=== PATIENT | female | born 2000 | race Caucasian/White ===

== ENCOUNTER → 2023-05-07 13:21 | Outpatient (BNVA) | payer BC, MEDICAID, SELFPAY | PROVIDERS: PCP Nurse Practitioner Family; Visit Provider Internal Medicine | DX: R07.9 Chest pain, unspecified (principal); I51.7 Cardiomegaly | CPT/HCPCS: 93005 ==

== ENCOUNTER 2023-05-22 09:02 | Outpatient (CLI) | payer BC, MEDICAID, SELFPAY ==
--- NOTE | 2023-05-22 09:15 | USCV_ITS ---
Gerson Shrestha Age: 22 Gender: F : 2000 Exam Date: 05/22/2023 09:27 Ordering Phys: Andrei Hatfield M.D ([email or web address]) Technologist: Kayden Ingram Exam Location: [facility] [place] Indication: chest pain, sob BP: 116 / 62 HR: 62 Rhythm: Sinus Technical Quality: Adequate MEASUREMENTS (Male / Female) Normal Values 2D ECHO LVOT Diameter 2.0 cm LV Ejection Fraction MOD 2C 59.5 % LV Ejection Fraction 2C AL 59.8 % LA Diameter 3.0 cm LA Width 3.4 cm LA Height 4.3 cm RA Width 2.9 cm RA Height 5.0 cm Aorta at Sinotubular Diameter 2.5 cm IVC Diameter 1.7 cm M-MODE Aortic Annulus Diameter 2.8 cm LA Ao Ratio MM 1.1 MV E Point Septal Separation 1.0 cm DOPPLER AV Peak Velocity 139.0 cm/s LVOT Peak Velocity 81.0 cm/s AV Area Cont Eq vti 2.1 cm squared AV Area Cont Eq pk 1.8 cm squared MV Peak Velocity 167.0 cm/s MV Area PHT 3.7 cm squared Mitral E to A Ratio 1.9 MV E' Velocity 54.5 cm/s Mitral E to MV E' Ratio 9.6 Mitral E to LV E' Lateral Ratio 8.3 Mitral E to LV E' Septal Ratio 11.4 TR Peak Velocity 265.2 cm/s TR Peak Gradient 28.1 mmHg TR Mean Velocity 205.6 cm/s TR Mean Gradient 17.7 mmHg TR Velocity Time Integral 69.7 cm Right Atrial Pressure 3.0 mmHg Pulmonary Artery Systolic Pressu 31.1 mmHg RV Acceleration Time 0.2 s RV Ejection Time 0.3 s RV AcT/ET 0.5 FINDINGS Left Ventricle Left ventricle is normal in size. LV systolic function is normal with EF of 55-60%. Septal motion is consistent with prior cardiac surgery. Right Ventricle Grossly normal Right Atrium Normal in size Left Atrium Normal in size Mitral Valve Structurally normal mitral valve. Moderate eccenteric mitral regurgitation. Aortic Valve Bioprosthetic aortic valve seen. No significant stenosis. DVI is normal and is 0.72. No significant regurgitation. Tricuspid Valve Mild tricuspid regurgitation. RVSP is normal Pulmonic Valve Not well visualized. Mild pulmonic regurgitation. Pericardium Normal Aorta Normal in size IVC Appears to be normal CONCLUSIONS LV systolic function is normal with EF of 55-60%. Septal motion is consistent with prior cardiac surgery. Moderate eccenteric mitral regurgitation Bioprosthetic aortic valve seen. No significant stenosis. DVI is normal and is 0.72. No significant regurgitation. Mild tricuspid regurgitation. Mild pulmonic regurgitation. No comparison studies are available. Andrei Hatfield MD (Electronically Signed) Final Date: 08 June 2023 12:14 S
== END 2023-05-22 09:03 | disposition home or self-care (01) ==
LOC: RAD 09:05
PROVIDERS: PCP Nurse Practitioner Family; Visit Provider Internal Medicine
DX: I08.1 Rheumatic disorders of both mitral and tricuspid valves (principal); R06.02 Shortness of breath; R07.9 Chest pain, unspecified
CPT/HCPCS: 93306

== ENCOUNTER → 2023-10-14 16:46 | Outpatient (BNVA) | payer OTHER, SELFPAY | PROVIDERS: PCP Nurse Practitioner Family; Visit Provider Nurse Practitioner Family | DX: I50.9 Heart failure, unspecified (principal); Z95.3 Presence of xenogenic heart valve; M32.11 Endocarditis in systemic lupus erythematosus; K21.9 Gastro-esophageal reflux disease without esophagitis; D68.61 Antiphospholipid syndrome; M32.9 Systemic lupus erythematosus, unspecified; Z87.74 Personal history of (corrected) congenital malformations of heart and circulatory system; I95.2 Hypotension due to drugs | CPT/HCPCS: 80053; 85651; 86140; 86160; 86162; 86200; 86235; 86255; 86376; 86431 ==

== ENCOUNTER → 2023-10-29 | Outpatient (BNVA) | payer BC, SELFPAY | PROVIDERS: Visit Provider Nurse Practitioner Family | DX: A57 Chancroid (principal) | CPT/HCPCS: 87491; 87591 ==

== ENCOUNTER 2024-01-05 00:46 | Emergency (ER) | payer BC, SELFPAY ==
[2024-01-05 00:52] VITALS: BP 117/84; PULSE 86; RESP 16; TEMP 36.7; O2SAT 99
--- NOTE | 2024-01-05 01:06 | XRR_ITS ---
PROCEDURE INFORMATION: Exam: XR Chest Exam date and time: 01/05/2024 1:19 AM Age: 23 years old Clinical indication: Angina; Prior surgery; Surgery date: 6+ months; Surgery type: Aortic valve; Additional info: Cxp TECHNIQUE: Imaging protocol: Radiologic exam of the chest. Views: 1 view. COMPARISON: No relevant prior studies available. FINDINGS: Lungs: Unremarkable. No consolidation. Pleural spaces: Unremarkable. No pleural effusion. No pneumothorax. Heart/Mediastinum: Unremarkable. No cardiomegaly. Bones/joints: The patient is post sternotomy. Epicardial pacemaker wire lead is noted. XR/XR chest 1V portable [id number] IMPRESSION: No acute cardiopulmonary disease.
--- NOTE | 2024-01-05 01:06 | ECG_ITS ---
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 Measurements Intervals [place] Rate: 77 P: 20 TN: 163 QRS: 11 QRSD: 99 T: 24 QT: 359 QTc: 408 Interpretive Statements SINUS RHYTHM LEFT ATRIAL ENLARGEMENT [-0.15mV P-WAVE IN V1/V2] POSSIBLE ANTERIOR MYOCARDIAL INFARCTION , PROBABLY OLD [30 ms Q WAVE IN V3/V4, OR R < 0.2 mV IN V4] POSSIBLE INFERIOR MYOCARDIAL INFARCTION , PROBABLY OLD [30 ms Q WAVE IN II/aVF] Compared to ECG 05/07/2023 13:26:41 Myocardial infarct finding now present Electronically Signed On 01-05-2024 12:28:59 CDT by Andrei Hatfield M.D. [id number]
[2024-01-05 01:21] VITALS: BP 118/61; PULSE 77; RESP 16; O2SAT 98
[2024-01-05 01:24] LABS: Basophils % 0.5 %; Eosinophils % 0.7 %; Hematocrit 34.8 % (36-47); Lymphocytes # 2.7 10^3/uL (0.8-4.8); Lymphocytes % 44.1 %; Mean Corpuscular HGB Conc 32.8 g/dL (30-55); Mean Corpuscular Hemoglobin 28.6 pg (27-33); Mean Corpuscular Volume 87.2 fl (85-98); Mean Platelet Volume 11.6 fL (7.4-10.4); Monocytes # 0.4 10^3/uL (0.2-0.9); Monocytes % 6.1 %; Neutrophils # 2.96 10^3/uL (1.8-7.7); Neutrophils % 48.4 %; Nucleated Red Blood Cells % 0 %; Platelet Count 194 10^3/cmm (157-399); Red Blood Count 3.99 10^6/uL (3.85-5.65); Red Cell Distribution Width 13.8 % (12.1-15.1)
[2024-01-05 01:37] VITALS: BP 107/69; PULSE 83; RESP 18; O2SAT 95
[2024-01-05 01:42] LABS: Troponin(5th) Baseline < 6 ng/L (0-10)
[2024-01-05] MEDS: aspirin 81 mg Chew Tablet 324 MG PO (01:42)
[2024-01-05 01:58] LABS: Alanine Aminotransferase 9 U/L (0-33); Albumin Level 4.1 g/dL (3.5-5.2); Alkaline Phosphatase 50 U/L (35-105); Anion Gap 13.9 (5-19); Aspartate Amino Transferase 13 U/L (0-32); Blood Urea Nitrogen 12 mg/dL (6-20); Calcium 9.1 mg/dL (8.5-10.5); Carbon Dioxide 23 mmol/L (22-29); Chloride 110 mmol/L (98-107); Creatinine Clr Calc Pharmacy 121.4931; Globulin 2.2 g/dL (1.3-4.6); Glomerular Filtration Rate 90.5 mL/min (90-130); Glucose 100 mg/dL (65-115); NT Pro B Type Natriuretic Pept 785 pg/mL (0-125); Osmolality Calculated 296 mOsm/kg (285-295); Potassium 3.9 mmol/L (3.5-5.1); Sodium 143 mmol/L (136-145); Total Bilirubin 0.3 mg/dL (0.15-1.2); Total Protein 6.3 g/dL (6.6-8.7)
[2024-01-05 02:18] LABS: HCG Qualitative Urine. Negative (Negative)
[2024-01-05 02:23] LABS: Urine Appearance Clear (CLEAR); Urine Color Yellow (Yellow)
[2024-01-05 02:24] LABS: Add Urine Culture? No; Add Urine Microscopic? YES; Bacteria Urine TRACE /hpf; Bilirubin Urine Neg (Negative); Blood Urine Neg (Negative); Glucose Urine UA Norm (Normal); Ketones Urine Negative (Negative); Leukocyte Esterase Urine Trace (Negative); Mucus Urine 2+ /hpf; Nitrate Urine Negative (Negative); Protein Urine Neg (Negative); RBC Urine 0-4 /hpf (0-2); Urobilinogen Urine Neg (Negative); WBC Urine 0-4 /hpf (0-5); pH Urine 6 (5-7)
[2024-01-05 03:43] LABS: Troponin 5 2HR Delta 0.00001 ABS# (0-10)
[2024-01-05 03:44] VITALS: BP 99/57; PULSE 67; RESP 19; O2SAT 98
--- NOTE | 2024-01-05 03:54 | W.ED.CHESTPA ---
HPI - Chest Pain General: Chief Complaint: Chest Pain Stated Complaint: cp Time Seen by Provider: 01/05/24 01:06 History of Present Illness: 23-year-old female presents emergency department stating that she started to have some chest tightness and pressure at approximately 2230 this evening. She states at that time she felt that she was dizzy and lightheaded and that she was going to pass out. 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 She states that her chest pressure is a 2 out of 10 at present. She states she is feeling like she is having intermittent extra heart beats. She denies shortness of breath, fevers chills or night sweats. She denies nausea diaphoresis or vomiting. Associated symptoms: Reports palpitations Review of Systems General: Reports: 10 or more systems reviewed and unremarkable except in HPI and below Card: Reports: chest pain and palpitations; Denies: irregular heart rhythm or edema Neuro: Reports: dizziness; Denies: headache(s), numbness in extremities or weakness in extremities [facility] ED PFSH: Medical History Lupus History of bicuspid aortic valve Family History Grandmother Chronic kidney disease (CKD) Stroke Grandmother Diabetes Other Lung disease Denies family history of CAD (coronary artery disease) Clotting disorder Dementia Hyperlipidemia Psychiatric illness Suicide Anesthesia complication Bleeding disorder Family history of premature coronary artery disease Cancer Hypertension Social History Smoking and tobacco/nicotine status: never used tobacco/nicotine Alcohol intake: never Substance/Drug Use: never Female Reproductive History: Date of last menstrual period: 12/11/23 Physical Exam Narrative: EXAM NARRATIVE: Constitutional: the patient appears well nourished and with normal development. Vital signs reviewed as documented. HENMT: Normocephalic, atraumatic. External ears normal appearance without drainage. Nose without drainage, normal appearance. Mucus membranes moist. Neck is supple, No jugular venous distension, trachea is midline, no appreciable carotid bruits. No lymphadenopathy. No meningeal signs. Flexion, extension and lateral rotation is without pain. Eyes: Pupils are equal, round, reactive to light and accommodation. No scleral icterus. Extra-ocular movement are intact. Thorax is symmetrical and with equal rise and fall with respirations. Resp: Lungs are clear to auscultation. No wheezes, rales, crackles or ronchi at present. Cardio: Regular rate and rhythm. Positive S1, S2. No appreciable murmurs, rubs or gallops. GI: Abdominal exam reveals normal bowel sounds to all quadrants. No organomegaly. No obvious palpable masses noted. No hepatomegally appreciated. Soft, non-tender to palpation. Extremity: Extremities are non-edematous and both femoral and pedal pulses are 2+ and equal bilaterally. Moves all extremities well, sensation in all extremities. Neuro: Alert and oriented x4, person, place, time and situation. Cranial nerves II through XII are grossly intact, there is no focal neurological deficits that I can appreciate at present. Sensation intact to all extremities. 2-point discrimination intact. Light touch intact to all extremities. Motor strength in the upper and lower extremities are equal and bilateral 5/5. Psych: Cooperative, calm, normal thought process, appropriate judgment. Skin: No lesions, rashes. No gross abnormalities noted. Back: Symmetrical, no obvious deformity, No CVA tenderness Course Vital Signs: Vital signs: Vital Signs Temperature 98.1 F 01/05/24 00:52 Pulse Rate 67 01/05/24 03:44 Respiratory Rate 19 H 01/05/24 03:44 Blood Pressure 99/57 01/05/24 03:44 Pulse Oximetry 98 01/05/24 03:44 Oxygen Delivery Me thod Room Air 01/05/24 03:44 MDM - Chest Pain Medical Decision Making Physical exam completed and documented I will obtain a CBC and CMP and both were essentially unremarkable. Twelve-lead EKG demonstrated sinus rhythm her cardiac cath technician did demonstrate intermittent PVCs. Cardiac enzymes were negative. Her BNP was slightly elevated at 785. Urinalysis was negative. Chest x-ray was unremarkable. I discussed the laboratory findings with the patient and we will have her follow-up with her primary care and her county program technician. Medical Records I reviewed the patient's medical records. Lab Data I reviewed the patient's lab results. 01/05/24 01:17 01/05/24 01:17 Radiology Impressions Chest X-Ray 01/05/24 01:06 IMPRESSION: No acute cardiopulmonary disease. Laboratory Results WBC 6.10 10^3/uL (3.29-11.43) 01/05/24 01:17 RBC 3.99 10^6/uL (3.85-5.65) 01/05/24 01:17 Hgb 11.40 g/dL (11.27-16.99) 01/05/24 01:17 Hct 34.8 % (36-47) L 01/05/24 01:17 MCV 87.2 fl (85-98) 01/05/24 01:17 MCH 28.6 pg (27-33) 01/05/24 01:17 MCHC 32.8 g/dL (30-55) 01/05/24 01:17 RDW 13.8 % (12.1-15.1) 01/05/24 01:17 Plt Count 194 10^3/cmm (157-399) 01/05/24 01:17 MPV 11.6 fL (7.4-10.4) H 01/05/24 01:17 Neut % (Auto) 48.4 % 01/05/24 01:17 Lymph % (Auto) 44.1 % 01/05/24 01:17 [place] % (Auto) 6.1 % 01/05/24 01:17 Eos % (Auto) 0.7 % 01/05/24 01:17 Baso % (Auto) 0.5 % 01/05/24 01:17 Neut # (Auto) 2.96 10^3/uL (1.8-7.7) 01/05/24 01:17 Lymph # (Auto) 2.7 10^3/uL (0.8-4.8) 01/05/24 01:17 [place] # (Auto) 0.4 10^3/uL (0.2-0.9) 01/05/24 01:17 Eos # (Auto) 0.0 10^3/uL (0.0-0.8) 01/05/24 01:17 Baso # (Auto) 0.0 10^3/uL (0.0-0.1) 01/05/24 01:17 Nucleated RBC % (auto) 0 % 01/05/24 01:17 Nucleated RBCs # 0.0 /100WBC 01/05/24 01:17 PT 15.60 SECONDS (12.1-14.9) H 01/05/24 01:17 INR 1.20 (0.8-1.2) 01/05/24 01:17 Sodium 143 mmol/L (136-145) 01/05/24 01:17 Potassium 3.9 mmol/L (3.5-5.1) 01/05/24 01:17 Chloride 110 mmol/L (98-107) H 01/05/24 01:17 Carbon Dioxide 23 mmol/L (22-29) 01/05/24 01:17 Anion Gap 13.9 (5-19) 01/05/24 01:17 BUN 12 mg/dL (6-20) 01/05/24 01:17 Creatinine 0.8 mg/dL (0.5-0.9) 01/05/24 01:17 GFR Calculation 90.5 mL/min (90-130) 01/05/24 01:17 Glucose 100 mg/dL (65-115) 01/05/24 01:17 Calculated Osmolality 296 mOsm/kg (285-295) H 01/05/24 01:17 Calcium 9.1 mg/dL (8.5-10.5) 01/05/24 01:17 Total Bilirubin 0.3 mg/dL (0.15-1.2) 01/05/24 01:17 AST 13 U/L (0-32) 01/05/24 01:17 ALT 9 U/L (0-33) 01/05/24 01:17 Alkaline Phosphatase 50 U/L (35-105) 01/05/24 01:17 Troponin T Baseline < 6 ng/L (0-10) 01/05/24 01:17 Troponin T 120 Minute 6.00 ng/L (0-10) 01/05/24 03:18 Delta Troponin T 0.17811 ABS# (0-10) 01/05/24 03:18 NT-Pro-B Natriuret Pep 785 pg/mL (0-125) H 01/05/24 01:17 Total Protein 6.3 g/dL (6.6-8.7) L 01/05/24 01:17 Albumin 4.1 g/dL (3.5-5.2) 01/05/24 01:17 Globulin 2.2 g/dL (1.3-4.6) 01/05/24 01:17 HCG, Qual Negative (Negative) 01/05/24 02:10 Urine Color Yellow (Yellow) 01/05/24 02:10 Urine Appearance Clear (CLEAR) 01/05/24 02:10 Urine pH 6 (5-7) 01/05/24 02:10 Ur Specific [place] 1.020 (1.005-1.030) 01/05/24 02:10 Urine Protein Neg (Negative) 01/05/24 02:10 Urine Glucose (UA) Norm (Normal) 01/05/24 02:10 Urine Ketones Negative (Negative) 01/05/24 02:10 Urine Blood Neg (Negative) 01/05/24 02:10 Urine Nitrate Negative (Negative) 01/05/24 02:10 Urine Bilirubin Neg (Negative) 01/05/24 02:10 Urine Urobilinogen Neg mg/dL (Negative) 01/05/24 02:10 Ur Leukocyte Esterase Trace (Negative) H 01/05/24 02:10 Urine RBC 0-4 /hpf (0-2) H 01/05/24 02:10 Urine WBC 0-4 /hpf (0-5) H 01/05/24 02:10 Ur Squamous Epith Cells 5-10 /hpf (0-5) H 01/05/24 02:10 Amorphous Sediment Not Reportable 01/05/24 02:10 Urine Bacteria Trace /hpf (NONE) 01/05/24 02:10 Urine Mucus 2+ /hpf 01/05/24 02:10 All radiology interpretation(s) finalized by discharge EKG Data EKG 1: Interpretation: Twelve-lead EKG obtained at 00 48 and reviewed at 00 50 demonstrates sinus rhythm, ventricular rate 77, SC interval 163, QRS duration 99, QT 359, QTc [address] elevation or depression to demonstrate acute ischemia or infarction at present. Discharge Plan Discharge Patient Disposition: Home Clinical Impression: Atypical chest pain, Heart palpitations Condition: Stable Prescriptions: No Action bumetanide 1 mg tablet 1 mg PO DAILY 30 Days Qty: 30 5RF carvedilol 3.125 mg tablet 3.125 mg PO BID 30 Days Qty: 60 5RF enoxaparin 60 mg/0.6 mL syringe 60 mg SUBCUT BID 30 Days Qty: 36 3RF famotidine 20 mg tablet 20 mg PO DAILY 30 Days Qty: 30 3RF midodrine 5 mg tablet See Rx Instructions .ROUTE .COMPLEX Qty: 30 3RF Dose Instruction: Take 1 tablet by mouth once daily Rx Instructions: Take 1 tablet by mouth once daily mycophenolate mofetil 500 mg tablet 500 mg PO QDAY Qty: 30 3RF hydroxychloroquine 200 mg tablet See Rx Instructions .ROUTE .COMPLEX Qty: 60 3RF Dose Instruction: Take 1 tablet by mouth twice daily Rx Instructions: Take 1 tablet by mouth twice daily potassium chloride 10 mEq capsule, extended release See Rx Instructions .ROUTE .COMPLEX Qty: 30 3RF Dose Instruction: Take 1 capsule by mouth once daily Rx Instructions: Take 1 capsule by mouth once daily Entresto 24-26 mg tablet 1 tab PO BID Qty: 60 3RF clindamycin HCl 300 mg capsule 300 mg PO TID 10 Days Qty: 30 0RF Discharge Orders: Discharge ED (Routine); Ordered 01/05/24 Ordered By: Jay Blanco Referrals: Mary Steele NP [Primary Care Provider] - Discharge Diet: Usual diet Discharge Activity: Resume usual activity Patient Instructions: Opioid Safety, Pain Management Activity Restrictions/Additional Instructions: Activity Restrictions/Additional Instructions: Thank you for choosing [facility] for your healthcare needs today. Please realize that you were seen in the Emergency Department and that we are providing you with an emergency medical screening exam and this may not be a complete and all inclusive of all the testing and or medical work-up that you may need to determine your ailment or severity of your illness. It is very important that you follow-up as instructed with your Primary care provider or Specialist for additional evaluation and to discuss your medical treatment plan. You may return to the Emergency Department should you have concerns or if your condition changes or worsens in any way. Coding Level of Care Code ED Paste Thinner for Elizabeth Powers
[2024-01-05 04:08] VITALS: BP 98/64; PULSE 76; RESP 19; O2SAT 97
== END 2024-01-05 04:19 | disposition home or self-care (01) ==
PROVIDERS: Emergency Provider Internal Medicine; PCP Nurse Practitioner Family
DX: R07.89 Other chest pain (principal); R00.2 Palpitations
CPT/HCPCS: 71045; 80053; 81001; 81025; 83880; 84484; 85025; 85610; 93005; 99285

== ENCOUNTER 2024-01-30 12:09 | Emergency (ER) | payer BC, OTHER, SELFPAY ==
[2024-01-30 12:13] VITALS: BP 93/54; PULSE 83; RESP 18; TEMP 36.8; O2SAT 99; BMI 25.8
[2024-01-30 13:01] LABS: Basophils % 0.3 %; Eosinophils % 0.5 %; Hematocrit 34.7 % (36-47); Lymphocytes # 1.5 10^3/uL (0.8-4.8); Mean Corpuscular Hemoglobin 28.5 pg (27-33); Mean Corpuscular Volume 89.2 fl (85-98); Mean Platelet Volume 11.7 fL (7.4-10.4); Monocytes # 0.5 10^3/uL (0.2-0.9); Monocytes % 6.4 %; Neutrophils # 5.57 10^3/uL (1.8-7.7); Neutrophils % 72.4 %; Nucleated Red Blood Cells % 0 %; Platelet Count 162 10^3/cmm (157-399); Red Blood Count 3.89 10^6/uL (3.85-5.65); Red Cell Distribution Width 13.8 % (12.1-15.1); White Blood Count 7.69 10^3/uL (3.29-11.43)
[2024-01-30] MEDS: sodium chloride 0.9% 500 ML IV (13:07)
[2024-01-30 13:14] LABS: INR 1.16 (0.8-1.2)
[2024-01-30 13:17] LABS: Lactic Sepsis W/Reflex 0.8 mmol/L (0.5-2.2)
[2024-01-30 13:20] LABS: HCG, Serum Qual Negative (Negative)
[2024-01-30] MEDS: HYDROmorphone 1 mg/mL INJ 1 mL IV (13:22)
[2024-01-30 13:28] LABS: Alanine Aminotransferase 45 U/L (0-33); Albumin Level 3.8 g/dL (3.5-5.2); Alkaline Phosphatase 92 U/L (35-105); Anion Gap 12.7 (5-19); Aspartate Amino Transferase 79 U/L (0-32); Blood Urea Nitrogen 12 mg/dL (6-20); Calcium 8.6 mg/dL (8.5-10.5); Carbon Dioxide 24 mmol/L (22-29); Chloride 105 mmol/L (98-107); Creatinine Clr Calc Pharmacy 161.9908; Globulin 2.6 g/dL (1.3-4.6); Glomerular Filtration Rate 126.2 mL/min (90-130); Glucose 94 mg/dL (65-115); NT Pro B Type Natriuretic Pept 1332 pg/mL (0-125); Osmolality Calculated 286 mOsm/kg (285-295); Potassium 3.7 mmol/L (3.5-5.1); Sodium 138 mmol/L (136-145); Total Bilirubin 0.6 mg/dL (0.15-1.2); Total Protein 6.4 g/dL (6.6-8.7)
[2024-01-30 13:33] LABS: Add Urine Microscopic? NO; Charge for UA Resulting for Rev
[2024-01-30 13:39] LABS: Bilirubin Urine Neg (Negative); Blood Urine Neg (Negative); Glucose Urine UA Norm (Normal); Ketones Urine Negative (Negative); Leukocyte Esterase Urine Negative (Negative); Nitrate Urine Negative (Negative); Protein Urine Neg (Negative); Specific Gravity, Urine 1.015 (1.005-1.030); Sulfosalicylic Acid Urine Negative (Negative); Urine Appearance Clear (CLEAR); Urine Color Yellow (Yellow); Urobilinogen Urine 1 mg/dL (Negative); pH Urine 8 (5-7)
--- NOTE | 2024-01-30 13:53 | CTR_ITS ---
PROCEDURE INFORMATION: Exam: CT Abdomen And Pelvis With Contrast Exam date and time: 01/30/2024 2:03 PM Age: 23 years old Clinical indication: Abdominal pain; Flank; Other: Bilateral; Prior surgery; Surgery date: 6+ months; Surgery type: Aortic valve; Additional info: Severe bilateral flank and lower abdominal pain. , Extensive medical HX including aortic root dissection TECHNIQUE: Imaging protocol: Computed tomography of the abdomen and pelvis with contrast. Axial, coronal and sagittal reformatted images were created and reviewed. Radiation optimization: All CT scans at this facility use at least one of these dose optimization techniques: automated exposure control; mA and/or kV adjustment per patient size (includes targeted exams where dose is matched to clinical indication); or iterative reconstruction. Contrast material: OMNI 350; Contrast volume: 100 ml; Contrast route: INTRAVENOUS (IV); COMPARISON: CR (CHEST, ) 01/05/2024 1:19 AM RADIATION DOSE METRICS: Total DLP (mGy-cm): 594.53 FINDINGS: Heart: Evidence of open heart surgery. Liver: Mild nonspecific periportal edema. Gallbladder and bile ducts: No radiodense gallstones. No biliary ductal dilatation. Pancreas: Unremarkable. Spleen: Unremarkable. Adrenal glands: Normal. No mass. Kidneys and ureters: No mass. No radiodense calculi. No hydronephrosis. Stomach and bowel: No bowel wall thickening. No obstruction. No pneumatosis. Appendix: Normal. Intraperitoneal space: Small nonspecific free pelvic fluid, likely physiologic. No organized fluid collection. No free air. Vasculature: Unremarkable. No aneurysm. Lymph nodes: Small mesenteric lymph nodes, nonspecific in appearance. No pathologically enlarged lymph nodes. Urinary bladder: Unremarkable as visualized. Reproductive: 4.5 x 3.7 cm right adnexal cystic lesion with nonspecific prominence of the para-ovarian vasculature. Bones/joints: No acute osseous abnormality. Soft tissues: Unremarkable. CT/CT abdomen pelvis w con* [id number] IMPRESSION: 1. 4.5 x 3.7 cm right adnexal cystic lesion with nonspecific prominence of the para-ovarian vasculature and small nonspecific free pelvic fluid. Pelvic ultrasound is recommended for further evaluation and to exclude ovarian torsion. 2. Additional findings, as above.
[2024-01-30] MEDS: iohexol 350 mg/mL 500 mL Btl (per mL) IV (14:03)
[2024-01-30 14:57] VITALS: PULSE 80; RESP 18; O2SAT 99
--- NOTE | 2024-01-30 14:59 | USR_ITS ---
PROCEDURE INFORMATION: Exam: US Duplex Artery and Vein of the Abdominal and/or Reproductive Organs. Complete Ovaries Exam date and time: 01/30/2024 3:24 PM Age: 23 years old Clinical indication: Abnormal findings; Abnormal imaging test; Additional info: Concern for ovarian torsion based on HX, exam, CT LABS AND CLINICAL REPORTS: Last menstrual period start date: Unknown TECHNIQUE: Imaging protocol: Real-time duplex ultrasound scan of the arterial and venous flow with color Doppler flow and spectral waveform analysis with image documentation. Complete duplex exam focused on the ovaries. Duplex exam was performed to evaluate for torsion and other vascular conditions. COMPARISON: CT abdomen pelvis w con* [id number] 01/30/2024 2:03 PM FINDINGS: Right ovary/adnexa: Normal duplex of the ovary. Normal Doppler waveforms and color flow. Arterial and venous flow are normal. No evidence of ovarian torsion. Left ovary/adnexa: Normal duplex of the ovary. Normal Doppler waveforms and color flow. Arterial and venous flow are normal. No evidence of ovarian torsion. PROCEDURE INFORMATION: Exam: US Pelvis, Transvaginal Exam date and time: 01/30/2024 3:24 PM Age: 23 years old Clinical indication: Abnormal findings; Abnormal imaging test; Additional info: Concern for ovarian torsion based on HX, exam, CT TECHNIQUE: Imaging protocol: Real-time transvaginal pelvic ultrasound with image documentation. Transvaginal imaging was used for better evaluation of the endometrium, adnexa, and/or cervix. COMPARISON: CT abdomen pelvis w con* [id number] 01/30/2024 2:03 PM FINDINGS: Uterus: 7.3 x 3.3 x 4.7 cm. Normal endometrial thickness, measuring approximately 6 mm. Right ovary/adnexa: 5.6 x 4.6 x 5.3 cm. 4.6 x 3.2 x 5.6 cm cyst. No solid mass. Normal ovarian blood flow. Left ovary/adnexa: 2.3 x 1.7 x 2.8 cm. No mass. Normal ovarian blood flow. Intraperitoneal space: Moderate free pelvic fluid. US/US pelvis lmt w transvag IMPRESSION: Normal ovarian arterial and venous vascular flow. No evidence ovarian torsion. IMPRESSION: 4.6 x 3.2 x 5.6 cm right ovarian cyst and moderate free pelvic fluid.
[2024-01-30 15:14] VITALS: BP 85/52
[2024-01-30] MEDS: midodrine 5 mg TABLET PO (15:14)
--- NOTE | 2024-01-30 15:35 | PC.NURSE ---
ASSUMED CARE OF PATIENT FROM BELINDA APPIAH AT 1515.
[2024-01-30 16:30] VITALS: BP 99/63; PULSE 78; O2SAT 100
--- NOTE | 2024-01-30 16:58 | ED_ITS ---
HPI - Back Pain/Injury 2 General: Chief Complaint: Back Pain/Injury Stated Complaint: FLANK PAIN Time Seen by Provider: 01/30/24 12:16 Source: patient, family and EMS Mode of arrival: EMS Limitations: no limitations History of Present Illness: Patient presents to the ED with complaint of bilateral flank pain and nausea vomiting sudden onset last night. Denies any dysuria vaginal discharge. Denies any sexual activity not on any contraceptives. EMS administered 200 mcg of fentanyl 4 mg Zofran which patient reports pain is 6 out of 10. Was 10 out of 10. Patient has a fairly extensive medical history for someone her age. 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 Happened last November. Patient takes Bumex carvedilol (midodrine translocated midodrine mycophenolate, entresto. She reports no previous abdominal surgeries. Review of Systems 2 General: Reports: 10 or more systems reviewed and unremarkable except in HPI and below PFSH ED 2 PFSH: Medical History Lupus History of bicuspid aortic valve Family History Grandmother Chronic kidney disease (CKD) Stroke Grandmother Diabetes Other Lung disease Denies family history of CAD (coronary artery disease) Clotting disorder Dementia Hyperlipidemia Psychiatric illness Suicide Anesthesia complication Bleeding disorder Family history of premature coronary artery disease Cancer Hypertension Social History Smoking and tobacco/nicotine status: never used tobacco/nicotine Alcohol intake: never Substance/Drug Use: never Physical Exam 2 Const: COMMON NORMALS: no acute distress (But does appear to be in moderate amount of discomfort), average body habitus, patient oriented x3, healthy appearing, alert and well nourished GENERAL APPEARANCE: cooperative, well kempt and well developed; not comfortable and not in distress HENMT: COMMON NORMALS: normocephalic, atraumatic, external ears normal and moist oral mucous membranes HEAD & SCALP: normocephalic and atraumatic E XTERNAL EAR: Yes external ears normal Eye: COMMON NORMALS: Equal, round and reactive pupils present, EOMs intact bilaterally and conjunctivae normal CONJUNCTIVA: Yes conjunctivae normal P UPIL: Yes Equal, round and reactive pupils present Neck/C-Spine: COMMON NORMALS: full ROM, no lymphadenopathy and supple Chest: CHEST: Yes Symmetrical chest wall rise and No Surgical scars present (Chest) Resp: COMMON NORMALS: normal respiratory effort, No retractions, No use of accessory muscles and clear to auscultation bilaterally AUSCULTATION: clear to auscultation bilaterally Cardio: COMMON NORMALS: regular rate, regular rhythm, S1 normal heart sound present, S2 normal heart sound present, No gallops present (Cardio), No clicks present (Cardio), No murmurs present (Cardio) and No rub (Cardio) RATE: r egular rate RHYTHM: regular rhythm HEART SOUNDS: S1 normal heart sound present, S2 normal heart sound present and no murmurs PERIPHERAL PULSES: o ther (Radial pulses 2+ and symmetric) GI: COMMON NORMALS: Soft to palpation, non-tender and no masses INSPECTION: No abdominal distension PALPATION: Yes Soft to palpation, No Guarding due to palpation present (GI) and No Rebound tenderness present OTHER: Bilateral lower abdominal tenderness with increased tenderness in the adnexal area on palpation. As well as may be some in the middle of the abdomen. : COMMON NORMALS: Yes no CVA tenderness BLADDER/KIDNEY EXAM: Yes no CVA tenderness Back/Pelvis: COMMON NORMALS: no CVA tenderness Extremity: COMMON NORMALS: normal to inspection, full ROM, capillary refill normal and no clubbing, cyanosis or edema Neuro: COMMON NORMALS: patient oriented x3 SENSORIUM/ORIENTATION: Yes alert Psych: APPEARANCE: Yes well kempt Skin: COMMON NORMALS: no rashes or lesions noted, no wounds, turgor normal and no jaundice GENERAL SKIN EXAM: no rashes or lesions noted and turgor normal Course 2 Reevaluation(s): Reevaluation #1: Still having some pain. Patient reports improvement from earlier expresses understanding of counseling. Time: 17:00 Vital Signs: Vital signs: Vital Signs Temperature 98.2 F 01/30/24 12:13 Pulse Rate 78 01/30/24 16:30 Respiratory Rate 18 01/30/24 14:57 Blood Pressure 99/63 01/30/24 16:30 Pulse Oximetry 100 01/30/24 16:30 Oxygen Delivery Me thod Room Air 01/30/24 12:13 MDM - Back Pain/Injury Medical Decision Making CT scan of the abdomen pelvis done and I saw no acute abnormality, radiology read specifies a right adnexal cystic lesion with some prominence in the paraovarian vasculature and suggested pelvic ultrasound to rule out torsion. Labs are fairly unremarkable thankfully. Patient was given dose of midodrine for her blood pressure is but is due for the time she normally takes it. Also had 500 fluids, 1 Dilaudid, Toradol. Due to timing did give patient her carvedilol. Lactic acid is normal. Serum Preg negative. Medical Records I reviewed the patient's medical records. Labs I reviewed the patient's lab results. 01/30/24 12:52 01/30/24 12:52 Radiology Impressions Abdomen/Pelvis CT 01/30/24 13:53 IMPRESSION: 1. 4.5 x 3.7 cm right adnexal cystic lesion with nonspecific prominence of the para-ovarian vasculature and small nonspecific free pelvic fluid. Pelvic ultrasound is recommended for further evaluation and to exclude ovarian torsion. 2. Additional findings, as above. Pelvic/Transvag US 01/30/24 14:59 IMPRESSION: Normal ovarian arterial and venous vascular flow. No evidence ovarian torsion. IMPRESSION: 4.6 x 3.2 x 5.6 cm right ovarian cyst and moderate free pelvic fluid. Laboratory Results WBC 7.69 10^3/uL (3.29-11.43) 01/30/24 12:52 RBC 3.89 10^6/uL (3.85-5.65) 01/30/24 12:52 Hgb 11.10 g/dL (11.27-16.99) L 01/30/24 12:52 Hct 34.7 % (36-47) L 01/30/24 12:52 MCV 89.2 fl (85-98) 01/30/24 12:52 MCH 28.5 pg (27-33) 01/30/24 12:52 MCHC 32.0 g/dL (30-55) 01/30/24 12:52 RDW 13.8 % (12.1-15.1) 01/30/24 12:52 Plt Count 162 10^3/cmm (157-399) 01/30/24 12:52 MPV 11.7 fL (7.4-10.4) H 01/30/24 12:52 Neut % (Auto) 72.4 % 01/30/24 12:52 Lymph % (Auto) 20.0 % 01/30/24 12:52 [place] % (Auto) 6.4 % 01/30/24 12:52 Eos % (Auto) 0.5 % 01/30/24 12:52 Baso % (Auto) 0.3 % 01/30/24 12:52 Neut # (Auto) 5.57 10^3/uL (1.8-7.7) 01/30/24 12:52 Lymph # (Auto) 1.5 10^3/uL (0.8-4.8) 01/30/24 12:52 [place] # (Auto) 0.5 10^3/uL (0.2-0.9) 01/30/24 12:52 Eos # (Auto) 0.0 10^3/uL (0.0-0.8) 01/30/24 12:52 Baso # (Auto) 0.0 10^3/uL (0.0-0.1) 01/30/24 12:52 Nucleated RBC % (auto) 0 % 01/30/24 12:52 Nucleated RBCs # 0.0 /100WBC 01/30/24 12:52 PT 15.20 SECONDS (12.1-14.9) H 01/30/24 12:52 INR 1.16 (0.8-1.2) 01/30/24 12:52 APTT 33.0 SECONDS (23.9-36.7) 01/30/24 12:52 Sodium 138 mmol/L (136-145) 01/30/24 12:52 Potassium 3.7 mmol/L (3.5-5.1) 01/30/24 12:52 Chloride 105 mmol/L (98-107) 01/30/24 12:52 Carbon Dioxide 24 mmol/L (22-29) 01/30/24 12:52 Anion Gap 12.7 (5-19) 01/30/24 12:52 BUN 12 mg/dL (6-20) 01/30/24 12:52 Creatinine 0.6 mg/dL (0.5-0.9) 01/30/24 12:52 GFR Calculation 126.2 mL/min (90-130) 01/30/24 12:52 Glucose 94 mg/dL (65-115) 01/30/24 12:52 Calculated Osmolality 286 mOsm/kg (285-295) 01/30/24 12:52 Lactic Acid 0.8 mmol/L (0.5-2.2) 01/30/24 12:52 Calcium 8.6 mg/dL (8.5-10.5) 01/30/24 12:52 Total Bilirubin 0.6 mg/dL (0.15-1.2) 01/30/24 12:52 AST 79 U/L (0-32) H 01/30/24 12:52 ALT 45 U/L (0-33) H 01/30/24 12:52 Alkaline Phosphatase 92 U/L (35-105) 01/30/24 12:52 NT-Pro-B Natriuret Pep 1332 pg/mL (0-125) H 01/30/24 12:52 Total Protein 6.4 g/dL (6.6-8.7) L 01/30/24 12:52 Albumin 3.8 g/dL (3.5-5.2) 01/30/24 12:52 Globulin 2.6 g/dL (1.3-4.6) 01/30/24 12:52 HCG, Qual Negative (Negative) 01/30/24 12:52 Urine Color Yellow (Yellow) 01/30/24 13:15 Urine Appearance Clear (CLEAR) 01/30/24 13:15 Urine pH 8 (5-7) H 01/30/24 13:15 Ur Specific [place] 1.015 (1.005-1.030) 01/30/24 13:15 Urine Protein Neg (Negative) 01/30/24 13:15 Urine Glucose (UA) Norm (Normal) 01/30/24 13:15 Urine Ketones Negative (Negative) 01/30/24 13:15 Urine Blood Neg (Negative) 01/30/24 13:15 Urine Nitrate Negative (Negative) 01/30/24 13:15 Urine Bilirubin Neg (Negative) 01/30/24 13:15 Prot Sulfosalicylic Acd Negative (Negative) 01/30/24 13:15 Urine Urobilinogen 1 mg/dL (Negative) H 01/30/24 13:15 Ur Leukocyte Esterase Negative (Negative) 01/30/24 13:15 All radiology interpretation(s) finalized by discharge Discharge Plan Discharge Patient Disposition: Home Clinical Impression: Ovarian cyst rupture Condition: Stable Prescriptions: New Percocet 5-325 mg tablet 1 tab PO Q8H PRN (Reason: pain, severe) Qty: 7 0RF ondansetron 4 mg tablet,disintegrating 4 mg PO Q8H PRN (Reason: nausea and vomiting) 5 Days Qty: 14 0RF ketorolac 10 mg tablet 10 mg PO Q4H PRN (Reason: pain) 5 Days Qty: 20 0RF Rx Instructions: do not exceed 4 doses per day No Action bumetanide 1 mg tablet 1 mg PO DAILY 30 Days Qty: 30 5RF carvedilol 3.125 mg tablet 3.125 mg PO BID 30 Days Qty: 60 5RF enoxaparin 60 mg/0.6 mL syringe 60 mg SUBCUT BID 30 Days Qty: 36 3RF famotidine 20 mg tablet 20 mg PO DAILY 30 Days Qty: 30 3RF midodrine 5 mg tablet See Rx Instructions .ROUTE .COMPLEX Qty: 30 3RF Dose Instruction: Take 1 tablet by mouth once daily Rx Instructions: Take 1 tablet by mouth once daily mycophenolate mofetil 500 mg tablet 500 mg PO QDAY Qty: 30 3RF hydroxychloroquine 200 mg tablet See Rx Instructions .ROUTE .COMPLEX Qty: 60 3RF Dose Instruction: Take 1 tablet by mouth twice daily Rx Instructions: Take 1 tablet by mouth twice daily potassium chloride 10 mEq capsule, extended release See Rx Instructions .ROUTE .COMPLEX Qty: 30 3RF Dose Instruction: Take 1 capsule by mouth once daily Rx Instructions: Take 1 capsule by mouth once daily Entresto 24-26 mg tablet 1 tab PO BID Qty: 60 3RF clindamycin HCl 300 mg capsule 300 mg PO TID 10 Days Qty: 30 0RF Discharge Orders: Discharge ED (Routine); Ordered 01/30/24 Ordered By: Hang Leslie Referrals: Mary Steele NP [Primary Care Provider] - Discharge Diet: Usual diet Discharge Activity: Limit activity as instructed Patient Instructions: Ruptured Ovarian Cyst (ED), Opioid Safety, Pain Management Activity Restrictions/Additional Instructions: Make sure to establish and follow-up with a [facility]ET[facility] ATTENDANT within 1-2 wks. 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
[2024-01-30] MEDS: carvedilol 3.125 mg Tablet PO (17:06)
[2024-01-30] MEDS: ketorolac 30 mg/mL INJ IVP (17:06)
[2024-01-30] MEDS: HYDROcodone-acetaminophen 7.5-325 mg Tablet 1 TAB PO (17:06)
[2024-01-30 17:50] VITALS: BP 96/60; PULSE 77; RESP 17; O2SAT 99
== END 2024-01-30 17:52 | disposition home or self-care (01) ==
PROVIDERS: Emergency Provider Emergency Medicine; PCP Nurse Practitioner Family
DX: N83.201 Unspecified ovarian cyst, right side (principal)
CPT/HCPCS: 36415; 74177; 76830; 76857; 80053; 81003; 83605; 83880; 84703; 85025; 85610; 85730; 96361; 96374; 96375; 99285; J1170; J1885; J7040; Q9967

== ENCOUNTER 2024-05-02 00:43 | Emergency (ER) | payer OTHER, BC, SELFPAY ==
[2024-05-02] VITALS (7 sets, daily range): BP systolic 118–123; BP diastolic 69–94; PULSE 68–94; RESP 16–18; TEMP 36.8; O2SAT 97–100; BMI 26.6
--- NOTE | 2024-05-02 00:49 | ECG_ITS ---
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 Measurements Intervals [place] Rate: 79 P: 15 MO: 173 QRS: 28 QRSD: 107 T: 56 QT: 355 QTc: 409 Interpretive Statements SINUS RHYTHM LEFT ATRIAL ENLARGEMENT [-0.15mV P-WAVE IN V1/V2] Compared to ECG 01/05/2024 00:48:03 Myocardial infarct finding no longer present Electronically Signed On 05-03-2024 7:39:17 CDT by Andrei Hatfield M.D. [id number] f
--- NOTE | 2024-05-02 00:57 | CTR_ITS ---
PROCEDURE INFORMATION: Exam: CTA Chest With Contrast CTA Abdomen and Pelvis With Contrast Exam date and time: 05/02/2024 1:43 AM Age: 23 years old Clinical indication: Left-sided; Other: N/a; Prior surgery; Surgery date: 6+ months; Surgery type: Aortic valve replacement; Patient HX: C/O left sided chest pain onset two hours ago. History of aortic root rupture with abscess. ; Additional info: Cp HX of aortic rupture following abscess TECHNIQUE: Imaging protocol: Computed tomographic angiography of the chest with contrast. Exam focused on the arteries. Computed tomographic angiography of the abdomen and pelvis with contrast. Exam focused on the arteries. 3D rendering (Not supervised by radiologist): MIP and/or 3D reconstructed images were created by the technologist. Radiation optimization: All CT scans at this facility use at least one of these dose optimization techniques: automated exposure control; mA and/or kV adjustment per patient size (includes targeted exams where dose is matched to clinical indication); or iterative reconstruction. Contrast material: OMNI 350; Contrast volume: 100 ml; Contrast route: INTRAVENOUS (IV); COMPARISON: CT abdomen pelvis w con* [id number] 01/30/2024 2:03 PM RADIATION DOSE METRICS: Total DLP (mGy-cm): 903.67 FINDINGS: VASCULATURE: Pulmonary arteries: Normal. No pulmonary emboli. Aorta: No aortic aneurysm. No aortic dissection. Celiac trunk and mesenteric arteries: No occlusion or significant stenosis. Renal arteries: No occlusion or significant stenosis. Right iliac arteries: No occlusion or significant stenosis. Left iliac arteries: No occlusion or significant stenosis. CHEST: Lungs: Unremarkable. No consolidation. No masses. Pleural spaces: Unremarkable. No pneumothorax. No pleural effusion. Heart: Unremarkable. No cardiomegaly. No pericardial effusion. ABDOMEN AND PELVIS: Liver: No mass. Gallbladder and biliary ducts: Unremarkable. No calcified stones. No ductal dilation. Pancreas: Unremarkable. No mass. No ductal dilation. Spleen: Unremarkable. No splenomegaly. Adrenal glands: Unremarkable. No mass. Kidneys and ureters: Unremarkable. No solid mass. No hydronephrosis. Stomach and bowel: There are a few air-fluid levels involving minimally distended loops of small bowel. This is a nonspecific finding but can be seen with an ileus. No bowel wall thickening is noted. Appendix: No evidence of appendicitis. Intraperitoneal space: Unremarkable. No free air. No significant fluid collection. Urinary bladder: Unremarkable. No mass. Reproductive: There is a right adnexal/ovarian cyst measuring 5.7 cm in size (previously 5 cm in size). Lymph nodes: Unremarkable. No enlarged lymph nodes. Bones/joints: There are postoperative changes status post median sternotomy. No acute bony abnormalities are otherwise appreciated. Soft tissues: Unremarkable. CT/CT [facility] [id number] IMPRESSION: 1. Air-fluid levels involving minimally distended loops of small bowel. This is a nonspecific finding but can be seen with an ileus. 2. Right ovarian cyst measuring 5.7 cm in size.
[2024-05-02 01:03] LABS: Basophils % 0.4 %; Eosinophils # 0.1 10^3/uL (0.0-0.8); Eosinophils % 0.6 %; Hematocrit 39.5 % (36-47); Lymphocytes # 2.5 10^3/uL (0.8-4.8); Lymphocytes % 24.7 %; Mean Corpuscular HGB Conc 32.2 g/dL (30-55); Mean Corpuscular Hemoglobin 28.7 pg (27-33); Mean Corpuscular Volume 89.4 fl (85-98); Mean Platelet Volume 11.4 fL (7.4-10.4); Monocytes # 0.6 10^3/uL (0.2-0.9); Monocytes % 5.7 %; Neutrophils # 7.03 10^3/uL (1.8-7.7); Neutrophils % 68.4 %; Nucleated Red Blood Cells % 0 %; Platelet Count 235 10^3/cmm (157-399); Red Blood Count 4.42 10^6/uL (3.85-5.65); Red Cell Distribution Width 13.8 % (12.1-15.1); White Blood Count 10.26 10^3/uL (3.29-11.43)
[2024-05-02 01:19] LABS: INR 1.06 (0.8-1.2)
[2024-05-02 01:20] LABS: Partial Thromboplastin Time 34.9 SECONDS (23.9-36.7)
[2024-05-02 01:21] LABS: HCG, Serum Qual Negative (Negative)
[2024-05-02 01:28] LABS: Troponin(5th) Baseline < 6 ng/L (0-10)
[2024-05-02] MEDS: morphine 4 mg/mL SDV 1 mL IVP ×2 (01:31→02:46)
[2024-05-02] MEDS: ondansetron 2 mg/ML SDV 2 mL 4 MG IVP (01:31)
[2024-05-02 01:38] LABS: Alanine Aminotransferase 13 U/L (0-33); Albumin Level 4.5 g/dL (3.5-5.2); Alkaline Phosphatase 72 U/L (35-105); Anion Gap 17.3 (5-19); Aspartate Amino Transferase 16 U/L (0-32); Blood Urea Nitrogen 18 mg/dL (6-20); Calcium 9.2 mg/dL (8.5-10.5); Carbon Dioxide 23 mmol/L (22-29); Chloride 104 mmol/L (98-107); Creatinine Clr Calc Pharmacy 140.6699; Globulin 2.3 g/dL (1.3-4.6); Glomerular Filtration Rate 105.6 mL/min (90-130); Glucose 106 mg/dL (65-115); NT Pro B Type Natriuretic Pept 1035 pg/mL (0-125); Osmolality Calculated 292 mOsm/kg (285-295); Potassium 4.3 mmol/L (3.5-5.1); Sodium 140 mmol/L (136-145); Total Bilirubin 0.5 mg/dL (0.15-1.2); Total Protein 6.8 g/dL (6.6-8.7)
[2024-05-02] MEDS: iohexol 350 mg/mL 500 mL Btl (per mL) IV (01:45)
--- NOTE | 2024-05-02 02:14 | W.ED.CHESTPA ---
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 This was following a streptococcal infection. She presents with sudden onset of pain in her chest radiating to her back. She notes of late, she has had an increased number of palpitations. Pain is significant to her chest, with some trouble breathing. She denies fever or cough. Related Data Previous Rx's Medication Instructions Recorded bumetanide 1 mg tablet 1 mg PO DAILY 30 days #30 tabs 10/14/23 carvedilol 3.125 mg tablet 3.125 mg PO BID 30 days #60 tabs 10/14/23 enoxaparin 60 mg/0.6 mL 60 mg (0.6 mL) SUBCUT BID 30 days 10/14/23 subcutaneous syringe #36 mL mycophenolate mofetil 500 mg tablet 500 mg PO QDAY #30 tabs 10/14/23 clindamycin HCl 300 mg capsule 300 mg PO TID 10 days #30 caps 11/06/23 oxycodone-acetaminophen 5 mg-325 1 tab PO Q8H PRN pain, severe #7 01/30/24 mg tablet (Percocet) tabs famotidine 20 mg tablet See Rx Instructions .Route 02/03/24 .COMPLEX #30 tabs hydroxychloroquine 200 mg tablet See Rx Instructions .Route 02/03/24 .COMPLEX #60 tabs potassium chloride 10 mEq See Rx Instructions .Route 02/03/24 capsule,extended release .COMPLEX #30 caps sacubitril 24 mg-valsartan 26 mg See Rx Instructions .Route 02/26/24 tablet (Entresto) .COMPLEX #60 tabs midodrine 5 mg tablet See Rx Instructions .Route 03/18/24 .COMPLEX #30 tabs magnesium citrate (Citrate of 296 ml PO DAILY PRN constipation 05/02/24 Magnesia oral) #296 mL Allergies Allergy/AdvReac Type Severity Reaction Status Date / Time No Known Allergies Allergy Verified 11/12/23 14:53 [facility] ED PFSH: Medical History Lupus History of bicuspid aortic valve Family History Grandmother Chronic kidney disease (CKD) Stroke Grandmother Diabetes Other Lung disease Denies family history of CAD (coronary artery disease) Clotting disorder Dementia Hyperlipidemia Psychiatric illness Suicide Anesthesia complication Bleeding disorder Family history of premature coronary artery disease Cancer Hypertension Social History Smoking and tobacco/nicotine status: never used tobacco/nicotine Alcohol intake: never Substance/Drug Use: never Female Reproductive History: Date of last menstrual period: 04/26/24 Physical Exam Const: COMMON NORMALS: no acute distress GENERAL APPEARANCE: cooperative; not ill appearing and not frail appearing HENMT: COMMON NORMALS: normocephalic, atraumatic and Normal external nose present HEAD & SCALP: normocephalic and atraumatic FACE & SINUS: normal facial exam and face symmetric NOSE: Normal external nose present Eye: COMMON NORMALS: Equal, round and reactive pupils present and EOMs intact bilaterally PUPIL: Yes Equal, round and reactive pupils present Neck/C-Spine: GENERAL: Yes trachea midline Chest: CHEST: Yes Symmetrical chest wall rise Resp: COMMON NORMALS: normal respiratory effort, No retractions, No use of accessory muscles and clear to auscultation bilaterally AUSCULTATION: clear to auscultation bilaterally Cardio: COMMON NORMALS: regular rate and regular rhythm RATE: regular rate RHYTHM: regular rhythm GI: COMMON NORMALS: Normal to inspection, nondistended, normoactive bowel sounds present Extremity: COMMON NORMALS: no pedal edema Neuro: LONNY COMA SCALE: document GCS findings Pana coma scale eye opening: Spontaneous Lonny coma scale verbal response: Orientated Lonny coma scale motor response: Obey commands Lonny coma scale total score: 15 SENSORY EXAM: Yes extremities (intact) Psych: COMMON NORMALS: speech normal SPEECH: Yes normal speech Skin: COMMON NORMALS: no rashes or lesions noted GENERAL SKIN EXAM: no rashes or lesions noted Course Vital Signs: Vital signs: Vital Signs Temperature 98.2 F 05/02/24 00:45 Pulse Rate 68 05/02/24 03:44 Respiratory Rate 16 05/02/24 03:44 Blood Pressure 123/94 05/02/24 03:44 Pulse Oximetry 98 05/02/24 03:44 Oxygen Delivery Me thod Room Air 05/02/24 03:33 MDM - Chest Pain Medical Decision Making Vitals are stable. Laboratory normal, save a mildly elevated BNP. CTA of the chest abdomen pelvis is pending. Delta troponin is 0. She is not . CTA of the chest abdomen pelvis reveals no pulmonary embolus. No infiltrate. No dissection or rupture of the aorta. There is likely a mild ileus. There is a right ovarian cyst. Pain may be coming from the ileus. Results were explained to the patient. She will be given lactulose here, and magnesium citrate for home as a stimulant laxative to try to resolve the ileus. She knows to return for worsening symptoms. Lab Data 05/02/24 00:57 05/02/24 00:57 Radiology Impressions Chest/Abdomen/Pelvis CTA 05/02/24 00:57 IMPRESSION: 1. Air-fluid levels involving minimally distended loops of small bowel. This is a nonspecific finding but can be seen with an ileus. 2. Right ovarian cyst measuring 5.7 cm in size. Laboratory Results WBC 10.26 10^3/uL (3.29-11.43) 05/02/24 00:57 RBC 4.42 10^6/uL (3.85-5.65) 05/02/24 00:57 Hgb 12.70 g/dL (11.27-16.99) 05/02/24 00:57 Hct 39.5 % (36-47) 05/02/24 00:57 MCV 89.4 fl (85-98) 05/02/24 00:57 MCH 28.7 pg (27-33) 05/02/24 00:57 MCHC 32.2 g/dL (30-55) 05/02/24 00:57 RDW 13.8 % (12.1-15.1) 05/02/24 00:57 Plt Count 235 10^3/cmm (157-399) 05/02/24 00:57 MPV 11.4 fL (7.4-10.4) H 05/02/24 00:57 Neut % (Auto) 68.4 % 05/02/24 00:57 Lymph % (Auto) 24.7 % 05/02/24 00:57 [place] % (Auto) 5.7 % 05/02/24 00:57 Eos % (Auto) 0.6 % 05/02/24 00:57 Baso % (Auto) 0.4 % 05/02/24 00:57 Neut # (Auto) 7.03 10^3/uL (1.8-7.7) 05/02/24 00:57 Lymph # (Auto) 2.5 10^3/uL (0.8-4.8) 05/02/24 00:57 [place] # (Auto) 0.6 10^3/uL (0.2-0.9) 05/02/24 00:57 Eos # (Auto) 0.1 10^3/uL (0.0-0.8) 05/02/24 00:57 Baso # (Auto) 0.0 10^3/uL (0.0-0.1) 05/02/24 00:57 Nucleated RBC % (auto) 0 % 05/02/24 00:57 Nucleated RBCs # 0.0 /100WBC 05/02/24 00:57 PT 14.20 SECONDS (12.1-14.9) 05/02/24 00:57 INR 1.06 (0.8-1.2) 05/02/24 00:57 APTT 34.9 SECONDS (23.9-36.7) 05/02/24 00:57 Sodium 140 mmol/L (136-145) 05/02/24 00:57 Potassium 4.3 mmol/L (3.5-5.1) 05/02/24 00:57 Chloride 104 mmol/L (98-107) 05/02/24 00:57 Carbon Dioxide 23 mmol/L (22-29) 05/02/24 00:57 Anion Gap 17.3 (5-19) 05/02/24 00:57 BUN 18 mg/dL (6-20) 05/02/24 00:57 Creatinine 0.7 mg/dL (0.5-0.9) 05/02/24 00:57 GFR Calculation 105.6 mL/min (90-130) 05/02/24 00:57 Glucose 106 mg/dL (65-115) 05/02/24 00:57 Calculated Osmolality 292 mOsm/kg (285-295) 05/02/24 00:57 Calcium 9.2 mg/dL (8.5-10.5) 05/02/24 00:57 Total Bilirubin 0.5 mg/dL (0.15-1.2) 08 00:57 AST 16 U/L (0-32) 05/02/24 00:57 ALT 13 U/L (0-33) 08 00:57 Alkaline Phosphatase 72 U/L (35-105) 08 00:57 Troponin T Baseline < 6 ng/L (0-10) 08 00:57 Troponin T 120 Minute 6.00 ng/L (0-10) 05/02/24 02:37 Delta Troponin T 0.47823 ABS# (0-10) 05/02/24 02:37 NT-Pro-B Natriuret Pep 1035 pg/mL (0-125) H 05/02/24 00:57 Total Protein 6.8 g/dL (6.6-8.7) 05/02/24 00:57 Albumin 4.5 g/dL (3.5-5.2) 08 00:57 Globulin 2.3 g/dL (1.3-4.6) 05/02/24 00:57 HCG, Qual Negative (Negative) 05/02/24 00:57 All radiology interpretation(s) finalized by discharge Discharge Plan Discharge Patient Disposition: Home Clinical Impression: Ileus, Chest pain Condition: Stable Prescriptions: New Citrate of Magnesia Solution 296 ml PO DAILY PRN (Reason: constipation) Qty: 296 0RF No Action bumetanide 1 mg tablet 1 mg PO DAILY 30 Days Qty: 30 5RF carvedilol 3.125 mg tablet 3.125 mg PO BID 30 Days Qty: 60 5RF enoxaparin 60 mg/0.6 mL syringe 60 mg SUBCUT BID 30 Days Qty: 36 3RF mycophenolate mofetil 500 mg tablet 500 mg PO QDAY Qty: 30 3RF clindamycin HCl 300 mg capsule 300 mg PO TID 10 Days Qty: 30 0RF famotidine 20 mg tablet See Rx Instructions .ROUTE .COMPLEX Qty: 30 2RF Dose Instruction: Take 1 tablet by mouth once daily Rx Instructions: Take 1 tablet by mouth once daily potassium chloride 10 mEq capsule, extended release See Rx Instructions .ROUTE .COMPLEX Qty: 30 2RF Dose Instruction: Take 1 capsule by mouth once daily Rx Instructions: Take 1 capsule by mouth once daily hydroxychloroquine 200 mg tablet See Rx Instructions .ROUTE .COMPLEX Qty: 60 2RF Dose Instruction: Take 1 tablet by mouth twice daily Rx Instructions: Take 1 tablet by mouth twice daily Entresto 24-26 mg tablet See Rx Instructions .ROUTE .COMPLEX Qty: 60 0RF Dose Instruction: Take 1 tablet by mouth twice daily Rx Instructions: Take 1 tablet by mouth twice daily midodrine 5 mg tablet See Rx Instructions .ROUTE .COMPLEX Qty: 30 0RF Dose Instruction: Take 1 tablet by mouth once daily Rx Instructions: Take 1 tablet by mouth once daily Percocet 5-325 mg tablet 1 tab PO Q8H PRN (Reason: pain, severe) Qty: 7 0RF Discharge Orders: Discharge ED (Routine); Ordered 05/02/24 Ordered By: Rakesh Barahona Referrals: Mary Steele, [employer] ATTORNEY [Primary Care Provider] - 1-3 days Patient Instructions: Chest Pain (ED), Ileus (ED), Opioid Safety, Pain Management Activity Restrictions/Additional Instructions: Take medication as directed today. You will want to stay near a bathroom. Return for worsening shortness of breath or pain, fever, cough, other concerning symptoms. See your doctor this week. Coding Level of Care Code ED Manager Cafe for Elizabeth Powers
--- NOTE | 2024-05-02 02:33 | ECG_ITS ---
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 Measurements Intervals [place] Rate: 71 P: 56 OR: 172 QRS: 38 QRSD: 106 T: 51 QT: 398 QTc: 433 Interpretive Statements SINUS RHYTHM LEFT ATRIAL ENLARGEMENT [-0.15mV P-WAVE IN V1/V2] POSSIBLE INFERIOR MYOCARDIAL INFARCTION , PROBABLY OLD [30 ms Q WAVE IN II/aVF] Compared to ECG 01/05/2024 00:48:03 No significant changes Electronically Signed On 05-03-2024 7:42:47 CDT by Andrei Hatfield M.D. [id number]
[2024-05-02 03:03] LABS: Troponin 5 2HR Delta 0.00001 ABS# (0-10)
[2024-05-02] MEDS: lactulose oral liq 20 gm/30 mL UDC PO (04:04)
[2024-05-02] MEDS: ketorolac 30 mg/mL INJ IVP (04:04)
== END 2024-05-02 03:46 | disposition home or self-care (01) ==
PROVIDERS: Emergency Provider Emergency Medicine; PCP Nurse Practitioner Family
DX: R07.9 Chest pain, unspecified (principal); K56.7 Ileus, unspecified; M32.9 Systemic lupus erythematosus, unspecified
CPT/HCPCS: 71275; 74174; 80053; 83880; 84484; 84703; 85025; 85610; 85730; 93005; 96374; 96375; 96376; 99285; J1885; J2270; J2405; Q9967

== ENCOUNTER → 2024-05-04 16:38 | Outpatient (BNVA) | payer OTHER, BC, SELFPAY | PROVIDERS: PCP Nurse Practitioner Family; Visit Provider Nurse Practitioner Family | DX: M32.9 Systemic lupus erythematosus, unspecified (principal) | CPT/HCPCS: 85025; 85651; 86038; 86140; 86200 ==

== ENCOUNTER 2024-05-22 15:51 | Emergency (ER) | payer OTHER, BC, SELFPAY ==
--- NOTE | 2024-05-22 15:55 | ECG_ITS ---
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 Measurements Intervals [place] Rate: 75 P: 29 IA: 153 QRS: -10 QRSD: 104 T: 17 QT: 372 QTc: 416 Interpretive Statements SINUS RHYTHM LEFT ATRIAL ENLARGEMENT [-0.15mV P-WAVE IN V1/V2] INFERIOR MYOCARDIAL INFARCTION , PROBABLY OLD [40+ ms Q WAVE AND/OR ST/T ABNORMALITY IN II/aVF] Compared to ECG 05/02/2024 02:33:26 No significant changes Electronically Signed On 05-23-2024 11:11:31 CDT by Andrei Hatfield M.D. [id number]
--- NOTE | 2024-05-22 15:56 | XRR_ITS ---
PROCEDURE INFORMATION: Exam: XR Chest Exam date and time: 05/22/2024 4:20 PM Age: 23 years old Clinical indication: Chest pressure; Patient HX: Chest pain TECHNIQUE: Imaging protocol: Radiologic exam of the chest. Views: 1 view. COMPARISON: CT ang zeyad stack [id number] 05/02/2024 1:43 AM FINDINGS: Lungs: Unremarkable. No consolidation or mass. Pleural spaces: Unremarkable. No pleural effusion. No pneumothorax. Heart/Mediastinum: Unremarkable. No cardiomegaly. Bones/joints: Sternal sutures are noted. XR/XR chest 1V portable [id number] IMPRESSION: No acute findings.
[2024-05-22 16:05] VITALS: BP 115/76; PULSE 88; RESP 20; TEMP 36.8; O2SAT 100; BMI 25.8
[2024-05-22 16:45] LABS: Basophils % 0.3 %; Eosinophils # 0.1 10^3/uL (0.0-0.8); Eosinophils % 0.8 %; Hematocrit 36.7 % (36-47); Lymphocytes # 2.5 10^3/uL (0.8-4.8); Lymphocytes % 27.1 %; Mean Corpuscular HGB Conc 31.9 g/dL (30-55); Mean Corpuscular Hemoglobin 28.7 pg (27-33); Mean Corpuscular Volume 90.2 fl (85-98); Mean Platelet Volume 10.9 fL (7.4-10.4); Monocytes # 0.5 10^3/uL (0.2-0.9); Monocytes % 5.4 %; Neutrophils % 66.1 %; Nucleated Red Blood Cells % 0 %; Platelet Count 261 10^3/cmm (157-399); Red Blood Count 4.07 10^6/uL (3.85-5.65); Red Cell Distribution Width 13.5 % (12.1-15.1); White Blood Count 9.08 10^3/uL (3.29-11.43)
[2024-05-22 16:58] LABS: HCG, Serum Qual Negative (Negative)
[2024-05-22 17:04] LABS: Alanine Aminotransferase 12 U/L (0-33); Albumin Level 4.3 g/dL (3.5-5.2); Alkaline Phosphatase 64 U/L (35-105); Anion Gap 17.6 (5-19); Aspartate Amino Transferase 14 U/L (0-32); Blood Urea Nitrogen 10 mg/dL (6-20); Calcium 9.1 mg/dL (8.5-10.5); Carbon Dioxide 23 mmol/L (22-29); Chloride 105 mmol/L (98-107); Creatinine Clr Calc Pharmacy 172.7014; Globulin 2.6 g/dL (1.3-4.6); Glomerular Filtration Rate 126.2 mL/min (90-130); Glucose 93 mg/dL (65-115); Lipase 33 U/L (13-60); Osmolality Calculated 293 mOsm/kg (285-295); Potassium 3.6 mmol/L (3.5-5.1); Sodium 142 mmol/L (136-145); Total Bilirubin 0.4 mg/dL (0.15-1.2); Total Protein 6.9 g/dL (6.6-8.7); Troponin(5th) Baseline < 6 ng/L (0-10)
--- NOTE | 2024-05-22 17:56 | ECG_ITS ---
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 Measurements Intervals [place] Rate: 68 P: 17 PA: 152 QRS: -20 QRSD: 110 T: 3 QT: 384 QTc: 411 Interpretive Statements SINUS RHYTHM LEFT ATRIAL ENLARGEMENT [-0.15mV P-WAVE IN V1/V2] POSSIBLE LEFT VENTRICULAR HYPERTROPHY [VOLTAGE CRITERIA PLUS LAE OR QRS WIDENING] INFERIOR MYOCARDIAL INFARCTION , PROBABLY OLD [40+ ms Q WAVE AND/OR ST/T ABNORMALITY IN II/aVF] Compared to ECG 05/22/2024 15:55:59 No significant changes Electronically Signed On 05-23-2024 11:12:58 CDT by Andrei Hatfield M.D. [id number]
--- NOTE | 2024-05-22 18:25 | CTR_ITS ---
PROCEDURE INFORMATION: Exam: CTA Chest With Contrast Exam date and time: 05/22/2024 6:36 PM Age: 23 years old Clinical indication: Pain; Shortness of breath; Chest pressure and radiating; Prior surgery; Surgery date: 6+ months; Surgery type: Avr; Patient HX: C/O severe cp radiating posteriorly into back. History of mi. ; Additional info: Chest pain possible pe TECHNIQUE: Imaging protocol: Computed tomographic angiography of the chest with contrast. Exam focused on the arteries. 3D rendering (Not supervised by radiologist): MIP and/or 3D reconstructed images were created by the technologist. Radiation optimization: All CT scans at this facility use at least one of these dose optimization techniques: automated exposure control; mA and/or kV adjustment per patient size (includes targeted exams where dose is matched to clinical indication); or iterative reconstruction. Contrast material: OMNI 350; Contrast volume: 68 ml; Contrast route: INTRAVENOUS (IV); COMPARISON: CT ang ches abdmayco [id number] 05/02/2024 1:43 AM RADIATION DOSE METRICS: Total DLP (mGy-cm): 278.86 FINDINGS: Pulmonary arteries: Normal. No pulmonary emboli. Aorta: There are postoperative changes about the aortic root. Post sternotomy changes are present. Lungs: Unremarkable. No consolidation. No masses. Pleural spaces: Unremarkable. No pneumothorax. No pleural effusion. Heart: Partially visualized leads along the inferior aspect of the heart. Lymph nodes: Unremarkable. No enlarged lymph nodes. Bones/joints: There is pectus excavatum with an elevated Page index of 4.5. Soft tissues: Unremarkable. CT/CT angio chest PE protcl [id number] IMPRESSION: 1. No evidence for pulmonary embolus. 2. Pectus excavatum.
--- NOTE | 2024-05-22 18:27 | W.ED.CHESTPA ---
HPI - Chest Pain General: Chief Complaint: Chest Pain Stated Complaint: CP Time Seen by Provider: 05/22/24 18:16 History of Present Illness: 23-year-old female who comes in with severe right sided chest pain in the right lateral lower chest area. The pain is sharp, stabbing, worse with deep breaths. She states the pain started this morning. Patient has a history of lupus, antiphospholipid syndrome, bicuspid aortic valve with subsequent bioprosthetic aortic valve replacement, previous WI, history of atrial fibrillation. She is chronically anticoagulated with enoxaparin twice daily but states she missed this morning's dose and last night's dose because she was in [place] with her boyfriend. She states she was sick last week with fevers, chills, body aches and a cough. She states she started to feel better until this morning when she started having the pain in her chest. She denies a prior history of DVT or pulmonary emboli but because of her antiphospholipid syndrome, she is chronically anticoagulated. Associated symptoms: Reports dyspnea; Deny diaphoresis, fever(s), nausea or vomiting Related Data Previous Rx's Medication Instructions Recorded bumetanide 1 mg tablet 1 mg PO DAILY 30 days #30 tabs 10/14/23 carvedilol 3.125 mg tablet 3.125 mg PO BID 30 days #60 tabs 10/14/23 mycophenolate mofetil 500 mg tablet 500 mg PO QDAY #30 tabs 10/14/23 oxycodone-acetaminophen 5 mg-325 1 tab PO Q8H PRN pain, severe #7 01/30/24 mg tablet (Percocet) tabs famotidine 20 mg tablet See Rx Instructions .Route 02/03/24 .COMPLEX #30 tabs hydroxychloroquine 200 mg tablet See Rx Instructions .Route 02/03/24 .COMPLEX #60 tabs potassium chloride 10 mEq See Rx Instructions .Route 02/03/24 capsule,extended release .COMPLEX #30 caps sacubitril 24 mg-valsartan 26 mg See Rx Instructions .Route 02/26/24 tablet (Entresto) .COMPLEX #60 tabs valacyclovir 1 gram tablet 1,000 mg PO DAILY 90 days #90 tabs 05/04/24 enoxaparin 60 mg/0.6 mL See Rx Instructions .Route 05/11/24 subcutaneous syringe .COMPLEX #60 mL hydrocodone 5 mg-acetaminophen 325 1 tab PO Q4H PRN pain #14 tabs 05/22/24 mg tablet Allergies Allergy/AdvReac Type Severity Reaction Status Date / Time No Known Allergies Allergy Verified 05/22/24 16:10 Review of Systems Const: Reports: body aches; Denies: fever(s), chills or diaphoresis ENMT: Reports: throat pain and nasal congestion Card: Reports: chest pain and dyspnea on exertion Resp: Reports: dyspnea, non-productive cough and pain on inspiration GI: Denies: nausea, vomiting or diarrhea Musc: Denies: extremity pain or extremity swelling PFS ED PFSH: Medical History (Updated 05/22/24 @ 20:00 by Diane Wood MD) Lupus History of bicuspid aortic valve Family History Grandmother Chronic kidney disease (CKD) Stroke Grandmother Diabetes Other Lung disease Denies family history of CAD (coronary artery disease) Clotting disorder Dementia Hyperlipidemia Psychiatric illness Suicide Anesthesia complication Bleeding disorder Family history of premature coronary artery disease Cancer Hypertension Social History (Updated 05/13/24 @ 09:36 by ALANIS Mills) Smoking and tobacco/nicotine status: current every day tobacco/nicotine user (vape) e-cigarettes E-Cigarette Details: e-cigarette and with nicotine Alcohol intake: never Substance/Drug Use: current Substance/Drug use frequency: Special occassions/opportunity only Female Reproductive History: Date of last menstrual period: 05/18/24 Physical Exam Const: OTHER: Patient appears uncomfortable due to pain HENMT: COMMON NORMALS: normocephalic, atraumatic and moist oral mucous membranes HEAD & SCALP: normocephalic and atraumatic Eye: COMMON NORMALS: Equal, round and reactive pupils present and EOMs intact bilaterally PUPIL: Yes Equal, round and reactive pupils present Neck/C-Spine: COMMON NORMALS: full ROM and supple Chest: OTHER: Chest wall nontender, no bruising noted; previous sternotomy scar Resp: OTHER: Patient is tachypneic, taking shallow rapid breaths, decreased breath sounds in the right lung base Cardio: COMMON NORMALS: regular rate and regular rhythm RATE: regular rate RHYTHM: regular rhythm GI: COMMON NORMALS: Normal to inspection, nondistended, normoactive bowel sounds present, Soft to palpation and non-tender PALPATION: Yes Soft to palpation OTHER: Negative Phillip sign; no CVA tenderness Extremity: NARRATIVE EXTREMITY EXAM: No swelling, deformity, negative Homans, calves are soft and nontender Course Vital Signs: Vital signs: Vital Signs Temperature 98.2 F 05/22/24 16:05 Pulse Rate 86 05/22/24 18:51 Respiratory Rate 18 05/22/24 18:51 Blood Pressure 107/68 05/22/24 18:51 Pulse Oximetry 100 05/22/24 18:51 Oxygen Delivery Me thod Room Air 05/22/24 18:51 MDM - Chest Pain Medical Decision Making 23-year-old female with a history of lupus, antiphospholipid syndrome, previous bioprosthetic aortic valve replacement, history of atrial fibrillation on chronic anticoagulation who presents today with pleuritic right-sided chest pain. The patient did have an upper respiratory type illness 1 week ago with a cough which was nonproductive, associated URI type symptoms, generalized bodyaches which had improved until today when she started having increased pain and increased shortness of breath. She has missed her dose of Lovenox this morning and last night raising the concern for possible pulmonary embolism. Other etiologies could be pleurisy, pneumothorax, pneumonia, aortic dissection. Will start an IV, give her IV Dilaudid for pain. Will obtain labs and plan for CT arteriogram of the chest to rule out pulmonary embolism. Will check serial cardiac enzymes. Will obtain an EKG EG from interpretation shows no acute ischemic changes. The patient's initial troponin is less than 6. Repeat 2-hour troponin 6. No significant change from interpretation. Patient CTA is negative for pulmonary embolism or other acute findings. Likely this patient's pain is pleuritic in nature. She has been given IV Dilaudid for pain in the emergency department with improvement. Do not feel she needs further workup or admission at this time I feel she is stable for discharge home. Have encouraged her to take her Lovenox as soon as she arrives home. I have given her 2 doses of IV Dilaudid here. Have given her a prescription for [place] 5 to take 1 every 4-6 hours as needed for pain, quantity of 14. If instructed her to continue regular medications as prescribed previously. She needs to take her Lovenox as prescribed. Return if her symptoms worsen. Follow-up this week with her primary care provider Medical Records Per old records, the patient's had a previous bioprosthetic aortic valve, status post aortic rupture postoperatively Lab Data 05/22/24 16:35 05/22/24 16:35 Radiology Impressions Chest X-Ray 05/22/24 15:56 IMPRESSION: No acute findings. Chest CTA 05/22/24 18:25 IMPRESSION: 1. No evidence for pulmonary embolus. 2. Pectus excavatum. Laboratory Results WBC 9.08 10^3/uL (3.29-11.43) 05/22/24 16:35 RBC 4.07 10^6/uL (3.85-5.65) 05/22/24 16:35 Hgb 11.70 g/dL (11.27-16.99) 05/22/24 16:35 Hct 36.7 % (36-47) 05/22/24 16:35 MCV 90.2 fl (85-98) 05/22/24 16:35 MCH 28.7 pg (27-33) 05/22/24 16:35 MCHC 31.9 g/dL (30-55) 05/22/24 16:35 RDW 13.5 % (12.1-15.1) 05/22/24 16:35 Plt Count 261 10^3/cmm (157-399) 05/22/24 16:35 MPV 10.9 fL (7.4-10.4) H 05/22/24 16:35 Neut % (Auto) 66.1 % 05/22/24 16:35 Lymph % (Auto) 27.1 % 05/22/24 16:35 [place] % (Auto) 5.4 % 05/22/24 16:35 Eos % (Auto) 0.8 % 05/22/24 16:35 Baso % (Auto) 0.3 % 05/22/24 16:35 Neut # (Auto) 6.00 10^3/uL (1.8-7.7) 05/22/24 16:35 Lymph # (Auto) 2.5 10^3/uL (0.8-4.8) 05/22/24 16:35 [place] # (Auto) 0.5 10^3/uL (0.2-0.9) 05/22/24 16:35 Eos # (Auto) 0.1 10^3/uL (0.0-0.8) 05/22/24 16:35 Baso # (Auto) 0.0 10^3/uL (0.0-0.1) 05/22/24 16:35 Nucleated RBC % (auto) 0 % 05/22/24 16:35 Nucleated RBCs # 0.0 /100WBC 05/22/24 16:35 Sodium 142 mmol/L (136-145) 05/22/24 16:35 Potassium 3.6 mmol/L (3.5-5.1) 05/22/24 16:35 Chloride 105 mmol/L (98-107) 05/22/24 16:35 Carbon Dioxide 23 mmol/L (22-29) 05/22/24 16:35 Anion Gap 17.6 (5-19) 05/22/24 16:35 BUN 10 mg/dL (6-20) 05/22/24 16:35 Creatinine 0.6 mg/dL (0.5-0.9) 05/22/24 16:35 GFR Calculation 126.2 mL/min (90-130) 05/22/24 16:35 Glucose 93 mg/dL (65-115) 05/22/24 16:35 Calculated Osmolality 293 mOsm/kg (285-295) 05/22/24 16:35 Calcium 9.1 mg/dL (8.5-10.5) 05/22/24 16:35 Total Bilirubin 0.4 mg/dL (0.15-1.2) 05/22/24 16:35 AST 14 U/L (0-32) 05/22/24 16:35 ALT 12 U/L (0-33) 05/22/24 16:35 Alkaline Phosphatase 64 U/L (35-105) 05/22/24 16:35 Troponin T Baseline < 6 ng/L (0-10) 05/22/24 16:35 Troponin T 120 Minute 6.00 ng/L (0-10) 05/22/24 18:52 Delta Troponin T 0.72965 ABS# (0-10) 05/22/24 18:52 Total Protein 6.9 g/dL (6.6-8.7) 05/22/24 16:35 Albumin 4.3 g/dL (3.5-5.2) 05/22/24 16:35 Globulin 2.6 g/dL (1.3-4.6) 05/22/24 16:35 Lipase 33 U/L (13-60) 05/22/24 16:35 HCG, Qual Negative (Negative) 05/22/24 16:35 All radiology interpretation(s) finalized by discharge ED provider radiology interpretation(s): Chest x-ray per my interpretation shows no infiltrate or effusion or acute finding EKG Data EKG 1: I personally reviewed and interpreted this EKG as follows: EKG interpretation date: 05/22/24 EKG interpretation time: 18:15 Interpretation: Normal sinus rhythm, T wave inversion with associated Q waves in leads III and aVF as well as V2. No acute ischemic changes per my interpretation Discharge Plan Discharge Patient Disposition: Home Clinical Impression: Pleurisy Condition: Stable Prescriptions: New hydrocodone-acetaminophen 5-325 mg tablet 1 tab PO Q4H PRN (Reason: pain) Qty: 14 0RF No Action bumetanide 1 mg tablet 1 mg PO DAILY 30 Days Qty: 30 5RF carvedilol 3.125 mg tablet 3.125 mg PO BID 30 Days Qty: 60 5RF mycophenolate mofetil 500 mg tablet 500 mg PO QDAY Qty: 30 3RF valacyclovir 1 gram tablet 1,000 mg PO DAILY 90 Days Qty: 90 3RF famotidine 20 mg tablet See Rx Instructions .ROUTE .COMPLEX Qty: 30 2RF Dose Instruction: Take 1 tablet by mouth once daily Rx Instructions: Take 1 tablet by mouth once daily potassium chloride 10 mEq capsule, extended release See Rx Instructions .ROUTE .COMPLEX Qty: 30 2RF Dose Instruction: Take 1 capsule by mouth once daily Rx Instructions: Take 1 capsule by mouth once daily hydroxychloroquine 200 mg tablet See Rx Instructions .ROUTE .COMPLEX Qty: 60 2RF Dose Instruction: Take 1 tablet by mouth twice daily Rx Instructions: Take 1 tablet by mouth twice daily Entresto 24-26 mg tablet See Rx Instructions .ROUTE .COMPLEX Qty: 60 0RF Dose Instruction: Take 1 tablet by mouth twice daily Rx Instructions: Take 1 tablet by mouth twice daily enoxaparin 60 mg/0.6 mL syringe See Rx Instructions .ROUTE .COMPLEX Qty: 60 0RF Dose Instruction: INJECT 1 SYRINGE 60MG (0.6ML) SUBCUTANEOUSLY TWICE DAILY FOR 30 DAYS Rx Instructions: INJECT 1 SYRINGE 60MG (0.6ML) SUBCUTANEOUSLY TWICE DAILY FOR 30 DAYS Percocet 5-325 mg tablet 1 tab PO Q8H PRN (Reason: pain, severe) Qty: 7 0RF Discharge Orders: Discharge ED (Routine); Ordered 05/22/24 Ordered By: Diane Wood Referrals: Mary Steele SPRINKLER FITTER HELPER [Primary Care Provider] - Discharge Diet: Advance as tolerated Discharge Activity: Resume usual activity Patient Instructions: Opioid Safety, Pain Management, Pleurisy Activity Restrictions/Additional Instructions: Take your Lovenox when you get home tonight and continue it as you are supposed to. Continue your other regular medications. You can [place] every 4-6 hours as needed for pain. Return if you have increased pain, increased shortness of breath or worsening symptoms. Follow-up this week with your primary care provider Coding Level of Care Code ED Cryptologic Supervisor for Elizabeth Powers
[2024-05-22] MEDS: iohexol 350 mg/mL 500 mL Btl (per mL) IV (18:39)
[2024-05-22] MEDS: HYDROmorphone 1 mg/mL INJ 1 mL 0.5 MG IVP ×2 (18:46→20:56)
[2024-05-22] MEDS: ondansetron 2 mg/ML SDV 2 mL 4 MG IVP (18:46)
[2024-05-22 18:51] VITALS: BP 107/68; PULSE 86; RESP 18; O2SAT 100
[2024-05-22 19:18] LABS: Troponin 5 2HR Delta 0.00001 ABS# (0-10)
[2024-05-22 20:55] VITALS: BP 106/78; PULSE 78; RESP 14; O2SAT 100
[2024-05-22 20:56] VITALS: RESP 14
[2024-05-22 20:59] VITALS: BP 106/78; PULSE 78; RESP 14; TEMP 36.8; O2SAT 100
== END 2024-05-22 21:00 | disposition home or self-care (01) ==
PROVIDERS: Emergency Medicine; Emergency Provider Emergency Medicine; PCP Nurse Practitioner Family
DX: R09.1 Pleurisy (principal); F17.290 Nicotine dependence, other tobacco product, uncomplicated; M32.9 Systemic lupus erythematosus, unspecified
CPT/HCPCS: 36415; 71045; 71275; 80053; 83690; 84484; 84703; 85025; 93005; 96374; 96375; 96376; 99285; J1170; J2405

== ENCOUNTER 2024-06-22 07:51 | Outpatient (CLI) | payer OTHER, BC, SELFPAY ==
--- NOTE | 2024-06-22 08:15 | USCV_ITS ---
Gerson Shrestha Age: 23 Gender: F : 2000 Exam Date: 06/22/2024 08:05 Ordering Phys: Andrei Hatfield M.D ([email or web address]) Technologist: Exam Location: [facility] [place] Indication: ao bio pros BP: 120 / 67 HR: 832 Rhythm: Sinus Technical Quality: Adequate MEASUREMENTS (Male / Female) Normal Values 2D ECHO LV Diastolic Diameter PLAX 4.7 cm 4.2 - 5.9 / 3.9 - 5.3 cm IVS Diastolic Thickness 1.2 cm 0.6 - 1.0 / 0.6 - 0.9 cm IVS Systolic Thickness 1.4 cm LVPW Diastolic Thickness 1.0 cm 0.6 - 1.0 / 0.6 - 0.9 cm LVPW Systolic Thickness 1.4 cm LVOT Diameter 2.0 cm LV Ejection Fraction 2D Teich 58.8 % LV Ejection Fraction MOD 4C 65.2 % LV Ejection Fraction MOD 2C 64.1 % LV Ejection Fraction 2C AL 66.4 % LA Diameter 3.2 cm RA Systolic Volume 4C AL 38.0 ml RA Systolic Volume 4C MOD 37.4 ml Aorta at Sinotubular Diameter 2.3 cm M-MODE LA Ao Ratio MM 1.2 AV Cusp Separation MM 2.2 cm DOPPLER AV Peak Velocity 105.8 cm/s LVOT Peak Velocity 97.0 cm/s AV Area Cont Eq vti 3.4 cm squared AV Area Cont Eq pk 2.9 cm squared MV Area PHT 4.7 cm squared Mitral E to A Ratio 1.8 TV Peak Velocity 179.5 cm/s TR Peak Velocity 254.0 cm/s TR Peak Gradient 25.8 mmHg Right Atrial Pressure 3.0 mmHg Pulmonary Artery Systolic Pressu 28.8 mmHg PV Peak Velocity 101.0 cm/s FINDINGS Left Ventricle Normal left ventricular cavity size. Normal left ventricular systolic function. Left ventricular ejection fraction is estimated at 55%. Normal diastolic function. Right Ventricle The right ventricle is normal in size and function. Right Atrium The right atrium is normal in size. Left Atrium The left atrium is normal in size. Mitral Valve Moderately thickened mitral valve. No mitral valve stenosis. Severe mitral valve regurgitation. Thickened mitral valve. No mitral valve prolapse. Aortic Valve Structurally normal aortic valve without significant sclerosis or stenosis. There is no aortic regurgitation. Tricuspid Valve Structurally normal tricuspid valve without significant stenosis or regurgitation. Pulmonary artery systolic pressure is normal. Pulmonic Valve Structurally normal pulmonic valve without significant stenosis. There is no pulmonic regurgitation. Pericardium Normal pericardium without effusion. Aorta Normal ascending aorta dimension. IVC The inferior vena cava appears normal. CONCLUSIONS Normal left ventricular cavity size. Normal left ventricular systolic function. Left ventricular ejection fraction is estimated at 55%. Normal diastolic function. Moderately thickened mitral valve. No mitral valve stenosis. Severe mitral valve regurgitation. Thickened mitral valve. No mitral valve prolapse. There is no pericardial effusion. Right atrial pressure is around 10 mm of mercury. Phylicia Russ MD (Electronically Signed) Final Date: 25 June 2024 13:43 S
== END 2024-06-22 07:52 | disposition home or self-care (01) ==
LOC: RAD 07:51
PROVIDERS: PCP Nurse Practitioner Family; Visit Provider Internal Medicine
DX: I34.0 Nonrheumatic mitral (valve) insufficiency (principal); Z95.3 Presence of xenogenic heart valve; I34.81 Nonrheumatic mitral (valve) annulus calcification
CPT/HCPCS: 93306

== ENCOUNTER → 2024-07-25 07:49 | Outpatient (BNVA) | payer OTHER, BC, SELFPAY | PROVIDERS: PCP Nurse Practitioner Family; Visit Provider Obstetrics & Gynecology | DX: N83.291 Other ovarian cyst, right side (principal); N83.202 Unspecified ovarian cyst, left side | CPT/HCPCS: 76830 ==

== ENCOUNTER → 2024-07-29 10:10 | Outpatient (BNVA) | payer OTHER, BC, SELFPAY | PROVIDERS: PCP Nurse Practitioner Family; Visit Provider Obstetrics & Gynecology | DX: Z30.9 Encounter for contraceptive management, unspecified (principal) | CPT/HCPCS: 81025 ==

== ENCOUNTER 2024-08-16 03:48 | Emergency (ER) | payer OTHER, BC, SELFPAY ==
[2024-08-16] VITALS (9 sets, daily range): BP systolic 101–120; BP diastolic 64–84; PULSE 65–100; RESP 15–26; TEMP 36.5; O2SAT 98–100; BMI 25.1
--- NOTE | 2024-08-16 03:56 | XRR_ITS ---
PROCEDURE INFORMATION: Exam: XR Chest Exam date and time: 08/16/2024 5:15 AM Age: 24 years old Clinical indication: Other: Weakness; Prior surgery; Surgery date: 6+ months; Surgery type: Cabg TECHNIQUE: Imaging protocol: Radiologic exam of the chest. Views: 1 view. COMPARISON: CT angio chest PE protcl [id number] 05/22/2024 6:36 PM FINDINGS: Lungs: Unremarkable. No consolidation. Pleural spaces: Unremarkable. No pleural effusion. No pneumothorax. Heart/Mediastinum: Heart size is normal. Sternal wires are present from prior cardiac surgery. Bones/joints: Unremarkable. XR/XR chest 1V portable [id number] IMPRESSION: 1. No acute cardiopulmonary findings.
--- NOTE | 2024-08-16 04:01 | ECG_ITS ---
[facility] Date: 2024[facility]16 Pat Name: Gerson Shrestha Department: Room: Gender: Female Manager Wound: : 2000 Requested By: Flori Casillas Order Number: [id number] Kelsie MD: Rudy Westfall M.D. Measurements Intervals [place] Rate: 72 P: 14 MI: 173 QRS: -5 QRSD: 118 T: 20 QT: 391 QTc: 429 Interpretive Statements SINUS RHYTHM LEFT ATRIAL ENLARGEMENT [-0.15mV P-WAVE IN V1/V2] POSSIBLE LEFT VENTRICULAR HYPERTROPHY [VOLTAGE CRITERIA PLUS LAE OR QRS WIDENING] INFERIOR MYOCARDIAL INFARCTION , PROBABLY OLD [40+ ms Q WAVE AND/OR ST/T ABNORMALITY IN II/aVF] Compared to ECG 05/22/2024 18:15:32 No significant changes Electronically Signed On 08-17-2024 19:15:01 OPERATOR GROUND [employer]ED [employer] DEFENCE by Rudy Westfall M.D. [id number]
--- NOTE | 2024-08-16 04:01 | ED_ITS ---
HPI - Dizziness 2 General: Chief Complaint: Dizziness Stated Complaint: stood up dizzy almost passed out fell Time Seen by Provider: 08/16/24 03:51 History of Present Illness: HPI Narrative: 24-year-old female past medical history of antiphospholipid syndrome, bicuspid aortic valve, history of endocarditis, periaortic abscess and aortic rupture s/p surgery who presents to the emergency room from work on the [facility] floor after she had a near syncopal episode. She says she was sitting and stood up and felt lightheaded. She still feels somewhat lightheaded and dizzy. No chest pain. No altered mental status. No focal motor deficit. No fever. No cough. No abdominal pain. She does have some nausea. She also tells me she has not taken any of her medications for the last 2 days. Related Data Previous Rx's Medication Instructions Recorded famotidine 20 mg tablet See Rx Instructions .Route 02/03/24 .COMPLEX #30 tabs hydroxychloroquine 200 mg tablet See Rx Instructions .Route 02/03/24 .COMPLEX #60 tabs potassium chloride 10 mEq See Rx Instructions .Route 02/03/24 capsule,extended release .COMPLEX #30 caps valacyclovir 1 gram tablet 1,000 mg PO DAILY 90 days #90 tabs 05/04/24 sacubitril 24 mg-valsartan 26 mg See Rx Instructions .Route 05/24/24 tablet (Entresto) .COMPLEX #60 tabs mycophenolate mofetil 500 mg tablet See Rx Instructions .Route 06/09/24 .COMPLEX #30 tabs carvedilol 3.125 mg tablet See Rx Instructions .Route 06/28/24 .COMPLEX #60 tabs enoxaparin 60 mg/0.6 mL See Rx Instructions .Route 06/28/24 subcutaneous syringe .COMPLEX #60 mL diazepam 5 mg tablet (Valium) 5 mg PO ONCE PRN anxiety #1 tab 07/29/24 Allergies Allergy/AdvReac Type Severity Reaction Status Date / Time No Known Allergies Allergy Verified 08/16/24 03:57 Review of Systems 2 Narrative: Constitutional symptoms: Negative except as documented in HPI. Skin symptoms: Negative except as documented in HPI. Eye symptoms: Negative except as documented in HPI. ENMT symptoms: Negative except as documented in HPI. Respiratory symptoms: Negative except as documented in HPI. Cardiovascular symptoms: Negative except as documented in HPI. Gastrointestinal symptoms: Negative except as documented in HPI. Genitourinary symptoms: Negative except as documented in HPI. Musculoskeletal symptoms: Negative except as documented in HPI. Neurologic symptoms: Negative except as documented in HPI. Psychiatric symptoms: Negative except as documented in HPI. Endocrine symptoms: Negative except as documented in HPI. PFS ED 2 PFSH: Medical History (Updated 08/16/24 @ 05:33 by Flori Bowman MD) Lupus History of bicuspid aortic valve Surgical History (Updated 06/30/24 @ 09:11 by Sujit Durham MD) History of tonsillectomy and adenoidectomy Family History Grandmother Stroke Grandmother Diabetes Denies family history of Colon cancer Ovarian cancer Prostate cancer Heart disease Breast cancer Hypertension Uterine cancer Thyroid disease Social History Smoking and tobacco/nicotine status: current every day tobacco/nicotine user (vape) Female Reproductive History: Date of last menstrual period: 07/13/24 Physical Exam 2 Narrative: EXAM NARRATIVE: General: Alert, no acute distress. Skin: Warm, dry. Head: Normocephalic, atraumatic. Neck: Supple, trachea midline. Eye: Extraocular movements are intact. Ears, nose, mouth and throat: mucosa moist. Cardiovascular: Regular, Normal peripheral perfusion. Patient does have a systolic ejection murmur Respiratory: Lungs are clear to auscultation, respirations are non-labored, breath sounds are equal, Symmetrical chest wall expansion. Gastrointestinal: Soft, Nontender, Non distended Musculoskeletal: Normal ROM, no deformity. Neurological: Alert and oriented, No focal neurological deficit observed. Psychiatric: Cooperative, appropriate mood & affect. Course 2 Vital Signs: Vital signs: Vital Signs Temperature 97.7 F 08/16/24 03:52 Pulse Rate 76 08/16/24 04:25 Respiratory Rate 26 H 08/16/24 04:25 Blood Pressure 115/74 08/16/24 04:25 Pulse Oximetry 100 08/16/24 04:25 Oxygen Delivery Me thod Room Air 08/16/24 04:25 MDM - Dizziness Medical Decision Making Medical decision making: Differential diagnosis including but not limited to and based on the above HPI, review of systems and physical exam in this patient with near syncope: Vasovagal, orthostatics hypotension, cardiac dysrhythmia, myocardial infarction, infection and hypotension, Orders placed to evaluate differential diagnosis based on the above differential, HPI and physical exam EKG: Time 4:01 AM. Rate 72. Normal sinus rhythm, nonspecific ST-T changes, no ectopy, normal WI & QRS intervals, This was reviewed and interpreted by myself the ER physician at 4:05 AM. Lab Review: Laboratory results were reviewed and interpreted by myself the emergency room physician. No leukocytosis. No anemia. BUN is a little bit elevated. Troponin is negative. Urinalysis is negative for infection. Her urine does look concentrated. Flu and COVID are negative. Chest x-ray: Sternotomy wires are in place. No acute process. No infiltrate. No pneumothorax. This was reviewed and interpreted by myself the emergency room physician. I also reviewed the radiology report. I reviewed the patient's medical record. Reexamination: Patient is having a little bit of a headache. She is given medications for this. No chest pain still. No focal motor deficits. Assessment and plan: Near syncope Dehydration Headache Medical noncompliance ?Zofran, Toradol and Norflex in the emergency room. Encouraged hydration and to take her medications as instructed - Discharged home - Discussed findings and plan with patient. Answered any questions. - All laboratory values were reviewed and interpreted personally by myself, the ER physician - All imaging was reviewed and interpreted personally by myself, the ER physician. - Evaluation and treatment of this problem were appropriate in the emergency setting Lab Data 08/16/24 04:00 08/16/24 04:00 Laboratory Results WBC 8.05 10^3/uL (3.29-11.43) 08/16/24 04:00 RBC 4.34 10^6/uL (3.85-5.65) 08/16/24 04:00 Hgb 12.20 g/dL (11.27-16.99) 08/16/24 04:00 Hct 37.7 % (36-47) 08/16/24 04:00 MCV 86.9 fl (85-98) 08/16/24 04:00 MCH 28.1 pg (27-33) 08/16/24 04:00 MCHC 32.4 g/dL (30-55) 08/16/24 04:00 RDW 12.6 % (12.1-15.1) 08/16/24 04:00 Plt Count 303 10^3/cmm (157-399) 08/16/24 04:00 MPV 11.0 fL (7.4-10.4) H 08/16/24 04:00 Neut % (Auto) 63.8 % 08/16/24 04:00 Lymph % (Auto) 29.4 % 08/16/24 04:00 [place] % (Auto) 5.1 % 08/16/24 04:00 Eos % (Auto) 1.0 % 08/16/24 04:00 Baso % (Auto) 0.5 % 08/16/24 04:00 Neut # (Auto) 5.13 10^3/uL (1.8-7.7) 08/16/24 04:00 Lymph # (Auto) 2.4 10^3/uL (0.8-4.8) 08/16/24 04:00 [place] # (Auto) 0.4 10^3/uL (0.2-0.9) 08/16/24 04:00 Eos # (Auto) 0.1 10^3/uL (0.0-0.8) 08/16/24 04:00 Baso # (Auto) 0.0 10^3/uL (0.0-0.1) 08/16/24 04:00 Nucleated RBC % (auto) 0 % 08/16/24 04:00 Nucleated RBCs # 0.0 /100WBC 08/16/24 04:00 Sodium 138 mmol/L (136-145) 08/16/24 04:00 Potassium 4.6 mmol/L (3.5-5.1) 08/16/24 04:00 Chloride 103 mmol/L (98-107) 08/16/24 04:00 Carbon Dioxide 24 mmol/L (22-29) 08/16/24 04:00 Anion Gap 15.6 (5-19) 08/16/24 04:00 BUN 21 mg/dL (6-20) H 08/16/24 04:00 Creatinine 0.7 mg/dL (0.5-0.9) 08/16/24 04:00 GFR Calculation 104.6 mL/min (90-130) 08/16/24 04:00 Glucose 103 mg/dL (65-115) 08/16/24 04:00 Calculated Osmolality 289 mOsm/kg (285-295) 08/16/24 04:00 Calcium 9.5 mg/dL (8.5-10.5) 08/16/24 04:00 Total Bilirubin 0.5 mg/dL (0.15-1.2) 08/16/24 04:00 AST 16 U/L (0-32) 08/16/24 04:00 ALT 11 U/L (0-33) 08/16/24 04:00 Alkaline Phosphatase 71 U/L (35-105) 08/16/24 04:00 Troponin T Baseline < 6 ng/L (0-10) 08/16/24 04:00 Total Protein 6.3 g/dL (6.6-8.7) L 08/16/24 04:00 Albumin 4.3 g/dL (3.5-5.2) 08/16/24 04:00 Globulin 2.0 g/dL (1.3-4.6) 08/16/24 04:00 HCG, Qual Negative (Negative) 08/16/24 04:00 Urine Color Yellow (Yellow) 08/16/24 04:07 Urine Appearance Clear (CLEAR) 08/16/24 04:07 Urine pH 6.5 (5-7) 08/16/24 04:07 Ur Specific [place] 1.032 (1.005-1.030) H 08/16/24 04:07 Urine Protein 1+ (Negative) A 08/16/24 04:07 Urine Glucose (UA) Negative (Normal) 08/16/24 04:07 Urine Ketones Trace (Negative) 08/16/24 04:07 Urine Blood Negative (Negative) 08/16/24 04:07 Urine Nitrate Negative (Negative) 08/16/24 04:07 Urine Bilirubin Negative (Negative) 08/16/24 04:07 Urine Urobilinogen 1.0 mg/dL (Negative) 08/16/24 04:07 Ur Leukocyte Esterase Negative (Negative) 08/16/24 04:07 Urine RBC 0-2 /hpf (0-2) 08/16/24 04:07 Urine WBC 0-5 /hpf (0-5) 08/16/24 04:07 Ur Squamous Epith Cells 0-5 /hpf (0-5) 08/16/24 04:07 Amorphous Sediment Not Reportable 08/16/24 04:07 Urine Bacteria Trace /hpf (NONE) 08/16/24 04:07 Hyaline Casts 0.40 /lpf 08/16/24 04:07 Coronavirus (PCR) Negative (Negative) 08/16/24 04:07 Influenza A (PCR) Negative (Negative) 08/16/24 04:07 Influenza Type B (PCR) Negative (Negative) 08/16/24 04:07 RSV (PCR) Negative (Negative) 08/16/24 04:07 XR interpretation done by ED provider, pending radiology final review Discharge Plan Discharge Patient Disposition: Home Clinical Impression: Near syncope, Dehydration, Headache Condition: Stable Prescriptions: No Action valacyclovir 1 gram tablet 1,000 mg PO DAILY 90 Days Qty: 90 3RF diazepam [Valium] 5 mg tablet 5 mg PO ONCE PRN (Reason: anxiety) Qty: 1 0RF famotidine 20 mg tablet See Rx Instructions .ROUTE .COMPLEX Qty: 30 2RF Dose Instruction: Take 1 tablet by mouth once daily Rx Instructions: Take 1 tablet by mouth once daily potassium chloride 10 mEq capsule, extended release See Rx Instructions .ROUTE .COMPLEX Qty: 30 2RF Dose Instruction: Take 1 capsule by mouth once daily Rx Instructions: Take 1 capsule by mouth once daily hydroxychloroquine 200 mg tablet See Rx Instructions .ROUTE .COMPLEX Qty: 60 2RF Dose Instruction: Take 1 tablet by mouth twice daily Rx Instructions: Take 1 tablet by mouth twice daily Entresto 24-26 mg tablet See Rx Instructions .ROUTE .COMPLEX Qty: 60 2RF Dose Instruction: TAKE 1 TABLET BY MOUTH TWICE DAILY - NEEDS APPT Rx Instructions: TAKE 1 TABLET BY MOUTH TWICE DAILY - NEEDS APPT mycophenolate mofetil 500 mg tablet See Rx Instructions .ROUTE .COMPLEX Qty: 30 11RF Dose Instruction: Take 1 tablet by mouth once daily Rx Instructions: Take 1 tablet by mouth once daily carvedilol 3.125 mg tablet See Rx Instructions .ROUTE .COMPLEX Qty: 60 0RF Dose Instruction: Take 1 tablet by mouth twice daily Rx Instructions: Take 1 tablet by mouth twice daily enoxaparin 60 mg/0.6 mL syringe See Rx Instructions .ROUTE .COMPLEX Qty: 60 0RF Dose Instruction: INJECT 1 SYRINGE 60MG (0.6ML) SUBCUTANEOUSLY TWICE DAILY FOR 30 DAYS Rx Instructions: INJECT 1 SYRINGE 60MG (0.6ML) SUBCUTANEOUSLY TWICE DAILY FOR 30 DAYS Discharge Orders: Discharge ED (Routine); Ordered 08/16/24 Ordered By: Flori Bowman Referrals: Mary Steele, [employer] [Primary Care Provider] - Discharge Diet: Usual diet Discharge Activity: Increase activity as tolerated Patient Instructions: Near Syncope (ED), Opioid Safety, Pain Management Activity Restrictions/Additional Instructions: Thank you for choosing [facility] for your healthcare needs today. Please realize this is an emergency room and that we are providing you with a medical screening exam and this may not be complete and all inclusive of all the testing and or work up that you may need to determine your ailment or severity of your illness. You have been screened and evaluated and felt safe for discharge. Health conditions do change or evolve sometimes and as such it is important that you follow up with your Primary Doctor to be re checked, 3-5 days is a general good time frame for follow up. You are always welcome to return to the ED for re assessment if your symptoms are worsening or you have new concerns Coding Level of Care Code ED Mortgage Servicing Specialist for Elizabeth Powers
[2024-08-16 04:13] LABS: Basophils % 0.5 %; Eosinophils # 0.1 10^3/uL (0.0-0.8); Hematocrit 37.7 % (36-47); Lymphocytes # 2.4 10^3/uL (0.8-4.8); Lymphocytes % 29.4 %; Mean Corpuscular HGB Conc 32.4 g/dL (30-55); Mean Corpuscular Hemoglobin 28.1 pg (27-33); Mean Corpuscular Volume 86.9 fl (85-98); Monocytes # 0.4 10^3/uL (0.2-0.9); Monocytes % 5.1 %; Neutrophils # 5.13 10^3/uL (1.8-7.7); Neutrophils % 63.8 %; Nucleated Red Blood Cells % 0 %; Platelet Count 303 10^3/cmm (157-399); Red Blood Count 4.34 10^6/uL (3.85-5.65); Red Cell Distribution Width 12.6 % (12.1-15.1); White Blood Count 8.05 10^3/uL (3.29-11.43)
[2024-08-16 04:22] LABS: Bilirubin Urine Negative (Negative); Blood Urine Negative (Negative); Glucose Urine UA Negative (Normal); Ketones Urine Trace (Negative); Leukocyte Esterase Urine Negative (Negative); Nitrate Urine Negative (Negative); Protein Urine 1+ (Negative); Urine Appearance Clear (CLEAR); Urine Color Yellow (Yellow); pH Urine 6.5 (5-7)
[2024-08-16 04:26] LABS: Bacteria Urine Trace /hpf; RBC Urine 0-2 /hpf (0-2); Squamous Epithelial Cell Urine 0-5 /hpf (0-5); WBC Urine 0-5 /hpf (0-5)
[2024-08-16 04:39] LABS: Troponin(5th) Baseline < 6 ng/L (0-10)
[2024-08-16 04:40] LABS: HCG, Serum Qual Negative (Negative)
[2024-08-16 04:42] LABS: Alanine Aminotransferase 11 U/L (0-33); Albumin Level 4.3 g/dL (3.5-5.2); Alkaline Phosphatase 71 U/L (35-105); Anion Gap 15.6 (5-19); Aspartate Amino Transferase 16 U/L (0-32); Blood Urea Nitrogen 21 mg/dL (6-20); Calcium 9.5 mg/dL (8.5-10.5); Carbon Dioxide 24 mmol/L (22-29); Chloride 103 mmol/L (98-107); Creatinine Clr Calc Pharmacy 144.9805; Glomerular Filtration Rate 104.6 mL/min (90-130); Glucose 103 mg/dL (65-115); Osmolality Calculated 289 mOsm/kg (285-295); Potassium 4.6 mmol/L (3.5-5.1); Sodium 138 mmol/L (136-145); Total Bilirubin 0.5 mg/dL (0.15-1.2); Total Protein 6.3 g/dL (6.6-8.7)
[2024-08-16 04:53] LABS: Specific Gravity, Urine 1.032 (1.005-1.030)
[2024-08-16 04:57] LABS: Covid PCR NEGATIVE (Negative); Influenza A NEGATIVE (Negative); Influenza B NEGATIVE (Negative); Respiratory Syncytial Virus Ce NEGATIVE (Negative)
[2024-08-16] MEDS: ketorolac 30 mg/mL INJ IVP (05:18)
[2024-08-16] MEDS: orphenadrine 30 mg/mL Inj 2 mL 60 MG IVP (05:18)
[2024-08-16] MEDS: ondansetron 4 MG Tablet 8 MG PO (05:18)
[2024-08-16] MEDS: sodium chloride 0.9% 1,000 ML 999 ML IV (05:43)
[2024-08-16] MEDS: meclizine 25 mg tablet 50 MG PO (05:44)
== END 2024-08-16 07:32 | disposition home or self-care (01) ==
PROVIDERS: Emergency Provider Emergency Medicine; PCP Nurse Practitioner Family
DX: R55 Syncope and collapse (principal); E86.0 Dehydration; R51.9 Headache, unspecified; Z11.52 Encounter for screening for COVID-19; F17.290 Nicotine dependence, other tobacco product, uncomplicated
CPT/HCPCS: 0241U; 71045; 80053; 81001; 84484; 84703; 85025; 87040; 93005; 96361; 96374; 96375; 99285; J1885; J2360; J7030; J8597; Q0162

== ENCOUNTER → 2024-08-30 07:52 | Outpatient (BNVA) | payer OTHER, BC, SELFPAY | PROVIDERS: PCP Nurse Practitioner Family; Visit Provider Obstetrics & Gynecology | DX: N83.291 Other ovarian cyst, right side (principal) | CPT/HCPCS: 76830 ==

== ENCOUNTER 2024-09-04 19:36 | Emergency (ER) | payer OTHER, BC, SELFPAY ==
[2024-09-04 20:20] VITALS: BP 111/60; PULSE 83; RESP 16; TEMP 36.7; O2SAT 98
[2024-09-04 21:43] LABS: Basophils % 0.4 %; Eosinophils # 0.1 10^3/uL (0.0-0.8); Eosinophils % 0.6 %; Hematocrit 38.2 % (36-47); Lymphocytes # 1.6 10^3/uL (0.8-4.8); Lymphocytes % 15.6 %; Mean Corpuscular HGB Conc 32.5 g/dL (30-55); Mean Corpuscular Hemoglobin 28.1 pg (27-33); Mean Corpuscular Volume 86.4 fl (85-98); Mean Platelet Volume 11.8 fL (7.4-10.4); Monocytes # 0.6 10^3/uL (0.2-0.9); Neutrophils # 8.07 10^3/uL (1.8-7.7); Nucleated Red Blood Cells % 0 %; Platelet Count 223 10^3/cmm (157-399); Red Blood Count 4.42 10^6/uL (3.85-5.65); Red Cell Distribution Width 13.2 % (12.1-15.1); White Blood Count 10.48 10^3/uL (3.29-11.43)
[2024-09-04 21:46] LABS: HCG, Serum Qual Negative (Negative)
[2024-09-04 21:57] LABS: Alanine Aminotransferase 70 U/L (0-33); Albumin Level 4.3 g/dL (3.5-5.2); Alkaline Phosphatase 107 U/L (35-105); Anion Gap 15.1 (5-19); Aspartate Amino Transferase 151 U/L (0-32); Blood Urea Nitrogen 14 mg/dL (6-20); Calcium 9.3 mg/dL (8.5-10.5); Carbon Dioxide 23 mmol/L (22-29); Chloride 105 mmol/L (98-107); Creatinine Clr Calc Pharmacy 144.9805; Globulin 2.6 g/dL (1.3-4.6); Glomerular Filtration Rate 104.6 mL/min (90-130); Glucose 96 mg/dL (65-115); Lipase 41 U/L (13-60); Osmolality Calculated 288 mOsm/kg (285-295); Potassium 4.1 mmol/L (3.5-5.1); Sodium 139 mmol/L (136-145); Total Bilirubin 1.2 mg/dL (0.15-1.2); Total Protein 6.9 g/dL (6.6-8.7)
[2024-09-04 23:05] LABS: Bilirubin Urine Negative (Negative); Blood Urine Negative (Negative); Glucose Urine UA Negative (Normal); Ketones Urine Trace (Negative); Leukocyte Esterase Urine Negative (Negative); Nitrate Urine Negative (Negative); Protein Urine 1+ (Negative); Urine Appearance Clear (CLEAR); Urine Color Dark Yellow (Yellow); pH Urine 5.5 (5-7)
[2024-09-04 23:08] LABS: Bacteria Urine None Seen /hpf; Hyaline Casts Urine 2.05 /lpf; Squamous Epithelial Cell Urine 0-5 /hpf (0-5); WBC Urine 0-5 /hpf (0-5)
[2024-09-04 23:30] LABS: Specific Gravity, Urine 1.034 (1.005-1.030)
[2024-09-05 01:16] VITALS: BP 109/78; PULSE 66; RESP 16; O2SAT 99
--- NOTE | 2024-09-05 01:21 | USR_ITS ---
PROCEDURE INFORMATION: Exam: US Abdomen, Limited; Right Upper Quadrant Exam date and time: 09/05/2024 3:42 AM Age: 24 years old Clinical indication: Abdominal pain; Localized; Right upper quadrant (ruq); Additional info: Ruq pain TECHNIQUE: Imaging protocol: Real time ultrasound of the abdomen with image documentation. Limited exam focused on the right upper quadrant. COMPARISON: US pelvis lmt w transvag 01/30/2024 3:24 PM FINDINGS: Liver: Normal. No masses. Gallbladder: Biliary sludge. Gallbladder wall measures 3 mm. No gallstones. There is no gallbladder wall thickening. Biliary ducts: Normal. No stones. No dilation. Pancreas: Visualized pancreas is unremarkable. Right kidney: Normal. No mass. No hydronephrosis. Aorta: Unremarkable. Inferior vena cava: Unremarkable. Portal venous: Unremarkable. US/US gall bladder [id number] IMPRESSION: No acute abnormality.
[2024-09-05] MEDS: ondansetron 2 mg/ML SDV 2 mL 4 MG IVP ×2 (03:36→04:41)
[2024-09-05] MEDS: morphine 4 mg/mL SDV 1 mL IVP (03:41)
[2024-09-05] MEDS: ketorolac 30 mg/mL INJ IVP (03:41)
[2024-09-05 03:47] VITALS: BP 111/67; PULSE 68; O2SAT 98
--- NOTE | 2024-09-05 04:01 | ED_ITS ---
HPI - Abdominal Pain 2 General: Chief Complaint: Abdominal Pain Stated Complaint: abd pain into back n/v Time Seen by Provider: 09/05/24 01:10 History of Present Illness: 24-year-old female, with a history of ao rtic root rupture from strep infection in the past. She presents with right upper quadrant pain. She has nausea as well. Seem to improve over the course of the day after heating pad for little while, but after dinner, pain returned. No fever. She vomited in the waiting room. No diarrhea. No other sick contacts. Related Data Home Medications Medication Instructions Recorded Confirmed carvedilol 3.125 mg tablet 3.125 mg PO BID 08/16/24 08/31/24 famotidine 20 mg tablet 20 mg PO DAILY 08/16/24 08/31/24 hydroxychloroquine 200 mg tablet 200 mg PO BID 08/16/24 08/16/24 mycophenolate mofetil 500 mg tablet 500 mg PO DAILY 08/16/24 08/31/24 potassium chloride 10 mEq 10 meq PO DAILY 08/16/24 08/31/24 capsule,extended release sacubitril 24 mg-valsartan 26 mg 1 tab PO BID 08/16/24 08/31/24 tablet (Entresto) Previous Rx's Medication Instructions Recorded valacyclovir 1 gram tablet 1,000 mg PO DAILY 90 days #90 tabs 05/04/24 enoxaparin 60 mg/0.6 mL See Rx Instructions .Route 06/28/24 subcutaneous syringe .COMPLEX #60 mL bumetanide 1 mg tablet 0.5 mg (1/2 x 1 mg) PO DAILY #30 08/31/24 tabs ondansetron 4 mg disintegrating 4 mg PO Q6H PRN nausea and 09/05/24 tablet vomiting #14 tabs oxycodone-acetaminophen 7.5 mg-325 1 tab PO Q6H PRN pain #10 tabs 09/05/24 mg tablet (Percocet) Allergies Allergy/AdvReac Type Severity Reaction Status Date / Time No Known Allergies Allergy Verified 09/04/24 20:27 [facility] ED 2 PFSH: Medical History (Updated 09/05/24 @ 04:12 by Rakehs Barahona DO) Lupus History of bicuspid aortic valve Surgical History (Updated 06/30/24 @ 09:11 by Sujit Durham MD) History of tonsillectomy and adenoidectomy Family History Grandmother Stroke Grandmother Diabetes Denies family history of Colon cancer Ovarian cancer Prostate cancer Heart disease Breast cancer Hypertension Uterine cancer Thyroid disease Social History Smoking and tobacco/nicotine status: current every day tobacco/nicotine user (vape) Physical Exam 2 Const: COMMON NORMALS: no acute distress GENERAL APPEARANCE: cooperative; not ill appearing and not frail appearing HENMT: COMMON NORMALS: normocephalic, atraumatic and Normal external nose present HEAD & SCALP: normocephalic and atraumatic FACE & SINUS: normal facial exam and face symmetric NOSE: Normal external nose present Eye: COMMON NORMALS: Equal, round and reactive pupils present and EOMs intact bilaterally PUPIL: Yes Equal, round and reactive pupils present Neck/C-Spine: GENERAL: Yes trachea midline Chest: CHEST: Yes Symmetrical chest wall rise Resp: COMMON NORMALS: normal respiratory effort, No retractions, No use of accessory muscles and clear to auscultation bilaterally AUSCULTATION: clear to auscultation bilaterally Cardio: COMMON NORMALS: regular rate and regular rhythm RATE: regular rate RHYTHM: regular rhythm GI: COMMON NORMALS: Normal to inspection, nondistended, normoactive bowel sounds present and Soft to palpation PALPATION: Yes Soft to palpation, Yes Tenderness to palpation present (GI) Details: RUQ and Yes Guarding due to palpation present (GI) Extremity: COMMON NORMALS: no pedal edema Neuro: LONNY COMA SCALE: document GCS findings Lonny coma scale eye opening: Spontaneous Lonny coma scale verbal response: Orientated [place] coma scale motor response: Obey commands Lonny coma scale total score: 15 S ENSORY EXAM: Yes extremities (intact) Psych: COMMON NORMALS: speech normal SPEECH: Yes normal speech Skin: COMMON NORMALS: no rashes or lesions noted GENERAL SKIN EXAM: no rashes or lesions noted Course 2 Vital Signs: Vital signs: Vital Signs Temperature 98.1 F 09/04/24 20:20 Pulse Rate 73 09/05/24 05:11 Respiratory Rate 16 09/05/24 05:11 Blood Pressure 99/71 09/05/24 05:11 Pulse Oximetry 97 09/05/24 05:11 Oxygen Delivery Me thod Room Air 09/05/24 04:45 MDM - Abdominal Pain Medical Decision Making Vitals are normal. She is afebrile. Pain improved after medication. White blood cell count is normal. CRP is 3. However, liver enzymes mildly elevated at 151 and 70. Bilirubin is normal at 1.2. Urinalysis is negative. She has very few red blood cells, but is on her period. Right upper quadrant ultrasound reveals some sludge in the gallbladder. There is no gallbladder wall thickening or dilatation of the common bile duct. Pain improved. This is not her first episode. Had a HIDA scan in [place] showing sludge and decreased function. Will refer to surgery as an outpt. return for worsening symptoms. symptom managment on the short term . Lab Data 09/04/24 21:19 09/04/24 21:19 Labs/Radiology: Radiology Impressions Gallbladder Ultrasound 09/05/24 01:21 IMPRESSION: No acute abnormality. Laboratory Results WBC 10.48 10^3/uL (3.29-11.43) 09/04/24 21:19 RBC 4.42 10^6/uL (3.85-5.65) 09/04/24 21:19 Hgb 12.40 g/dL (11.27-16.99) 09/04/24 21:19 Hct 38.2 % (36-47) 09/04/24 21:19 MCV 86.4 fl (85-98) 09/04/24 21:19 MCH 28.1 pg (27-33) 09/04/24 21:19 MCHC 32.5 g/dL (30-55) 09/04/24 21:19 RDW 13.2 % (12.1-15.1) 09/04/24 21:19 Plt Count 223 10^3/cmm (157-399) 09/04/24 21:19 MPV 11.8 fL (7.4-10.4) H 09/04/24 21:19 Neut % (Auto) 77.0 % 09/04/24 21:19 Lymph % (Auto) 15.6 % 09/04/24 21:19 [place] % (Auto) 6.0 % 09/04/24 21:19 Eos % (Auto) 0.6 % 09/04/24 21:19 Baso % (Auto) 0.4 % 09/04/24 21:19 Neut # (Auto) 8.07 10^3/uL (1.8-7.7) H 09/04/24 21:19 Lymph # (Auto) 1.6 10^3/uL (0.8-4.8) 09/04/24 21:19 [place] # (Auto) 0.6 10^3/uL (0.2-0.9) 09/04/24 21:19 Eos # (Auto) 0.1 10^3/uL (0.0-0.8) 09/04/24 21:19 Baso # (Auto) 0.0 10^3/uL (0.0-0.1) 09/04/24 21:19 Nucleated RBC % (auto) 0 % 09/04/24 21:19 Nucleated RBCs # 0.0 /100WBC 09/04/24 21:19 Sodium 139 mmol/L (136-145) 09/04/24 21:19 Potassium 4.1 mmol/L (3.5-5.1) 09/04/24 21:19 Chloride 105 mmol/L (98-107) 09/04/24 21:19 Carbon Dioxide 23 mmol/L (22-29) 09/04/24 21:19 Anion Gap 15.1 (5-19) 09/04/24 21:19 BUN 14 mg/dL (6-20) 09/04/24 21:19 Creatinine 0.7 mg/dL (0.5-0.9) 09/04/24 21:19 GFR Calculation 104.6 mL/min (90-130) 09/04/24 21:19 Glucose 96 mg/dL (65-115) 09/04/24 21:19 Calculated Osmolality 288 mOsm/kg (285-295) 09/04/24 21:19 Calcium 9.3 mg/dL (8.5-10.5) 09/04/24 21:19 Total Bilirubin 1.2 mg/dL (0.15-1.2) 09/04/24 21:19 AST 151 U/L (0-32) H 09/04/24 21:19 ALT 70 U/L (0-33) H 09/04/24 21:19 Alkaline Phosphatase 107 U/L (35-105) H 12/15/24 21:19 C-Reactive Protein 3.0 mg/L (0.0-4.9) 09/04/24 21: Total Protein 6.9 g/dL (6.6-8.7) 09/04/24 21: Albumin 4.3 g/dL (3.5-5.2) 09/04/24 21: Globulin 2.6 g/dL (1.3-4.6) 09/04/24 21: Lipase 41 U/L (13-60) 09/04/24 21: HCG, Qual Negative (Negative) 09/04/24 21:19 Urine Color Dark yellow (Yellow) A 09/04/24 21:00 Urine Appearance Clear (CLEAR) 09/04/24 21: Urine pH 5.5 (5-7) 09/04/24 21: Ur Specific [place] 1.034 (1.005-1.030) H 09/04/24 21:00 Urine Protein 1+ (Negative) A 09/04/24 21:00 Urine Glucose (UA) Negative (Normal) 09/04/24 21:00 Urine Ketones Trace (Negative) 09/04/24 21:00 Urine Blood Negative (Negative) 09/04/24 21:00 Urine Nitrate Negative (Negative) 09/04/24 21: Urine Bilirubin Negative (Negative) 09/04/24 21:00 Urine Urobilinogen 1.0 mg/dL (Negative) 09/04/24 21:00 Ur Leukocyte Esterase Negative (Negative) 09/04/24 21:00 Urine RBC 3-5 /hpf (0-2) 09/04/24 21:00 Urine WBC 0-5 /hpf (0-5) 09/04/24 21:00 Ur Squamous Epith Cells 0-5 /hpf (0-5) 09/04/24 21:00 Amorphous Sediment Not Reportable 09/04/24 21:00 Urine Bacteria None seen /hpf (NONE) 09/04/24 21:00 Hyaline Casts 2.05 /lpf 09/04/24 21:00 All radiology interpretation(s) finalized by discharge Discharge Plan Discharge Patient Disposition: Home Clinical Impression: Biliary colic Condition: Stable Prescriptions: New oxycodone-acetaminophen [Percocet] 7.5-325 mg tablet 1 tab PO Q6H PRN (Reason: pain) Qty: 10 0RF ondansetron 4 mg tablet,disintegrating 4 mg PO Q6H PRN (Reason: nausea and vomiting) Qty: 14 0RF No Action valacyclovir 1 gram tablet 1,000 mg PO DAILY 90 Days Qty: 90 3RF bumetanide 1 mg tablet 0.5 mg PO DAILY Qty: 30 0RF enoxaparin 60 mg/0.6 mL syringe See Rx Instructions .ROUTE .COMPLEX Qty: 60 0RF Dose Instruction: INJECT 1 SYRINGE 60MG (0.6ML) SUBCUTANEOUSLY TWICE DAILY FOR 30 DAYS Rx Instructions: INJECT 1 SYRINGE 60MG (0.6ML) SUBCUTANEOUSLY TWICE DAILY FOR 30 DAYS potassium chloride 10 mEq capsule, extended release 10 meq PO DAILY carvedilol 3.125 mg tablet 3.125 mg PO BID mycophenolate mofetil 500 mg tablet 500 mg PO DAILY famotidine 20 mg tablet 20 mg PO DAILY hydroxychloroquine 200 mg tablet 200 mg PO BID Entresto 24-26 mg tablet 1 tab PO BID Discharge Orders: Discharge ED (Routine); Ordered 09/05/24 Ordered By: Rakesh Barahona Referrals: Bernabe Arcos MD [Physician] - 1-3 days Discharge Diet: Clear Liquid Patient Instructions: Biliary Colic (ED), Abdominal Pain (ED), Opioid Safety, Pain Management Activity Restrictions/Additional Instructions: Return for vomiting liquids or medications, fever greater than 100, worsening pain despite treatment, other concerning symptoms. Call the surgery clinic at the number listed above for a follow-up appointment. Tonight you are seen here with biliary colic. Stand Alone Forms: Work/School Release Coding Level of Care Code ED Embroidery Cutter for Elizabeth Powers
[2024-09-05 04:45] VITALS: BP 96/67; PULSE 64; RESP 16; O2SAT 100; O2SAT 99
[2024-09-05] MEDS: HYDROmorphone 1 mg/mL INJ 1 mL IVP (04:45)
[2024-09-05 05:11] VITALS: BP 99/71; PULSE 73; RESP 16; O2SAT 97
== END 2024-09-05 05:07 | disposition home or self-care (01) ==
PROVIDERS: Emergency Medicine; Emergency Provider Emergency Medicine
DX: K80.50 Calculus of bile duct without cholangitis or cholecystitis without obstruction (principal); F17.290 Nicotine dependence, other tobacco product, uncomplicated
CPT/HCPCS: 36415; 76705; 80053; 81001; 83690; 84703; 85025; 86140; 96374; 96375; 96376; 99284; J1171; J1885; J2270; J2405

== ENCOUNTER 2024-09-23 10:56 | Outpatient (CLI) | payer OTHER, BC, SELFPAY ==
--- NOTE | 2024-09-23 11:03 | USCV_ITS ---
Gerson Shrestha Age: 24 Gender: F : 2000 Exam Date: 09/23/2024 11:55 Ordering Phys: Andrei Hatfield M.D ([email or web address]) Technologist: Kayden Ingram Exam Location: [facility] Indication: mitral regurg BP: / HR: Rhythm: Sinus Technical Quality: Adequate MEASUREMENTS (Male / Female) Normal Values Medications Per anesthesia team Complications None Proc. Components After anesthesia team sedated patient, we proceeded with advancing SHAUN probe. FINDINGS Left Ventricle Left ventricular systolic function is normal with EF of 55-60%. No regional wall motion abnormalities. Right Ventricle Normal in size and function Right Atrium Normal in size Left Atrium Normal in size LA Appendage No thrombus seen IA Septum Grossly normal Mitral Valve Restricted motion of posterior mitral valve leaflet. Severe posteriorly directed eccenteric mitral regurgitation. Aortic Valve Bioprosthetic aortic valve is well seated and appears normal. Tricuspid Valve Structurally normal tricuspid valve. Pulmonic Valve Grossly normal Pericardium Normal Aorta Appears normal CONCLUSIONS LV systolic function is normal with EF of 55-60% No left atrial appendage thrombus seen. Restricted motion of posterior mitral valve leaflet. Severe posteriorly directed eccenteric mitral regurgitation. Bioprosthetic aortic valve is well seated and appears normal. Andrei Hatfield MD (Electronically Signed) Final Date: 24 September 2024 14:38 S
[2024-09-23 11:17] VITALS: BP 113/78; PULSE 78; RESP 17; TEMP 36.7; O2SAT 98; BMI 25.8
[2024-09-23 11:28] LABS: OR HCG Qualitative Urine Negative (Negative)
[2024-09-23] MEDS: sodium chloride 0.9% 500 ML 15 ML IV (11:31)
--- NOTE | 2024-09-23 11:48 | P.ANESASSM_ITS ---
Pre-Anesthetic Assessment Height/Weight: Height 1.78 m Weight 81.647 kg Temp Pulse Resp BP Pulse Ox O2 Del Method 98.1 F 78 17 113/78 98 Room Air 09/23/24 11:17 09/23/24 11:17 09/23/24 11:17 09/23/24 11:17 09/23/24 11:17 09/23/24 11:17 Operation Date: 09/23/24 12:00 Proposed Procedures p SHAUN(Not Applicable) - Clarissa Sarkar anesthetic complications: None Was Beta Richard taken within 24 hours: N/A Was Clonidine taken within 24 hours: N/A Last intake: Intake Last Liquid Date 09/22/24 Last Liquid Time 23:30 Last Solid Date 09/22/24 Last Solid Time 23:30 Social No alcohol and No tobacco Exam alert, oriented x 3, clear to auscultation bilaterally and regular rate & rhythm Airway Mallampati: Class I Dentition: full CV/HEM MVR, AVR Able to achieve > 4 METS, 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 and completes all 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 tasks without difficulty GI Gastroesophageal Reflux Disease [facility] Lupus, antiphospholipid syndrome Anesthetic Plan ASA status: 4 Anesthesia: MAC Risk of > 500 ml blood loss (7ml/kg in children): No Medications/Allergies Home Medications Medication Instructions Recorded Confirmed Last Taken Type valacyclovir 1 gram tablet 1,000 mg PO DAILY 90 days #90 tabs 05/04/24 09/23/24 09/18/24 Rx carvedilol 3.125 mg tablet 3.125 mg PO BID 08/16/24 09/23/24 09/23/24 History famotidine 20 mg tablet 20 mg PO DAILY 08/16/24 09/23/24 09/18/24 History hydroxychloroquine 200 mg tablet 400 mg PO DAILY 08/16/24 09/23/24 09/23/24 History mycophenolate mofetil 500 mg tablet 500 mg PO DAILY 08/16/24 09/23/24 09/18/24 History potassium chloride 10 mEq 10 meq PO DAILY 08/16/24 09/23/24 09/23/24 History capsule,extended release sacubitril 24 mg-valsartan 26 mg 1 tab PO BID 08/16/24 09/23/24 09/19/24 History tablet (Entresto) ondansetron 4 mg disintegrating 4 mg PO Q6H PRN nausea and 09/05/24 09/23/24 Unknown Rx tablet vomiting #14 tabs oxycodone-acetaminophen 7.5 mg-325 1 tab PO Q6H PRN pain #10 tabs 09/05/24 09/23/24 09/19/24 Rx mg tablet (Percocet) bumetanide 1 mg tablet 1 mg PO DAILY 09/19/24 09/23/24 09/18/24 History enoxaparin 60 mg/0.6 mL 60 mg SUBCUT BID 09/19/24 09/23/24 09/19/24 History subcutaneous syringe (Lovenox) Allergies Allergy/AdvReac Type Severity Reaction Status Date / Time No Known Allergies Allergy Verified 09/19/24 10:22 Current Medications Generic Name Dose Route Start Last Admin Trade Name Freq PRN Reason Stop Dose Admin Sodium Chloride 500 mls @ 15 mls/hr 09/23/24 11:03 09/23/24 11:31 Sodium Chloride 0.9% IV 09/24/24 11:02 15 mls/hr .Q24H PRN Administration COLONOSCOPY FLUIDS PFSH Anesthesia Medical History Lupus History of bicuspid aortic valve Surgical History History of tonsillectomy and adenoidectomy Family History Grandmother Stroke Grandmother Diabetes Denies family history of Colon cancer Ovarian cancer Prostate cancer Heart disease Breast cancer Hypertension Uterine cancer Thyroid disease Social History Smoking and tobacco/nicotine status: current every day tobacco/nicotine user (vape) Data Anesthesia Cardiac Studies: Echocardiogram 06/22/24 Cardiac Event Monitor 05/11/24
--- NOTE | 2024-09-23 11:55 | W.PM.OPSUD ---
Surgery/Procedure H&P Update DATE OF PROCEDURE: September 23, 2024 DATE H&P PERFORMED: 08/31/24 H&P UPDATE INFORMATION: I have reviewed H&P completed within last 30 days, I have examined patient prior to procedure and No changes to prior documentation PREOP DIAGNOSIS: Mitral regurgitation PRIMARY INDICATION FOR PROCEDURE: Mitral regurgitation PLANNED PROCEDURE: Operation Date: 09/23/24 12:00 Proposed Procedures p SHAUN(Not Applicable) - Andrei Hatfield M.D Anesthesia team available for the procedure
--- NOTE | 2024-09-23 12:26 | PM.PROC ---
Procedure Note: Date of procedure: 09/23/24 Pre-procedure diagnosis: Mitral regurgitation Post-procedure diagnosis: other (Severe eccenteric mitral regurgitation/Restricted motion of posterior mitral valve leaflet) Procedure: Transesopheageal echocardiogram: After anesthesia team sedated patient, we proceeded with advancing SHAUN probe. Patient has severe posteriorly directed mitral regurgitation. Posterior mitral valve leaflet has restricted motion. Performing Provider: Andrei Hatfield Estimated blood loss (mL): 0 Complications: None Condition: stable Disposition: same day (Same day discharge) Coding Level of Care Code Acute Code for Elizabeth Powers
[2024-09-23 12:28] VITALS: BP 96/57; PULSE 81; RESP 14; TEMP 36.4; O2SAT 98
== END 2024-09-23 13:02 | disposition home or self-care (01) ==
PROVIDERS: Anesthesiology; Visit Provider Internal Medicine
PROC: (CPT 93312; principal; 2024-09-23 12:00)
DX: I34.0 Nonrheumatic mitral (valve) insufficiency (principal); Z95.3 Presence of xenogenic heart valve; Z87.74 Personal history of (corrected) congenital malformations of heart and circulatory system; K21.9 Gastro-esophageal reflux disease without esophagitis; F17.290 Nicotine dependence, other tobacco product, uncomplicated; D68.61 Antiphospholipid syndrome; I38 Endocarditis, valve unspecified; Z98.890 Other specified postprocedural states; M32.9 Systemic lupus erythematosus, unspecified
CPT/HCPCS: 81025; 93312; 93320; 93325; J2250; J2704; J7040

== ENCOUNTER → 2024-12-01 15:09 | Outpatient (BNVA) | payer OTHER, SELFPAY | PROVIDERS: PCP Clinical Nurse Specialist Adult Health; Visit Provider Clinical Nurse Specialist Adult Health | DX: I34.0 Nonrheumatic mitral (valve) insufficiency (principal) | CPT/HCPCS: 80053; 85025 ==

== ENCOUNTER 2024-12-09 05:48 | Outpatient (CLI) | payer OTHER, SELFPAY ==
--- NOTE | 2024-12-09 06:00 | XACV_ITS ---
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 Was referred for repair/replacement. Surgery team has requested cardiac catheterization prior to decision about surgery. * No disease noted in the Left Main, Left Anterior Descending, Circumflex coronary arteries. [place] RCA is not found. SVG to RCA is patent.. * RCA is not found. SVG to RCA is patent without significant disease. * Coronary angiography shows right dominance. Conclusions 1. No disease noted in the Left Main, Left Anterior Descending, Circumflex coronary arteries. [place] RCA is not found. SVG to RCA is patent.. 2. Patient has prior CABG. 3. Normal left ventricular systolic function. Ejection fraction of 55%. Recommendations * Follow-up with CT surgery team. Interventional RX Recommendation: other cardiac therapy w/o CABG/PCI Diagnostic RX Recommendation: other cardiac therapy w/o CABG/PCI Ventriculography Ejection Fraction: 55.0 % Pressures Phase:Rest AO : 117 / 89 ( 103 ) @ 9:24:00 AM 109 / 79 ( 92 ) @ 9:36:00 AM 111 / 84 ( 97 ) @ 9:39:00 AM 99 / 69 ( 84 ) @ 9:51:00 AM 99 / 68 ( 84 ) @ 9:51:00 AM LV : 112 / -9 / 16 @ 9:50:00 AM 111 / -9 / 14 @ 9:50:00 AM 112 / -9 / 15 @ 9:51:00 AM Valves Phase:DefaultPhase AV : 13.0 @ 9:00:27 AM AV Mean Gradient: 10.0 @ 9:00:27 AM Clinical Evaluation EBL: 5mL-10mL Procedural Details Procedure Consent Obtained. Admit Source: Out Patient. Pre-Procedure Time Out. Identified patient by full name and date of as verbalized by the patient/guarantor. Does the consent match the physician's order: Yes. Accurate & Complete Informed Consent: Yes. Inpatient/Outpatient History & Physical on Chart: Yes. If H&P is completed, is and addenduem needed: No; If yes, is the addendum complete: N/A. Visualize and Verify Site with Patient/Guarantor: N/A. Relevant Radiology Images available: N/A. The risks, benefits, and alternatives of sedation and/or procedure were discussed by physician. The patient agrees to continue. Procedure started. [facility] Clinical Fraility Score: 3: Managing Well. Talent Development Manager Indications: Valvular Disease. Chest Pain Symptom Assessment: Typical Angina Symptoms. Correct patient, site and procedure confirmed by cath team. Current diagnosis: Mitral valve Regurgitation, Pre-operative work up. PERRLA. Strong, equal hand design painter bilaterally. Lungs clear x 5 lobes. IV Site on Arrival: 20 gauge in the right anticubital. IV Fluids: 0.9% NaCl at KVO. 0 mL infused prior to wetlands conservation laborer. Pre Procedural Pulses: bilateral radial was Doppled. Pre Procedural Pulses: bilateral posterior tibial was 1+. Pre Procedural Pulses: bilateral dorsalis pedis was 2+. Oxygen started at 2liters/min via nasal canula. right radial was prepped with chloroprep then draped in the usual sterile fashion. right groin was prepped with chloroprep then draped in the usual sterile fashion. Baseline sample Acquired. HR: 65 BPM. Physician notified. Physician arrived. Physician scrubbed in. Immediate Pre-Procedure Time Out. Correct Patient: Yes; Correct Procedure: Yes; Correct Site: Yes; Correct Patient Position: Yes; Correct Supplies: Yes; Dried Flammable Prep: Yes; Blood Products Available: No;. Ultrasound obtained to assist with arterial access. Lidocaine 1% infiltrated to the right groin. Arterial access obtained with micropuncture set. Lidocaine 1% infiltrated to the right groin. A 5 qatari JL4 catheter in over standard wire. Multiple views taken of left coronary artery. Catheter removed over the exchange wire. A 5 qatari JR4 catheter in over wire. Catheter removed over the exchange wire. A 5 qatari MPA1 catheter in over wire. SVG's to RCA visualized and patent. Catheter removed over the exchange wire. A 5 qatari Angled Pig catheter in over wire. Aortic arch arteriogram performed in VAL @ 10 ml/sec for a total of 30 mL. Catheter removed over the exchange wire. A 5 qatari AL1 catheter in over wire. Catheter removed over the exchange wire. A 5 qatari 3DRC catheter in over wire. Catheter removed over the exchange wire. A 5 qatari Angled Pig catheter in over wire. EDP Sample taken: LV 112/-10,16; HR: 64 BPM; SpO2: 100%. LV gram performed in ELIZABETH @ 10 mL/second for a total of 30 mL. EDP Sample taken: LV 111/-10,14; HR: 66 BPM; SpO2: 100%. Pullback taken: LV 112/-10,15; AO 99/69(84); Mean: 10mmHg, Peak to Peak: 13mmHg, SEP: 17sec/min; HR: 62 BPM; SpO2: 99%. Catheter removed over the exchange wire. A Right femoral angiogram was performed to determine safe placement of closure device. Lidocaine 1% infiltrated to the right groin. A Mynx was successful obtaining hemostatsis at the Right Femoral artery insertion site. LOT # [id number] EXP [id number]. PERRLA. Strong, equal hand design painter bilaterally. No VTE prophylaxis required. Medication's Wasted: Nitro = 50 mg. Medication's Wasted: Heparin = 1000 unit. Medication's Wasted: Other = Fentanyl 50mcg, Versed 1 mg. Total IV fluids: 100 mL. Post-op diagnosis: Patent left coronary arteries, patent SVG to RCA graft. Complications: None. Estimated blood loss: 5mL-10mL. Responsiveness - Normal response to verbal stimuli; alert and oriented, PERRLA. Airway - Unaffected, no intervention required; spontaneous ventilation. Circulation: W/N/L, pulses unchanged. Nausea/Vomiting: No. Procedure completed. Patient transferred by bed to 1st floor. Vital chart was stopped. Access Site Site: Right Femoral artery Sheath Size: 6 Fr Hemostasis Method: Mynx Hemostasis Success: Successful Procedure Medications Start: 8:03 AM Stop: 8:03 AM Medication: Versed Amount: 1 mg Route: I.V. Start: 8:03 AM Stop: 8:03 AM Medication: Fentanyl Amount: 25 mcg Route: I.V. Start: 8:09 AM Stop: 8:09 AM Medication: Versed Amount: 1 mg Route: I.V. Start: 8:15 AM Stop: 8:15 AM Medication: Fentanyl Amount: 25 mcg Route: I.V. Start: 8:17 AM Stop: 8:17 AM Medication: Fentanyl Amount: 25 mcg Route: I.V. Start: 8:20 AM Stop: 8:20 AM Medication: Versed Amount: 1 mg Route: I.V. Start: 8:22 AM Stop: 8:22 AM Medication: Fentanyl Amount: 25 mcg Route: I.V. Start: 8:28 AM Stop: 8:28 AM Medication: Versed Amount: 1 mg Route: I.V. Start: 8:42 AM Stop: 8:42 AM Medication: Versed Amount: 1 mg Route: I.V. Start: 8:42 AM Stop: 8:42 AM Medication: Fentanyl Amount: 25 mcg Route: I.V. Start: 8:53 AM Stop: 8:53 AM Medication: Fentanyl Amount: 25 mcg Route: I.V. I, the attending physician, have reviewed and verified all procedure medications. Yes, all medications given per verbal order History/Risk Factors Hypertension: No Dyslipidemia: No Peripheral Arterial Disease (PAD): No Myocardial Infarction (SC): No Obesity: No Renal Disease: No Tobacco Use: Current/Recent(w/in 1 year) Prior Interventions PCI: No CABG: Yes Valve Surgery: Yes Report Signatures Finalized by Andrei Hatfield MD on 12/19/2024 11:39 AM
[2024-12-09] MEDS: aspirin 325 mg Tablet PO (06:10)
[2024-12-09] MEDS: diphenhydrAMINE 50 mg Capsule PO (06:10)
[2024-12-09 06:17] VITALS: BP 127/87; PULSE 71; RESP 16; TEMP 36.8; O2SAT 98; BMI 25.8
[2024-12-09 07:54] LABS: OR HCG Qualitative Urine Negative (Negative)
--- NOTE | 2024-12-09 07:59 | W.PM.OPSFHP ---
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 Plan is for repair/replacement. Surgery team has requested cardiac catheterization prior to cardiothoracic surgery. Medications/Allergies* Home Medications ?Medication ?Instructions ?Recorded ?Confirmed ?Type hydroxychloroquine 200 mg tablet 400 mg PO DAILY 08/16/24 12/08/24 History mycophenolate mofetil 500 mg tablet 500 mg PO DAILY 08/16/24 12/08/24 History Allergies/Adverse Reactions Allergy/AdvReac Type Severity Reaction Status Date / Time No Known Allergies Allergy Verified 12/09/24 06:29 Current Medications: Generic Name Dose Route Start Last Admin Trade Name Freq PRN Reason Stop Dose Admin Sodium Chloride 1,000 mls @ 50 mls/hr 12/09/24 06:00 12/09/24 06:16 Sodium Chloride 0.9% IV 12/10/24 01:59 Not Given .Q20H ONE Pertinent History/Comorbid Conditions* Medical History (Updated 12/01/24 @ 21:34 by Ortiz Berger NP) Lupus Mitral regurgitation severe Hx of streptococcal septicemia Abscess of aortic root hx of abscess aortic root Acid reflux no current sympotms. Heart failure Herpes Dysfunctional gallbladder Ovarian cyst History of bicuspid aortic valve Libman Sacks endocarditis Surgical History (Updated 12/01/24 @ 21:32 by Ortiz Berger NP) S/P aortic valve replacement with bioprosthetic valve S/P CABG (coronary artery bypass graft) november 2022 History of tonsillectomy and adenoidectomy Family History (Updated 12/01/24 @ 14:36 by Ortiz Berger NP) Lupus (systemic lupus erythematosus) Diabetes Grandmother Breast cancer Stroke Grandmother Denies family history of Colon cancer Ovarian cancer Prostate cancer Heart disease Hypertension Uterine cancer Thyroid disease Social History Smoking and tobacco/nicotine status: current every day tobacco/nicotine user e-cigarettes E-Cigarette Details: vaporizer device Alcohol intake: current Alcohol intake frequency: holidays/special occasions only Substance/Drug Use: never Marital status: Single Number of children: 0 Current occupational status: employed 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
--- NOTE | 2024-12-09 09:12 | P.PCN_ITS ---
Procedure Note: Date of procedure: 12/09/24 Pre-procedure diagnosis: Severe mitral regurgitation Post-procedure diagnosis: other (Patent coronary arteries) Procedure: Left main artery is patent. LAD is patent. Left circumflex artery is patent. SVG to RCA is patent. [place] RCA not found Performing Provider: Andrei Hatfield Estimated blood loss (mL): 10 Complications: None Condition: stable Disposition: same day (Same day discharge) Coding Level of Care Code Acute Code for Chg Gio
[2024-12-09 09:38] VITALS: BP 103/71; PULSE 66; RESP 19; TEMP 36.6; O2SAT 99
[2024-12-09 11:33] VITALS: BP 89/59; PULSE 75; RESP 24; TEMP 36.7; O2SAT 94
--- NOTE | 2024-12-09 13:00 | P.SS_ITS ---
<Statement entered by Andrei Hatfield M.D - 12/10/24 08:33> Patient was evaluated and cared for in conjunction with an advanced practice practitioner.? I personally examined the patient and reviewed the chart and all pertinent data including imaging, telemetry, and laboratory results.? I discussed the patient in detail with the advanced practice practitioner.? Please see? their note for complete short stay summary, testing results and agreed upon plan of care for the patient. 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 Plan is for repair/replacement. Surgery team has requested cardiac catheterization prior to cardiothoracic surgery. Review of Systems Const: Denies: fever(s), chills, change in weight, fatigue or diaphoresis Eyes: Denies: change in vision ENMT: Denies: epistaxis Card: Denies: chest pain, palpitations, irregular heart rhythm, edema, syncope, pre-syncope, dyspnea on exertion, orthopnea or leg pain with exertion Resp: Denies: dyspnea, productive cough or wheezing GI: Denies: nausea, vomiting, hematemesis, hematochezia or melena : Denies: hematuria Musc: Denies: extremity swelling Rafa/Lymph: Denies: easy bruising or easy bleeding Home Meds/Allergies Home Medications and Allergies Home Medications ?Medication ?Instructions ?Recorded ?Confirmed ?Type hydroxychloroquine 200 mg tablet 400 mg PO DAILY 08/1612/08/24 History mycophenolate mofetil 500 mg tablet 500 mg PO DAILY 12/08/24 History Allergies Allergy/AdvReac Type Severity Reaction Status Date / Time No Known Allergies Allergy Verified 12/09/24 06:29 PFSH Acute PFSH: Medical History Lupus Mitral regurgitation severe Hx of streptococcal septicemia Abscess of aortic root hx of abscess aortic root Acid reflux no current sympotms. Heart failure Herpes Dysfunctional gallbladder Ovarian cyst History of bicuspid aortic valve Libman Sacks endocarditis Surgical History S/P aortic valve replacement with bioprosthetic valve S/P CABG (coronary artery bypass graft) november 2022 History of tonsillectomy and adenoidectomy Family History Grandmother Stroke Grandmother Diabetes Other Breast cancer Lupus (systemic lupus erythematosus) Denies family history of Colon cancer Ovarian cancer Prostate cancer Heart disease Hypertension Uterine cancer Thyroid disease Social History Smoking and tobacco/nicotine status: current every day tobacco/nicotine user e- cigarettes E-Cigarette Details: vaporizer device Alcohol intake: current Alcohol intake frequency: holidays/special occasions only Substance/Drug Use: never Marital status: Single Number of children: 0 Current occupational status: employed 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 Vitals/I&O/Wt Last Vital Signs Temp 98.0 F 12/09/24 11:33 Pulse 75 12/09/24 11:33 Resp 24 H 12/09/24 11:33 BP 89/59 12/09/24 11:33 Pulse Ox 94 12/09/24 11:33 O2 Del Method Room Air 12/09/24 11:33 12/08/24 12/09/24 12/09/24 22:59 06:59 14:59 Intake Total 120 / 120 Balance 120 / 120 Weight last 48 hrs Weight 180 lb Physical Exam Const: COMMON NORMALS: no acute distress and patient oriented x3 GENERAL APPEARANCE: cooperative ORIENTATION/CONSCIOUSNESS: Yes awake, Yes oriented to person, Yes oriented to place and Yes oriented to time Chest: COMMONS NORMALS: normal inspection of the chest and normal palpation of entire chest wall CHEST: Yes Symmetrical chest wall rise Resp: COMMON NORMALS: normal respiratory effort, No retractions, No use of accessory muscles and clear to auscultation bilaterally AUSCULTATION: clear to auscultation bilaterally Cardio: COMMON NORMALS: regular rate, regular rhythm, S1 normal heart sound present, S2 normal heart sound present, No gallops present (Cardio), No clicks present (Cardio) and No rub (Cardio) RATE: regular rate RHYTHM: regular rhythm HEART SOUNDS: S1 normal heart sound present, S2 normal heart sound present and Murmur heart sound present systolic Intensity: III/ PERIPHERAL PULSES: radial pulses present positive right 2+ and femoral pulses present positive right 2+ Neuro: COMMON NORMALS: patient oriented x3 and moves all extremities SENSORIUM/ORIENTATION: Yes oriented to person, Yes oriented to place and Yes oriented to time Skin: WOUNDS: Yes surgical site (no hematoma palpable) Details: no odor Hospital Course Hospital Course She underwent coronary angiogram today, revealing patent left main, LAD, left circumflex, SVG to RCA. [place] RCA not found. No complications with right femoral cath site. She has ambulated without difficulty. Blood pressure is usually around 90-110 systolic, has been running in the 90s systolic post cath, will give 250mL IV fluid before discharge, LVEF is normal. She does not have any chest pain, shortness of breath, edema, dizziness/presyncope. Will discharge home today, images will be sent to Dr Wilson at the [facility]. SSS Data Data Completed and Pending: Pending at discharge Category Date Time Status RIPSAW GRADER request for service Routin e Exams 12/09/24 06:00 Taken Discharge Plan Discharge Patient Disposition: Home Condition: Stable Prescriptions: Continued albuterol sulfate 90 mcg/actuation HFA aerosol inhaler 2 puff inhalation Q6H PRN (Reason: shortness of breath or wheezing) Qty: 8.5 0RF potassium chloride 10 mEq capsule, extended release 10 meq PO DAILY Qty: 30 11RF Entresto 24-26 mg tablet 1 tab PO BID Qty: 60 11RF enoxaparin [Lovenox] 60 mg/0.6 mL syringe 60 mg SUBCUT BID 30 Days Qty: 36 3RF Rx Instructions: INJECT 1 SYRINGE 60MG (0.6ML) SUBCUTANEOUSLY TWICE DAILY carvedilol 3.125 mg tablet 3.125 mg PO BID Qty: 60 11RF bumetanide 1 mg tablet 1 mg PO DAILY Qty: 30 11RF valacyclovir 1 gram tablet 1,000 mg PO DAILY 30 Days Qty: 30 11RF mycophenolate mofetil 500 mg tablet 500 mg PO DAILY hydroxychloroquine 200 mg tablet 400 mg PO DAILY Discharge Orders: Discharge Order (Routine); Ordered 12/09/24 Ordered By: Desiree Shelley Referrals: Desiree Shelley, PHYSICIAN AIDE [Nurse Practitioner] - Discharge Diet: Advance as tolerated Discharge Activity: Increase activity as tolerated Patient Instructions: Opioid Safety Activity Restrictions/Additional Instructions: No lifting over 5 pounds for the next 4 days. Print Language: Bur[place]ian Attestations Medical Necessity Statement*: plan to discharge home today Time Spent in Patient Care*: less than 30 min Quality Metrics Clinical Quality Measures: [ No reported AMI, CVA or VTE this stay ] Coding Level of Care Code Acute Code for [facility] Fwviraj
[2024-12-09 16:32] VITALS: BP 94/70; PULSE 73; RESP 17; TEMP 36.6; O2SAT 100
[2024-12-09 17:34] VITALS: BP 100/65; PULSE 88; RESP 14; O2SAT 98
== END 2024-12-09 17:50 | disposition home or self-care (01) ==
LOC: CCL 05:48 → CSU 13:00
PROVIDERS: PCP Clinical Nurse Specialist Adult Health; Visit Provider Internal Medicine
DX: I34.0 Nonrheumatic mitral (valve) insufficiency (principal); I51.89 Other ill-defined heart diseases; F17.290 Nicotine dependence, other tobacco product, uncomplicated; Z95.1 Presence of aortocoronary bypass graft; Z86.79 Personal history of other diseases of the circulatory system; Z79.01 Long term (current) use of anticoagulants; M32.9 Systemic lupus erythematosus, unspecified
CPT/HCPCS: 36415; 81025; 93459; 99152; 99153; C1760; C1769; C1887; C1894; G0269; G0378; J1644; J2250; J3010; J3490; J7030; J9999; Q0163; Q9967

== ENCOUNTER 2025-01-06 00:24 | Emergency (ER) | payer OTHER, SELFPAY ==
[2025-01-06] VITALS (8 sets, daily range): BP systolic 107–119; BP diastolic 47–75; PULSE 64–101; RESP 16–26; TEMP 36.8; O2SAT 92–100; BMI 26.6
[2025-01-06 01:28] LABS: Bilirubin Urine Negative (Negative); Blood Urine Negative (Negative); Glucose Urine UA Negative (Normal); Ketones Urine Trace (Negative); Leukocyte Esterase Urine Negative (Negative); Nitrate Urine Negative (Negative); Protein Urine 1+ (Negative); Urine Appearance Clear (CLEAR); Urine Color Yellow (Yellow)
[2025-01-06 01:31] LABS: Add Urine Microscopic? YES; Bacteria Urine Trace /hpf; Hyaline Casts Urine 0.81 /lpf; RBC Urine 0-2 /hpf (0-2); Squamous Epithelial Cell Urine 0-5 /hpf (0-5); WBC Urine 0-5 /hpf (0-5)
[2025-01-06 01:43] LABS: Basophils % 0.5 %; Eosinophils % 0.5 %; Hematocrit 38.7 % (36-47); Lymphocytes # 2.1 10^3/uL (0.8-4.8); Lymphocytes % 25.5 %; Mean Corpuscular HGB Conc 32.3 g/dL (30-55); Mean Corpuscular Hemoglobin 27.5 pg (27-33); Mean Corpuscular Volume 85.2 fl (85-98); Mean Platelet Volume 11.3 fL (7.4-10.4); Monocytes # 0.6 10^3/uL (0.2-0.9); Monocytes % 7.1 %; Neutrophils # 5.52 10^3/uL (1.8-7.7); Neutrophils % 66.2 %; Nucleated Red Blood Cells % 0 %; Platelet Count 188 10^3/cmm (157-399); Red Blood Count 4.54 10^6/uL (3.85-5.65); Red Cell Distribution Width 13.2 % (12.1-15.1); White Blood Count 8.33 10^3/uL (3.29-11.43)
[2025-01-06 01:54] LABS: HCG, Serum Qual Negative (Negative)
--- NOTE | 2025-01-06 01:54 | CTR_ITS ---
PROCEDURE INFORMATION: Exam: CTA Chest With Contrast Exam date and time: 01/06/2025 2:08 AM Age: 24 years old Clinical indication: Abdominal pain; Epigastric; Additional info: Ruq pain, HX of afib, not compliant with lovenox x months, HX of TECHNIQUE: Imaging protocol: Computed tomographic angiography of the chest with contrast. Exam focused on the arteries. 3D rendering (Not supervised by radiologist): MIP and/or 3D reconstructed images were created by the technologist. Radiation optimization: All CT scans at this facility use at least one of these dose optimization techniques: automated exposure control; mA and/or kV adjustment per patient size (includes targeted exams where dose is matched to clinical indication); or iterative reconstruction. COMPARISON: CT angio chest PE protcl [id number] 05/22/2024 6:36 PM FINDINGS: Limitations: Motion artifact limits evaluation. Pulmonary arteries: Normal. No pulmonary emboli. Aorta: Minor dilation ascending aorta 3.4 cm not significantly changed. No dissection. Lungs: Unremarkable. No consolidation. No masses. Pleural spaces: Unremarkable. No pneumothorax. No pleural effusion. Heart: There is mild cardiomegaly. Mediastinal space: Postsurgical changes of the mediastinum. Lymph nodes: Unremarkable. No enlarged lymph nodes. Bones/joints: Pectus excavatum. Soft tissues: Unremarkable. CT[facility] [id number] IMPRESSION: No acute findings.
[2025-01-06 01:59] LABS: Alanine Aminotransferase 11 U/L (0-33); Albumin Level 4.5 g/dL (3.5-5.2); Alkaline Phosphatase 77 U/L (35-105); Anion Gap 16.2 (5-19); Aspartate Amino Transferase 18 U/L (0-32); Blood Urea Nitrogen 15 mg/dL (6-20); Calcium 9.3 mg/dL (8.5-10.5); Carbon Dioxide 20 mmol/L (22-29); Chloride 109 mmol/L (98-107); Creatinine Clr Calc Pharmacy 122.0519; Glomerular Filtration Rate 89.7 mL/min (90-130); Glucose 90 mg/dL (65-115); Lipase 34 U/L (13-60); Osmolality Calculated 292 mOsm/kg (285-295); Potassium 4.2 mmol/L (3.5-5.1); Sodium 141 mmol/L (136-145); Total Protein 7.5 g/dL (6.6-8.7)
--- NOTE | 2025-01-06 01:59 | ECG_ITS ---
Sendmebox Test Date: 2025-01-06 Pat Name: Gerson Shrestha Department: Room: Gender: Female Electrolysis Operator: : 2000 Requested By: Oneal Fallon Order Number: [id number] Kelsie MD: Rudy Westfall M.D. Measurements Intervals [place] Rate: 66 P: 10 HI: 153 QRS: 46 QRSD: 117 T: 15 QT: 383 QTc: 404 Interpretive Statements SINUS RHYTHM WITH OCCASIONAL VENTRICULAR PREMATURE COMPLEXES LEFT ATRIAL ENLARGEMENT [-0.15mV P-WAVE IN V1/V2] ANTERIOR MYOCARDIAL INFARCTION , OF INDETERMINATE AGE [40+ ms Q WAVE AND/OR ST/T ABNORMALITY IN V3/V4] PROBABLE INFERIOR MYOCARDIAL INFARCTION , PROBABLY OLD [35 ms Q WAVE IN II/aVF] Compared to ECG 08/16/2024 04:01:06 Ventricular premature complex(es) now present Myocardial infarct finding still present Electronically Signed On 01-06-2025 08:36:53 CDT by Rudy Westfall M.D. [email or web address]
[2025-01-06] MEDS: ondansetron 2 mg/ML SDV 2 mL 4 MG IVP (02:05)
[2025-01-06] MEDS: HYDROmorphone 0.5 MG/0.5 ML INJ 1 MG IVP (02:05)
[2025-01-06] MEDS: sodium chloride 0.9% 1,000 ML 999 ML IV (02:05)
[2025-01-06 02:14] LABS: Lactic Sepsis W/Reflex 0.8 mmol/L (0.5-2.2)
--- NOTE | 2025-01-06 02:17 | ED_ITS ---
HPI - Abdominal Pain 2 General: Chief Complaint: Abdominal Pain Stated Complaint: Pain on R side Possible Gollbladder Time Seen by Provider: 01/06/25 01:18 History of Present Illness: The patient has a history of gallbladder issues and was supposed to have it removed in September, but the environmental sustainability manager advised waiting due to an upcoming heart surgery. The patient has had aortic valve replacement and now requires mitral valve replacement. The patient experiences severe pain, particularly in the right upper quadrant, which sometimes occurs after eating. The patient has a history of a streptococcal infection that led to an abscess on the aortic root, resulting in sepsis and a ruptured aortic root. The patient was diagnosed with lupus and antiphospholipid syndrome in 2020 and has had splenic infarctions. The patient has been non-compliant with medications, including heart medications and blood thinners like Lovenox, for months. The patient has a history of AFib, which was controlled with amiodarone. The patient reports recent chest pains and is concerned about potential clotting due to AFib and lack of anticoagulation therapy. Related Data Date of Last Menstrual Period: 12/19/24 Home Medications ?Medication ?Instructions ?Recorded ?Confirmed hydroxychloroquine 200 mg tablet 400 mg PO DAILY 08/1612/28/24 mycophenolate mofetil 500 mg tablet 500 mg PO DAILY 12/28/24 Previous Rx's ?Medication ?Instructions ?Recorded albuterol sulfate 90 mcg/actuation 2 puff inhalation Q 6H PRN 11/29/24 aerosol inhaler shortness of breath or wheez ing #8.5 grams bumetanide 1 mg tablet 1 mg PO DAILY #30 tabs 12/01 carvedilol 3.125 mg tablet 3.125 mg PO BID #60 tabs enoxaparin 60 mg/0.6 mL 60 mg (0.6 mL) SUBCUT BID 30 days 12/01/24 subcutaneous syringe (Lovenox) #36 mL potassium chloride 10 mEq 10 meq PO DAILY #30 caps capsule,extended release sacubitril 24 mg-valsartan 26 mg 1 tab PO BID #60 tabs 12/01/24 tablet (Entresto) valacyclovir 1 gram tablet 1,000 mg PO DAILY 30 days # 30 tabs 12/01/24 ketorolac 10 mg tablet 10 mg PO Q8H 4 days #12 tabs 01/06/25 Allergies Allergy/AdvReac Type Severity Reaction Status Date / Time No Known Allergies Allergy Verified 12/09/24 06:29 PFSH ED 2 PFSH: Medical History Lupus Mitral regurgitation severe Hx of streptococcal septicemia Abscess of aortic root hx of abscess aortic root Acid reflux no current sympotms. Heart failure Herpes Dysfunctional gallbladder Ovarian cyst History of bicuspid aortic valve Libman Sacks endocarditis Surgical History S/P aortic valve replacement with bioprosthetic valve S/P CABG (coronary artery bypass graft) november 2022 History of tonsillectomy and adenoidectomy Family History Grandmother Stroke Grandmother Diabetes Other Breast cancer Lupus (systemic lupus erythematosus) Denies family history of Colon cancer Ovarian cancer Prostate cancer Heart disease Hypertension Uterine cancer Thyroid disease Social History Smoking and tobacco/nicotine status: former use of tobacco/nicotine Alcohol intake: current Alcohol intake frequency: holidays/special occasions only Substance/Drug Use: never Marital status: Single Number of children: 0 Current occupational status: employed 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 Female Reproductive History: Date of last menstrual period: 12/19/24 Physical Exam 2 Const: COMMON NORMALS: no acute distress, patient oriented x3 and alert HENMT: COMMON NORMALS: normocephalic and atraumatic HEAD & SCALP: n ormocephalic and atraumatic Eye: COMMON NORMALS: Equal, round and reactive pupils present, EOMs intact bilaterally and no scleral icterus PUPIL: Yes Equal, round and reactive pupils present Resp: COMMON NORMALS: normal respiratory effort and No retractions Cardio: COMMON NORMALS: regular rate, regular rhythm and No murmurs present (Cardio) RATE: regular rate RHYTHM: regular rhythm GI: OTHER: Soft, normal bowel sounds, moderate tenderness with palpation of the right upper quadrant. Remainder exam is unremarkable. No guarding. Neuro: COMMON NORMALS: patient oriented x3 SENSORIUM/ORIENTATION: Yes alert Skin: COMMON NORMALS: no rashes or lesions noted GENERAL SKIN EXAM: no rashes or lesions noted Course 2 Vital Signs: Vital signs: Vital Signs Temperature 98.2 F 01/06/25 00:26 Pulse Rate 72 01/06/25 06:47 Respiratory Rate 22 H 01/06/25 03:30 Blood Pressure 119/53 01/06/25 06:47 Pulse Oximetry 99 01/06/25 06:47 Oxygen Delivery Me thod Room Air 01/06/25 06:00 MDM - Abdominal Pain Medical Decision Making Patient remained hemodynamically stable through ED course. She required multiple doses of Dilaudid to control her pain. CT of the chest abdomen pelvis was performed showing a 8 cm right ovarian cyst. Ultrasound of the pelvis was performed showing adequate blood flow to the ovary. I spoke with on-call [facility] FOUNDER [facility] CEO who recommended outpatient follow-up to [facility] clinic to discuss having cyst drained. The situation is complicated by her need for cardiac clearance when she has been told in the past that she requires mitral valve repair before she can be cleared from a cardiac standpoint for other surgeries. She will follow- up with her environmental sustainability manager as well to try make this happen soon as feasible. Lab Data 01/06/25 01:35 01/06/25 01:35 Labs/Radiology: Radiology Impressions Chest/Abdomen/Pelvis CTA 01/06/25 01:54 IMPRESSION: No acute findings. Pelvic/Transvag US 01/06/25 04:19 IMPRESSION: No evidence of torsion. IMPRESSION: 7 cm anechoic simple right ovarian cysts, likely physiologic. Laboratory Results WBC 8.33 10^3/uL (3.29-11.43) 01/06/25 01:35 RBC 4.54 10^6/uL (3.85-5.65) 01/06/25 01:35 Hgb 12.50 g/dL (11.27-16.99) 01/06/25 01:35 Hct 38.7 % (36-47) 01/06/25 01:35 MCV 85.2 fl (85-98) 01/06/25 01:35 MCH 27.5 pg (27-33) 01/06/25 01:35 MCHC 32.3 g/dL (30-55) 01/06/25 01:35 RDW 13.2 % (12.1-15.1) 01/06/25 01:35 Plt Count 188 10^3/cmm (157-399) 01/06/25 01:35 MPV 11.3 fL (7.4-10.4) H 01/06/25 01:35 Neut % (Auto) 66.2 % 01/06/25 01:35 Lymph % (Auto) 25.5 % 01/06/25 01:35 [place] % (Auto) 7.1 % 01/06/25 01:35 Eos % (Auto) 0.5 % 01/06/25 01:35 Baso % (Auto) 0.5 % 01/06/25 01:35 Neut # (Auto) 5.52 10^3/uL (1.8-7.7) 01/06/25 01:35 Lymph # (Auto) 2.1 10^3/uL (0.8-4.8) 01/06/25 01:35 [place] # (Auto) 0.6 10^3/uL (0.2-0.9) 01/06/25 01:35 Eos # (Auto) 0.0 10^3/uL (0.0-0.8) 01/06/25 01:35 Baso # (Auto) 0.0 10^3/uL (0.0-0.1) 01/06/25 01:35 Nucleated RBC % (auto) 0 % 01/06/25 01:35 Nucleated RBCs # 0.0 /100WBC 01/06/25 01:35 Sodium 141 mmol/L (136-145) 01/06/25 01:35 Potassium 4.2 mmol/L (3.5-5.1) 01/06/25 01:35 Chloride 109 mmol/L (98-107) H 01/06/25 01:35 Carbon Dioxide 20 mmol/L (22-29) L 01/06/25 01:35 Anion Gap 16.2 (5-19) 01/06/25 01:35 BUN 15 mg/dL (6-20) 01/06/25 01:35 Creatinine 0.8 mg/dL (0.5-0.9) 01/06/25 01:35 GFR Calculation 89.7 mL/min (90-130) L 01/06/25 01:35 Glucose 90 mg/dL (65-115) 01/06/25 01:35 Calculated Osmolality 292 mOsm/kg (285-295) 01/06/25 01:35 Lactic Acid 0.8 mmol/L (0.5-2.2) 01/06/25 01:35 Calcium 9.3 mg/dL (8.5-10.5) 01/06/25 01:35 Total Bilirubin 1.0 mg/dL (0.15-1.2) 01/06/25 01:35 AST 18 U/L (0-32) 01/06/25 01:35 ALT 11 U/L (0-33) 01/06/25 01:35 Alkaline Phosphatase 77 U/L (35-105) 01/06/25 01:35 Total Protein 7.5 g/dL (6.6-8.7) 01/06/25 01:35 Albumin 4.5 g/dL (3.5-5.2) 01/06/25 01:35 Globulin 3.0 g/dL (1.3-4.6) 01/06/25 01:35 Lipase 34 U/L (13-60) 01/06/25 01:35 HCG, Qual Negative (Negative) 01/06/25 01:35 Urine Color Yellow (Yellow) 01/06/25 01:25 Urine Appearance Clear (CLEAR) 01/06/25 01:25 Urine pH 7.0 (5-7) 01/06/25 01:25 Ur Specific [place] 1.030 (1.005-1.030) 01/06/25 01:25 Urine Protein 1+ (Negative) A 01/06/25 01:25 Urine Glucose (UA) Negative (Normal) 01/06/25 01:25 Urine Ketones Trace (Negative) 01/06/25 01:25 Urine Blood Negative (Negative) 01/06/25 01:25 Urine Nitrate Negative (Negative) 01/06/25 01:25 Urine Bilirubin Negative (Negative) 01/06/25 01:25 Urine Urobilinogen 1.0 mg/dL (Negative) 01/06/25 01:25 Ur Leukocyte Esterase Negative (Negative) 01/06/25 01:25 Urine RBC 0-2 /hpf (0-2) 01/06/25 01:25 Urine WBC 0-5 /hpf (0-5) 01/06/25 01:25 Ur Squamous Epith Cells 0-5 /hpf (0-5) 01/06/25 01:25 Amorphous Sediment Not Reportable 01/06/25 01:25 Urine Bacteria Trace /hpf (NONE) 01/06/25 01:25 Hyaline Casts 0.81 /lpf 01/06/25 01:25 All radiology interpretation(s) finalized by discharge EKG Data EKG 1: Other EKG comments: Time?0159?sinus rhythm with infrequent PVCs, [address] depression in leads II, III, aVF and I [address] elevation in leads V2 and aVR. Infrequent PVCs. T waves inverted in the inferior leads. QTc = 397 Discharge Plan Discharge Patient Disposition: Home Clinical Impression: Cyst of right ovary Condition: Stable Prescriptions: New ketorolac 10 mg tablet 10 mg PO Q8H 4 Days Qty: 12 0RF No Action albuterol sulfate 90 mcg/actuation HFA aerosol inhaler 2 puff inhalation Q6H PRN (Reason: shortness of breath or wheezing) Qty: 8.5 0RF potassium chloride 10 mEq capsule, extended release 10 meq PO DAILY Qty: 30 11RF Entresto 24-26 mg tablet 1 tab PO BID Qty: 60 11RF enoxaparin [Lovenox] 60 mg/0.6 mL syringe 60 mg SUBCUT BID 30 Days Qty: 36 3RF Rx Instructions: INJECT 1 SYRINGE 60MG (0.6ML) SUBCUTANEOUSLY TWICE DAILY carvedilol 3.125 mg tablet 3.125 mg PO BID Qty: 60 11RF bumetanide 1 mg tablet 1 mg PO DAILY Qty: 30 11RF valacyclovir 1 gram tablet 1,000 mg PO DAILY 30 Days Qty: 30 11RF mycophenolate mofetil 500 mg tablet 500 mg PO DAILY hydroxychloroquine 200 mg tablet 400 mg PO DAILY Discharge Orders: Discharge ED (Routine); Ordered 01/06/25 Ordered By: Oneal Uriostegui Referrals: Viet Rogers MD [Physician] - (8cm right ovarian cyst, ?intermittent torsion) Ortiz Berger NP [Primary Care Provider] - Discharge Diet: Advance as tolerated Discharge Activity: Increase activity as tolerated Patient Instructions: Ovarian Cyst (ED) Activity Restrictions/Additional Instructions: On-call [employer] [facility] [employer] physician recommended close follow-up to [facility] clinic and Toradol prescription to see whether you can get surgery scheduled to have cyst drained. Print Language: Serbian Coding Level of Care Code ED Child Development Director for Elizabeth Powers
[2025-01-06] MEDS: iohexol 350 mg/mL 500 mL Btl (per mL) IV (02:32)
[2025-01-06] MEDS: HYDROmorphone 0.5 MG/0.5 ML INJ IVP (03:27)
--- NOTE | 2025-01-06 04:19 | USR_ITS ---
PROCEDURE INFORMATION: Exam: US Duplex Artery and Vein of the Abdominal and/or Reproductive Organs. Complete Ovaries Exam date and time: 01/06/2025 5:01 AM Age: 24 years old Clinical indication: Pain; Other: Rlq; Additional info: 8cm right adnexal mass, concern for torsion TECHNIQUE: Imaging protocol: Real-time duplex ultrasound scan of the arterial and venous flow with color Doppler flow and spectral waveform analysis with image documentation. Duplex exam was performed to evaluate for torsion and other vascular conditions. COMPARISON: US gall bladder [id number] 09/05/2024 3:42 AM FINDINGS: Right ovary/adnexa: Spectral Doppler shows normal venous and arterial waveform of the right ovary. Left ovary/adnexa: Spectral Doppler shows normal venous and arterial waveform of the left ovary. PROCEDURE INFORMATION: Exam: US Pelvis Transabdominal, Limited, and US Pelvis Transvaginal, Non-Obstetric Exam date and time: 01/06/2025 5:01 AM Age: 24 years old Clinical indication: Pain; Other: Rlq; Additional info: 8cm right adnexal mass, concern for torsion TECHNIQUE: Imaging protocol: Real-time transabdominal and transvaginal pelvic ultrasound (non-obstetric) with image documentation. Transabdominal imaging is limited. Transvaginal imaging was used for better evaluation of the endometrium, adnexa, and/or cervix. COMPARISON: US gall bladder [id number] 09/05/2024 3:42 AM FINDINGS: Uterus: Intrauterine device is noted. Uterus anteverted and normal. Right ovary/adnexa: 7 cm anechoic simple right ovarian cysts, likely physiologic. Left ovary/adnexa: Left ovary normal. Urinary bladder: Urinary bladder is limited. Intraperitoneal space: [id number] simple appearing free fluid in the pelvis. US/US pelvis lmt w transvag IMPRESSION: No evidence of torsion. IMPRESSION: 7 cm anechoic simple right ovarian cysts, likely physiologic.
[2025-01-06] MEDS: ketorolac 30 mg/mL INJ 15 MG IVP (06:33)
--- NOTE | 2025-01-06 07:07 | DCPLANNER ---
messaged [facility] for er f/u
== END 2025-01-06 06:48 | disposition home or self-care (01) ==
PROVIDERS: Physician Assistant; Emergency Provider Student in an Organized Health Care Education/Training Program; PCP Clinical Nurse Specialist Adult Health
DX: N83.201 Unspecified ovarian cyst, right side (principal); Z87.891 Personal history of nicotine dependence; I50.9 Heart failure, unspecified
CPT/HCPCS: 36415; 71275; 74174; 76830; 76857; 80053; 81001; 83605; 83690; 84703; 85025; 93005; 96374; 96375; 96376; 99285; J1171; J1885; J2405; J7030

== ENCOUNTER 2025-01-30 08:05 | Oncology outpatient (recurring) (ONCR) | payer OTHER, SELFPAY ==
[2025-01-30 09:31] LABS: Basophils % 0.3 %; Eosinophils # 0.1 10^3/uL (0.0-0.8); Eosinophils % 0.7 %; Hematocrit 33.9 % (36-47); Lymphocytes % 22.4 %; Mean Corpuscular HGB Conc 32.7 g/dL (30-55); Mean Corpuscular Hemoglobin 27.9 pg (27-33); Mean Corpuscular Volume 85.2 fl (85-98); Mean Platelet Volume 12.2 fL (7.4-10.4); Monocytes # 0.6 10^3/uL (0.2-0.9); Neutrophils # 6.31 10^3/uL (1.8-7.7); Neutrophils % 69.3 %; Nucleated Red Blood Cells % 0 %; Platelet Count 130 10^3/cmm (157-399); Red Blood Count 3.98 10^6/uL (3.85-5.65); White Blood Count 9.11 10^3/uL (3.29-11.43)
[2025-01-30 09:49] LABS: D Dimer 0.38 ug/mLFEU (0-0.59)
[2025-01-30 09:57] LABS: Alanine Aminotransferase 8 U/L (0-33); Albumin Level 4.2 g/dL (3.5-5.2); Alkaline Phosphatase 60 U/L (35-105); Anion Gap 16.7 (5-19); Aspartate Amino Transferase 13 U/L (0-32); Blood Urea Nitrogen 17 mg/dL (6-20); Calcium 9.2 mg/dL (8.5-10.5); Carbon Dioxide 21 mmol/L (22-29); Chloride 106 mmol/L (98-107); Creatinine Clr Calc Pharmacy 146.7859; Ferritin 30 ng/mL (15-150); Globulin 2.4 g/dL (1.3-4.6); Glomerular Filtration Rate 104.6 mL/min (90-130); Glucose 89 mg/dL (65-115); Iron 24 ug/dL (37-145); Lactate Dehydrogenase 186 U/L (135-214); Osmolality Calculated 291 mOsm/kg (285-295); Potassium 3.7 mmol/L (3.5-5.1); Sodium 140 mmol/L (136-145); Total Bilirubin 0.8 mg/dL (0.15-1.2); Total Iron Binding Capacity 300 mcg/dl; Total Protein 6.6 g/dL (6.6-8.7); Unsaturated Iron Binding 276 ug/dL (112-347)
[2025-02-01 23:29] LABS: Lupus DRVVT 1:1 Mix CORRECTED (CORRECTED); Lupus DRVVT Confirm POSITIVE (NEGATIVE); Lupus Hexagonal Phas Confirm POSITIVE (NEGATIVE); Lupus Thrombin Clotting Time 16 sec (13-19); PTT-LA-Screen 61 sec (< OR = 40)
[2025-02-02 07:20] LABS: Anti-Cardiolipin IgA AB 4.3 APL-U/mL
[2025-02-02 15:39] LABS: Anti-Nuclear AB Pattern #2 Nuclear, Centromere; Anti-Nuclear Antibody Pattern Nuclear, Speckled; Anti-Nuclear Antibody Screen POSITIVE (NEGATIVE)
[2025-02-03 06:19] LABS: Beta 2 Glycoprotein IGA 2.4 U/mL (<20.0); Beta 2 Glycoprotein IGG 6.6 U/mL (<20.0); Beta 2 Glycoprotein IGM <2.0 U/mL (<20.0)
== END 2025-02-18 23:59 | disposition home or self-care (01) ==
PROVIDERS: PCP Clinical Nurse Specialist Adult Health; Visit Provider Internal Medicine
DX: M32.9 Systemic lupus erythematosus, unspecified (principal); Z95.3 Presence of xenogenic heart valve; D68.61 Antiphospholipid syndrome; F51.02 Adjustment insomnia; B00.9 Herpesviral infection, unspecified
CPT/HCPCS: 36415; 80053; 82728; 83540; 83550; 83615; 85025; 85378; 85613; 85730; 86038; 86146; 86147

== ENCOUNTER → 2025-02-09 14:23 | Outpatient (BNVA) | payer OTHER, SELFPAY | PROVIDERS: PCP Clinical Nurse Specialist Adult Health; Visit Provider Obstetrics & Gynecology | DX: R10.2 Pelvic and perineal pain (principal); N83.201 Unspecified ovarian cyst, right side; Z97.5 Presence of (intrauterine) contraceptive device; N83.292 Other ovarian cyst, left side | CPT/HCPCS: 76830 ==

== ENCOUNTER 2025-04-05 21:49 | Emergency (ER) | payer OTHER, SELFPAY ==
[2025-04-05 21:54] VITALS: BP 117/74; PULSE 91; RESP 17; TEMP 36.6; O2SAT 100; BMI 26.6
[2025-04-05 22:11] VITALS: BP 128/85; PULSE 84; O2SAT 100
--- NOTE | 2025-04-05 22:19 | USR_ITS ---
PROCEDURE INFORMATION: Exam: US Abdomen, Limited; Right Upper Quadrant Exam date and time: 04/05/2025 10:30 PM Age: 24 years old Clinical indication: Abdominal pain; Epigastric; Additional info: Ruq pain, n/v TECHNIQUE: Imaging protocol: Real time ultrasound of the abdomen with image documentation. Limited exam focused on the right upper quadrant. COMPARISON: US pelvis lmt w transvag 01/06/2025 5:01 AM FINDINGS: Liver: 16.6 cm in length, sonographically unremarkable. No masses. Hepatopetal flow in the portal vein. Gallbladder: Few small 3-4 mm polyps. No gallstones. There is no gallbladder wall thickening. Biliary ducts: Common bile duct normal caliber measuring 4 mm. No stones. No dilation. Pancreas: Visualized pancreas is unremarkable. Right kidney: 11.2 cm in length. No mass. No hydronephrosis. US/US gall bladder [id number] IMPRESSION: 1. No acute sonographic abnormalities. 2. Few small gallbladder polyps incidentally noted.
[2025-04-05 22:29] LABS: Hematocrit 36.1 % (36-47); Hemoglobin 11.70 g/dL (11.27-16.99); Mean Corpuscular HGB Conc 32.4 g/dL (30-55); Mean Corpuscular Hemoglobin 28.5 pg (27-33); Mean Corpuscular Volume 88.0 fl (85-98); Nucleated Red Blood Cells % 0 %; Platelet Count 174 10^3/cmm (157-399); Red Blood Count 4.10 10^6/uL (3.85-5.65); White Blood Count 7.31 10^3/uL (3.29-11.43)
[2025-04-05] MEDS: ondansetron 2 mg/ML SDV 2 mL 4 MG IVP (22:39)
[2025-04-05 22:40] VITALS: RESP 16; O2SAT 97
[2025-04-05 22:40] LABS: Alanine Aminotransferase 10 U/L (0-33); Albumin Level 4.5 g/dL (3.5-5.2); Alkaline Phosphatase 83 U/L (35-105); Anion Gap 17.8 (5-19); Aspartate Amino Transferase 14 U/L (0-32); Blood Urea Nitrogen 16 mg/dL (6-20); Calcium 9.4 mg/dL (8.5-10.5); Carbon Dioxide 22 mmol/L (22-29); Chloride 105 mmol/L (98-107); Creatinine Clr Calc Pharmacy 126.0346; Globulin 3.1 g/dL (1.3-4.6); Glucose 87 mg/dL (65-115); Lipase 36 U/L (13-60); Osmolality Calculated 293 mOsm/kg (285-295); Potassium 3.8 mmol/L (3.5-5.1); Sodium 141 mmol/L (136-145); Total Protein 7.6 g/dL (6.6-8.7)
[2025-04-05] MEDS: morphine 4 mg/mL SDV 1 mL IVP (22:40)
--- NOTE | 2025-04-05 23:23 | W.ED.ABDPA2 ---
HPI - Abdominal Pain General: Chief Complaint: Abdominal Pain Stated Complaint: R ABD pain going from back to front Time Seen by Provider: 04/05/25 22:09 History of Present Illness: 24-year-old female with prior open-heart surgery for a ruptured aortic valve abscess (bioprosthetic valve placed, 2022) and recurrent biliary colic presents with acute upper-abdominal pain. Pain began suddenly today, initially spanning the entire epigastrium and radiating to the back; currently worst in the right upper quadrant and back. Associated with multiple episodes of emesis; pain intensity temporarily eased after vomiting but is building again. Last meal was chicken strips and Pashto fries. She notes episodic similar attacks in the past but no consistent food triggers. Denies focal right lower-quadrant pain. No recent cardiology changes; last echocardiogram reportedly stable. She is otherwise healthy, starting a new job in three weeks, and expresses concern about timing and safety of cholecystectomy given her cardiac history. Related Data Home Medications ?Medication ?Instructions ?Recorded ?Confirmed hydroxychloroquine 200 mg tablet 400 mg PO DAILY 08/16/24 04/05/25 mycophenolate mofetil 500 mg tablet 500 mg PO DAILY 08/16/24 04/05/25 Previous Rx's ?Medication ?Instructions ?Recorded albuterol sulfate 90 mcg/actuation 2 puff inhalation Q6H PRN 11/29/24 aerosol inhaler shortness of breath or wheezing #8.5 grams bumetanide 1 mg tablet 1 mg PO DAILY #30 tabs 12/01/24 carvedilol 3.125 mg tablet 3.125 mg PO BID #60 tabs 12/01/24 potassium chloride 10 mEq 10 meq PO DAILY #30 caps 12/01/24 capsule,extended release sacubitril 24 mg-valsartan 26 mg 1 tab PO BID #60 tabs 12/01/24 tablet (Entresto) valacyclovir 1 gram tablet 1,000 mg PO DAILY 30 days #30 tabs 12/01/24 enoxaparin 60 mg/0.6 mL 60 mg (0.6 mL) SUBCUT Q12H 30 days 01/30/25 subcutaneous syringe (Lovenox) #36 mL buspirone 10 mg tablet 10 mg PO BID PRN insomnia or 02/15/25 anxiety #60 tabs ferrous sulfate 325 mg (65 mg 325 mg PO BID #60 tabs 04/05/25 iron) tablet oxycodone 5 mg capsule 5 mg PO Q8H PRN pain #10 caps 04/06/25 Allergies Allergy/AdvReac Type Severity Reaction Status Date / Time No Known Allergies Allergy Verified 04/05/25 08:25 [facility] ED PFSH: Medical History (Updated 04/06/25 @ 02:35 by Oneal Uriostegui MD) Generalized anxiety disorder History of suicidal ideation Ovarian cyst Lupus Mitral regurgitation severe Hx of streptococcal septicemia Abscess of aortic root hx of abscess aortic root Acid reflux no current sympotms. Heart failure Herpes Dysfunctional gallbladder History of bicuspid aortic valve Libariadna Sacks endocarditis Surgical History S/P aortic valve replacement with bioprosthetic valve S/P CABG (coronary artery bypass graft) november 2022 History of tonsillectomy and adenoidectomy Family History Grandmother Stroke Grandmother Diabetes Other Breast cancer Lupus (systemic lupus erythematosus) Denies family history of Colon cancer Ovarian cancer Prostate cancer Heart disease Hypertension Uterine cancer Thyroid disease Social History Smoking and tobacco/nicotine status: former use of tobacco/nicotine Alcohol intake: current Alcohol intake frequency: holidays/special occasions only Substance/Drug Use: never Marital status: Single Number of children: 0 Current occupational status: employed 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 Physical Exam Const: COMMON NORMALS: no acute distress, patient oriented x3 and alert HENMT: COMMON NORMALS: normocephalic and atraumatic HEAD & SCALP: normocephalic and atraumatic Eye: COMMON NORMALS: Equal, round and reactive pupils present, EOMs intact bilaterally and no scleral icterus PUPIL: Yes Equal, round and reactive pupils present Resp: COMMON NORMALS: normal respiratory effort and No retractions Cardio: COMMON NORMALS: regular rate, regular rhythm and No murmurs present (Cardio) RATE: regular rate RHYTHM: regular rhythm GI: OTHER: Severe tenderness to palpation of the right upper quadrant. Abdomen is otherwise soft and nonperitoneal with normal bowel sounds. Neuro: COMMON NORMALS: patient oriented x3 SENSORIUM/ORIENTATION: Yes alert Skin: COMMON NORMALS: no rashes or lesions noted GENERAL SKIN EXAM: no rashes or lesions noted Course Vital Signs: Vital signs: Vital Signs Temperature 98 F 04/05/25 21:54 Pulse Rate 72 04/06/25 03:21 Respiratory Rate 16 04/06/25 03:21 Blood Pressure 102/61 04/06/25 03:21 Pulse Oximetry 98 04/06/25 03:21 Oxygen Delivery Me thod Room Air 04/06/25 01:11 MDM - Abdominal Pain Medical Decision Making In summary, patient is a generally well-appearing 24-year-old female who presented with severe epigastric pain and nausea and vomiting. With treatment, pain has completely resolved. She is now able to eat and drink after Zofran. Laboratory evaluation is reassuring and ultrasound does not show evidence of acute cholecystitis. I strongly suspect viral etiology to her symptoms and will give her a very short course of pain medication. She has Zofran already at home for nausea. She will be discharged in stable and improved condition Lab Data 04/05/25 22:05 04/05/25 22:05 Labs/Radiology: Radiology Impressions Gallbladder Ultrasound 04/05/25 22:19 IMPRESSION: 1. No acute sonographic abnormalities. 2. Few small gallbladder polyps incidentally noted. Laboratory Results WBC 7.31 10^3/uL (3.29-11.43) 04/05/25 22:05 RBC 4.10 10^6/uL (3.85-5.65) 04/05/25 22:05 Hgb 11.70 g/dL (11.27-16.99) 04/05/25 22:05 Hct 36.1 % (36-47) 04/05/25 22:05 MCV 88.0 fl (85-98) 04/05/25 22:05 MCH 28.5 pg (27-33) 04/05/25 22:05 MCHC 32.4 g/dL (30-55) 04/05/25 22:05 RDW 13.0 % (12.1-15.1) 04/05/25 22:05 Plt Count 174 10^3/cmm (157-399) 04/05/25 22:05 MPV 11.8 fL (7.4-10.4) H 04/05/25 22:05 Neut % (Auto) 59.3 % 04/05/25 22:05 Lymph % (Auto) 32.1 % 04/05/25 22:05 [place] % (Auto) 7.3 % 04/05/25 22:05 Eos % (Auto) 0.7 % 04/05/25 22:05 Baso % (Auto) 0.3 % 04/05/25 22:05 Neut # (Auto) 4.34 10^3/uL (1.8-7.7) 04/05/25 22:05 Lymph # (Auto) 2.4 10^3/uL (0.8-4.8) 04/05/25 22:05 [place] # (Auto) 0.5 10^3/uL (0.2-0.9) 04/05/25 22:05 Eos # (Auto) 0.1 10^3/uL (0.0-0.8) 04/05/25 22:05 Baso # (Auto) 0.0 10^3/uL (0.0-0.1) 04/05/25 22:05 Nucleated RBC % (auto) 0 % 04/05/25 22:05 Nucleated RBCs # 0.0 /100WBC 04/05/25 22:05 Sodium 141 mmol/L (136-145) 04/05/25 22:05 Potassium 3.8 mmol/L (3.5-5.1) 04/05/25 22:05 Chloride 105 mmol/L (98-107) 04/05/25 22:05 Carbon Dioxide 22 mmol/L (22-29) 04/05/25 22:05 Anion Gap 17.8 (5-19) 04/05/25 22:05 BUN 16 mg/dL (6-20) 04/05/25 22:05 Creatinine 0.8 mg/dL (0.5-0.9) 04/05/25 22:05 GFR Calculation 89.7 mL/min (90-130) L 04/05/25 22:05 Glucose 87 mg/dL (65-115) 04/05/25 22:05 Calculated Osmolality 293 mOsm/kg (285-295) 04/05/25 22:05 Calcium 9.4 mg/dL (8.5-10.5) 04/05/25 22:05 Total Bilirubin 0.6 mg/dL (0.15-1.2) 04/05/25 22:05 AST 14 U/L (0-32) 04/05/25 22:05 ALT 10 U/L (0-33) 04/05/25 22:05 Alkaline Phosphatase 83 U/L (35-105) 04/05/25 22:05 Total Protein 7.6 g/dL (6.6-8.7) 04/05/25 22:05 Albumin 4.5 g/dL (3.5-5.2) 04/05/25 22:05 Globulin 3.1 g/dL (1.3-4.6) 04/05/25 22:05 Lipase 36 U/L (13-60) 04/05/25 22:05 All radiology interpretation(s) finalized by discharge Discharge Plan Discharge Patient Disposition: Home Clinical Impression: Abdominal pain, Nausea & vomiting Condition: Stable Prescriptions: New oxycodone 5 mg capsule 5 mg PO Q8H PRN (Reason: pain) Qty: 10 0RF No Action enoxaparin [Lovenox] 60 mg/0.6 mL syringe 60 mg SUBCUT Q12H 30 Days Qty: 36 5RF Rx Instructions: INJECT 1 SYRINGE 60MG (0.6ML) SUBCUTANEOUSLY TWICE DAILY ferrous sulfate 325 mg (65 mg iron) tablet 325 mg PO BID Qty: 60 6RF albuterol sulfate 90 mcg/actuation HFA aerosol inhaler 2 puff inhalation Q6H PRN (Reason: shortness of breath or wheezing) Qty: 8.5 0RF potassium chloride 10 mEq capsule, extended release 10 meq PO DAILY Qty: 30 11RF Entresto 24-26 mg tablet 1 tab PO BID Qty: 60 11RF carvedilol 3.125 mg tablet 3.125 mg PO BID Qty: 60 11RF bumetanide 1 mg tablet 1 mg PO DAILY Qty: 30 11RF valacyclovir 1 gram tablet 1,000 mg PO DAILY 30 Days Qty: 30 11RF buspirone 10 mg tablet 10 mg PO BID PRN (Reason: insomnia or anxiety) Qty: 60 0RF mycophenolate mofetil 500 mg tablet 500 mg PO DAILY hydroxychloroquine 200 mg tablet 400 mg PO DAILY Discharge Orders: Discharge ED (Routine); Ordered 04/06/25 Ordered By: Oneal Uriostegui Referrals: Ortiz Berger SCIENTIST/ENGINEER [Primary Care Provider, [facility]] Discharge Diet: Advance as tolerated Discharge Activity: Increase activity as tolerated Patient Instructions: Abdominal Pain (ED), Patient Portal & Zackary Instructions Print Language: Malagasy Coding Level of Care Code ED Goldbeater for Elizabeth Powers
[2025-04-05 23:37] VITALS: BP 109/68; PULSE 82; O2SAT 99
[2025-04-06 00:16] VITALS: RESP 20
[2025-04-06] MEDS: morphine 4 mg/mL SDV 1 mL IVP (00:16)
[2025-04-06 01:11] VITALS: BP 103/69; PULSE 75; O2SAT 99
[2025-04-06 03:21] VITALS: BP 102/61; PULSE 72; RESP 16; O2SAT 98
== END 2025-04-06 03:22 | disposition home or self-care (01) ==
PROVIDERS: Emergency Provider Student in an Organized Health Care Education/Training Program; PCP Clinical Nurse Specialist Adult Health
DX: R10.11 Right upper quadrant pain (principal); R10.13 Epigastric pain; R11.2 Nausea with vomiting, unspecified; Z79.899 Other long term (current) drug therapy; Z95.2 Presence of prosthetic heart valve; Z87.891 Personal history of nicotine dependence
CPT/HCPCS: 76705; 80053; 83690; 85025; 96361; 96374; 96375; 99285; J2270; J2405; J7030

== ENCOUNTER → 2025-05-25 16:27 | Outpatient (BNVA) | payer OTHER, SELFPAY | PROVIDERS: PCP Clinical Nurse Specialist Adult Health; Visit Provider Nurse Practitioner Women's Health | DX: Z12.4 Encounter for screening for malignant neoplasm of cervix (principal) | CPT/HCPCS: 86592; 86705; 86706; 86709; 86803; 87340; 87806; 88175 ==

== ENCOUNTER → 2025-06-27 12:47 | Outpatient (BNVA) | payer OTHER, SELFPAY | PROVIDERS: PCP Clinical Nurse Specialist Adult Health; Visit Provider Nurse Practitioner Women's Health | DX: R23.2 Flushing (principal) | CPT/HCPCS: 82306; 84443 ==

== ENCOUNTER 2025-07-11 20:08 | Emergency (ER) | payer OTHER, SELFPAY ==
[2025-07-11] VITALS (7 sets, daily range): BP systolic 103–121; BP diastolic 61–89; PULSE 76–105; RESP 15–24; TEMP 36.9; O2SAT 98–100; BMI 26.6
--- NOTE | 2025-07-11 20:07 | ECG_ITS ---
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 Measurements Intervals [place] Rate: 81 P: 268 RI: 119 QRS: 16 QRSD: 113 T: 47 QT: 375 QTc: 437 Interpretive Statements Possible JUNCTIONAL RHYTHM INCOMPLETE RIGHT BUNDLE BRANCH BLOCK [90+ ms QRS DURATION, TERMINAL R IN V1/V2, 40+ ms S IN I/aVL/V4/V5/V6] INFERIOR MYOCARDIAL INFARCTION , PROBABLY OLD [40+ ms Q WAVE AND/OR ST/T ABNORMALITY IN II/aVF] Compared to ECG 01/06/2025 01:59:19 Junctional rhythm now present Incomplete right bundle-branch block now present Sinus rhythm no longer present Ventricular premature complex(es) no longer present Atrial abnormality no longer present Myocardial infarct finding still present Electronically Signed On 07-12-2025 22:54:32 CDT by Rudy Westfall M.D. [email or web address]
--- NOTE | 2025-07-11 20:10 | ED_ITS ---
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 She states symptoms started as a dull ache in her left flank/back, then she developed RUQ and epigastric pain. She has not had a fever, prior to onset of pain she did not have any runny nose, sore throat, cough, hemoptysis, shortness of breath or chest pain. She denies any dysuria though she does admit to increased urinary frequency. No hematuria. No diarrhea or blood in stool. She does not have a history of any abdominal surgeries. Patient reports a history of biliary colic. She was treated in the ambulance with Zofran, reports feeling much better. Related Data Previous Rx's ?Medication ?Instructions ?Recorded valacyclovir 1 gram tablet 1,000 mg PO DAILY 30 days # 30 tabs 12/01/24 bumetanide 1 mg tablet 1 mg PO DAILY #30 tabs 05/25 buspirone 10 mg tablet 10 mg PO BID PRN insomnia or 05/25/25 anxiety #60 tabs carvedilol 3.125 mg tablet 3.125 mg PO BID #60 tabs cyclobenzaprine 5 mg tablet 5 mg PO TID PRN muscle spa sm #45 05/25/25 tabs enoxaparin 60 mg/0.6 mL 60 mg (0.6 mL) SUBCUT Q12H 3 0 days 05/25/25 subcutaneous syringe (Lovenox) #36 mL hydroxychloroquine 200 mg tablet 400 mg (2 x 200 mg) P O DAILY #60 05/25/25 tabs mycophenolate mofetil 500 mg tablet 500 mg PO DAILY #6 0 tabs 05/25/25 potassium chloride 10 mEq 10 meq PO DAILY #30 caps 01/13 capsule,extended release sacubitril 24 mg-valsartan 26 mg 1 tab PO BID #60 tabs 05/25/25 tablet (Entresto) Allergies Allergy/AdvReac Type Severity Reaction Status Date / Time No Known Allergies Allergy Verified 05/25/25 15:24 PFS ED 2 PFS: Medical History (Updated 07/12/25 @ 03:16 by Moni Rosario MD) No pertinent past medical history neghx: htn, dm, thyori, dvt PCP: [place] Antiphospholipid syndrome Generalized anxiety disorder History of suicidal ideation Ovarian cyst Lupus Mitral regurgitation severe Hx of streptococcal septicemia Abscess of aortic root hx of abscess aortic root Acid reflux no current sympotms. Heart failure Herpes Dysfunctional gallbladder History of bicuspid aortic valve Libman Sacks endocarditis Surgical History S/P aortic valve replacement with bioprosthetic valve S/P CABG (coronary artery bypass graft) november 2022 History of tonsillectomy and adenoidectomy Family History Grandmother Stroke Grandmother Diabetes Other Breast cancer Lupus (systemic lupus erythematosus) Denies family history of Colon cancer Ovarian cancer Prostate cancer Heart disease Hypertension Uterine cancer Thyroid disease Social History Smoking and tobacco/nicotine status: current some day tobacco/nicotine user (vape) e-cigarettes E-Cigarette Details: vaporizer device Alcohol intake: current Alcohol intake frequency: holidays/special occasions only Substance/Drug Use: never Marital status: Single Number of children: 0 Current occupational status: employed 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 Patient is alert and oriented. Patient is breathing comfortably, no increased WOB or accessory muscle use. SpO2 is above 95% on RA. Patient has clear lungs b/l, no rhonchi, wheezing or crackles. No hypotension or tachycardia. Abdomen is soft. +Tenderness in the RUQ and epigastrium, though she is also a bit tender over the bladder. Patient is moving all extremities, no deformity or gross injury. No lower extremity edema or asymmetry. Course 2 Vital Signs: Vital signs: Vital Signs Temperature 98.4 F 07/11/25 20:09 Pulse Rate 65 07/12/25 02:30 Respiratory Rate 15 07/11/25 21:44 Blood Pressure 95/61 07/12/25 02:30 Pulse Oximetry 98 07/12/25 02:30 Oxygen Delivery Me thod Room Air 07/12/25 02:30 MDM - General Adult Medical Decision Making 25yo F w/pmhx of biliar colic, aortic root rupture s/p aorta and mitral valve replacement (biologic) and antiphospolipid syndrome. Differential diagnosis includes, but is not limited to, pancreatitis, cholecystitis, gastroenteritis, appendicitis, urinary tract infection, pyelonephritis, nephrolithiasis, pneumonia, other. On initial exam, patient is hemodynamically stable and nontoxic appearing. Patient was evaluated with CBC, CMP, lipase, UA and CT abd/pelvis. She was treated for pain w/ IV zofran and IV morphine. Patient has a normal white blood cell count and is not anemic. Patient has normal kidney function and only minimally elevated anion gap. She has normal liver function normal lipase. CT scan shows: IMPRESSION: 1. Relatively stable appearing 8.8 cm right adnexal cyst. If clinical concern for ovarian torsion is present, recommend pelvic sonogram with Doppler evaluation. 2. Corpus luteal cyst of the left ovary. 3. Appropriately seated IUD without complication. 4. Otherwise, no acute process in the abdomen or pelvis to explain the patient's symptoms. Given large cyst, torsion remains in the differential. Transvaginal ultrasound was performed: 1. Mildly increased size of the 8.8 cm simple right ovarian cyst with comparison to 02/09/2025. 2. Mildly decreased size of the complex left adnexal lesion with comparison to 02/09/2025. Given long-term persistence, consider MRI pelvis with and without contrast for definitive characterization. 3. Appropriately seated IUD without complication. 4. Small volume free pelvic fluid. On reassessment, patient is feeling better though she still feeling a little nauseated, she was treated with Toradol and Reglan. At this time, patient is appropriate for outpatient management. We discussed her CT imaging and ultrasound results, advised her to follow-up with her primary care physician and AERONAUT[facility] DRAFTER for further evaluation of her cysts. She was counseled on supportive care at home. Patient has previously had consultation for gallbladder removal but due to her complex medical history it was not advised to have elective surgery done. I do believe she is experiencing biliary colic. Patient was discharged in stable condition. Lab Data 07/11/25 19:45 07/11/25 19:45 Radiology Impressions Abdomen/Pelvis CT 07/11/25 21:19 IMPRESSION: 1. Relatively stable appearing 8.8 cm right adnexal cyst. If clinical concern for ovarian torsion is present, recommend pelvic sonogram with Doppler evaluation. 2. Corpus luteal cyst of the left ovary. 3. Appropriately seated IUD without complication. 4. Otherwise, no acute process in the abdomen or pelvis to explain the patient's symptoms. Transvaginal US 07/12/25 01:01 IMPRESSION: 1. Normal arterial blood flow confirmed to both ovaries. No torsion. 2. Normal venous blood flow confirmed in both ovaries. No evidence of torsion. IMPRESSION: 1. Mildly increased size of the 8.8 cm simple right ovarian cyst with comparison to 02/09/2025. 2. Mildly decreased size of the complex left adnexal lesion with comparison to 02/09/2025. Given long-term persistence, consider MRI pelvis with and without contrast for definitive characterization. 3. Appropriately seated IUD without complication. 4. Small volume free pelvic fluid. Laboratory Results WBC 9.63 10^3/uL (3.29-11.43) 07/11/25 19:45 RBC 4.38 10^6/uL (3.85-5.65) 07/11/25 19:45 Hgb 12.30 g/dL (11.27-16.99) 07/11/25 19:45 Hct 35.6 % (36-47) L 07/11/25 19:45 MCV 81.3 fl (85-98) L 07/11/25 19:45 MCH 28.1 pg (27-33) 07/11/25 19:45 MCHC 34.6 g/dL (30-55) 07/11/25 19:45 RDW 13.2 % (12.1-15.1) 07/11/25 19:45 Plt Count 128 10^3/cmm (157-399) L 07/11/25 19:45 MPV 12.0 fL (7.4-10.4) H 07/11/25 19:45 Neut % (Auto) 57.8 % 07/11/25 19:45 Lymph % (Auto) 34.5 % 07/11/25 19:45 [place] % (Auto) 6.5 % 07/11/25 19:45 Eos % (Auto) 0.7 % 07/11/25 19:45 Baso % (Auto) 0.3 % 07/11/25 19:45 Neut # (Auto) 5.56 10^3/uL (1.8-7.7) 07/11/25 19:45 Lymph # (Auto) 3.3 10^3/uL (0.8-4.8) 07/11/25 19:45 [place] # (Auto) 0.6 10^3/uL (0.2-0.9) 07/11/25 19:45 Eos # (Auto) 0.1 10^3/uL (0.0-0.8) 07/11/25 19:45 Baso # (Auto) 0.0 10^3/uL (0.0-0.1) 07/11/25 19:45 Nucleated RBC % (auto) 0 % 07/11/25 19:45 Nucleated RBCs # 0.0 /100WBC 07/11/25 19:45 Sodium 140 mmol/L (136-145) 07/11/25 19:45 Potassium 3.4 mmol/L (3.5-5.1) L 07/11/25 19:45 Chloride 102 mmol/L (98-107) 07/11/25 19:45 Carbon Dioxide 20 mmol/L (22-29) L 07/11/25 19:45 Anion Gap 21.4 (5-19) H 07/11/25 19:45 BUN 17 mg/dL (6-20) 07/11/25 19:45 Creatinine 0.8 mg/dL (0.5-0.9) 07/11/25 19:45 GFR Calculation 88.9 mL/min (90-130) L 07/11/25 19:45 Glucose 112 mg/dL (65-115) 07/11/25 19:45 Calculated Osmolality 292 mOsm/kg (285-295) 07/11/25 19:45 Calcium 9.6 mg/dL (8.5-10.5) 07/11/25 19:45 Total Bilirubin 0.8 mg/dL (0.15-1.2) 07/11/25 19:45 AST 29 U/L (0-32) 07/11/25 19:45 ALT 15 U/L (0-33) 07/11/25 19:45 Alkaline Phosphatase 83 U/L (35-105) 07/11/25 19:45 Total Protein 7.8 g/dL (6.6-8.7) 07/11/25 19:45 Albumin 4.8 g/dL (3.5-5.2) 07/11/25 19:45 Globulin 3.0 g/dL (1.3-4.6) 07/11/25 19:45 Lipase 48 U/L (13-60) 07/11/25 19:45 HCG, Qual Negative (Negative) 07/11/25 19:45 Urine Color Yellow (Yellow) 07/11/25 22:50 Urine Appearance Clear (CLEAR) 07/11/25 22:50 Urine pH 7.5 (5-7) 07/11/25 22:50 Ur Specific [place] 1.007 (1.005-1.030) 07/11/25 22:50 Urine Protein Negative (Negative) 07/11/25 22:50 Urine Glucose (UA) Negative (Normal) 07/11/25 22:50 Urine Ketones Negative (Negative) 07/11/25 22:50 Urine Blood Negative (Negative) 07/11/25 22:50 Urine Nitrate Negative (Negative) 07/11/25 22:50 Urine Bilirubin Negative (Negative) 07/11/25 22:50 Urine Urobilinogen 1.0 mg/dL (Negative) 07/11/25 22:50 Ur Leukocyte Esterase Negative (Negative) 07/11/25 22:50 Urine RBC 0-2 /hpf (0-2) 07/11/25 22:50 Urine WBC 0-5 /hpf (0-5) 07/11/25 22:50 Ur Squamous Epith Cells 0-5 /hpf (0-5) 07/11/25 22:50 Amorphous Sediment Not Reportable 07/11/25 22:50 Urine Bacteria None seen /hpf (NONE) 07/11/25 22:50 Hyaline Casts 0.40 /lpf 07/11/25 22:50 All radiology interpretation(s) finalized by discharge EKG Data EKG 1: Interpretation: Normal sinus rhythm with a heart rate of 81, normal axis, short SC, incomplete RBBB morphology, no STEMI. Computer generated interpretation: Abdomen/Pelvis CT 07/11/25 21:19 IMPRESSION: 1. Relatively stable appearing 8.8 cm right adnexal cyst. If clinical concern for ovarian torsion is present, recommend pelvic sonogram with Doppler evaluation. 2. Corpus luteal cyst of the left ovary. 3. Appropriately seated IUD without complication. 4. Otherwise, no acute process in the abdomen or pelvis to explain the patient's symptoms. Transvaginal US 07/12/25 01:01 IMPRESSION: 1. Normal arterial blood flow confirmed to both ovaries. No torsion. 2. Normal venous blood flow confirmed in both ovaries. No evidence of torsion. IMPRESSION: 1. Mildly increased size of the 8.8 cm simple right ovarian cyst with comparison to 02/09/2025. 2. Mildly decreased size of the complex left adnexal lesion with comparison to 02/09/2025. Given long-term persistence, consider MRI pelvis with and without contrast for definitive characterization. 3. Appropriately seated IUD without complication. 4. Small volume free pelvic fluid. Discharge Plan Discharge Patient Disposition: Home Clinical Impression: Biliary colic, Ovarian cyst, right, Complex cyst of left ovary Condition: Stable Prescriptions: No Action valacyclovir 1 gram tablet 1,000 mg PO DAILY 30 Days Qty: 30 11RF mycophenolate mofetil 500 mg tablet 500 mg PO DAILY Qty: 60 1RF Rx Instructions: take once daily hydroxychloroquine 200 mg tablet 400 mg PO DAILY Qty: 60 1RF Rx Instructions: take two tabs once daily potassium chloride 10 mEq capsule, extended release 10 meq PO DAILY Qty: 30 11RF Entresto 24-26 mg tablet 1 tab PO BID Qty: 60 11RF enoxaparin [Lovenox] 60 mg/0.6 mL syringe 60 mg SUBCUT Q12H 30 Days Qty: 36 5RF Rx Instructions: INJECT 1 SYRINGE 60MG (0.6ML) SUBCUTANEOUSLY TWICE DAILY cyclobenzaprine 5 mg tablet 5 mg PO TID PRN (Reason: muscle spasm) Qty: 45 0RF carvedilol 3.125 mg tablet 3.125 mg PO BID Qty: 60 11RF buspirone 10 mg tablet 10 mg PO BID PRN (Reason: insomnia or anxiety) Qty: 60 0RF bumetanide 1 mg tablet 1 mg PO DAILY Qty: 30 11RF Discharge Orders: Discharge ED (Routine); Ordered 07/12/25 Ordered By: Moni Rosario Referrals: Ortiz Berger NP [Primary Care Provider, Family Practice] Patient Instructions: Abdominal Pain (ED), Opioid Safety, Pain Management, Patient Portal & Zackary Instructions, Ovarian Cyst (ED) Activity Restrictions/Additional Instructions: Please continue to monitor your condition closely at home. Take Ibuprofen 400mg and Tylenol 500-1000mg every six hours for pain and inflammation. If your condition worsens or additional concerns arise, please return promptly to the emergency department for reassessment. Follow up with your primary care doctor in one week. Talk to your doctor about results of your ultrasound; talk to your doctor about considering MRI of the abdomen. Ultrasound results: 1. Mildly increased size of the 8.8 cm simple right ovarian cyst with comparison to 02/09/2025. 2. Mildly decreased size of the complex left adnexal lesion with comparison to 02/09/2025. Given long-term persistence, consider MRI pelvis with and without contrast for definitive characterization. 3. Appropriately seated IUD without complication. 4. Small volume free pelvic fluid. Print Language: Citizen Of [place] Coding Level of Care Code ED Functional Mental Disability Teacher for Elizabeth Powers
--- OUTSIDE RECORDS SUMMARY | 2025-07-11 20:15 | XMS_ITS | Patient Health Record ---
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 Name Role Phone Genaro Wilson MD Unavailable Unavailable Genaro Wilson Unavailable [phone] Allergies No Known Allergies Reason For Referral Reason Bilateral carotid ul trasound for Lili consult - [place] Referral Organization [facility] Referring Provider First Name Genaro Referring Provider Last Name Lili Referring Provider Speciality Thoracic S urgery Referred Provider Pre-Certification, D epartment General Notes Thais Goff 025 11:29:36 AM GRAVE DIGGER > Bilateral carotid ultrasound for Lili consult - Task back to [place]-----No pa required per bcbs zkz and exx. not site specific Referral Priority Routine Reason [email or web address] contact at:[phone] / UMR Echo for lili Consult/ Clair delmont Referral Organization [facility] Referring Provider First Name Genaro Referring Provider Last Name Lili Referring Provider Speciality Thoracic S urgery Referred Provider Pre-Certification, D epartment General Notes Britt Lazo 12/14/2024 05:39:55 PM CDT > for; to (do) Centers - closed now. We can call back in the morning.Violet Mindy 12/15/2024 12:36:59 PM CDT > Echo for lili Consult/ Clair delacruz - code: 34986 - no pa req'd, not site specific per [employer] & secondary insurance UMR Referral Priority Urgent Reason [email or web address] - #[id number] - 12/21 UMR -no pa req'd - 12/21 CT CHEST w/o for Lili Kirk/ Clair Delacruz Referral Organization [facility] Referring Provider First Name Genaro Referring Provider Last Name Lili Referring Provider Speciality Thoracic S urgery Referred Provider Pre-Certification, Henrik bangrtcheri General Notes Britt Lazo 12/14/2024 05:39:30 PM CDT > [facility] contact at:[phone] closed now., We can call back in the morning., Britt Lazo 12/15/2024 03:36:43 PM CDT > CT CHEST w/o for Lili Bradley/ Clair Delacruz - code: 27548 - pending with [employer] with case#[id number] - ph#[phone]/fax#[phone], Britt Lazo 12/15/2024 03:58:59 PM CDT > CT CHEST w/o for Lili Bradley/ Clair Delacruz - code: 10737 - no pa req'd, not site specific per UMR, Cuong Lazoy 12/16/2024 03:24:54 PM CDT > Per [employer] - No fax back, still pending at this time., Britt Lazo 12/21/2024 10:11:39 AM CDT > CT CHEST w/o for Lili Bradley/ Clair Delacruz - code: 69008 - approved, not site specific per [facility] - with auth#[id number] Clinical Notes Britt Lazo 12/21/2024 10:11:48 AM CDT > CT CHEST w/o for Lili Bradley/ Clair Delacruz - code: 09572 - no pa req'd, not site specific per UMR, Cuong Lazoy 12/21/2024 10:11:55 AM CDT > CT CHEST w/o for Lili Bradley/ Clairra Delacruz - code: 13472 - approved, not site specific per [facility] - with auth#[id number] Referral Priority Stat Medications Medication SIG (Take, Route, Frequency, Duration) Notes Start Date End Date Status Famotidine 20 MG Tablet 1 tablet Orally Once a day 11/04/2024 Active Enoxaparin Sodium 60 MG/0.6M L Solution Prefilled Syringe as directed Injection every 12 hrs for 30 days Active Carvedilol 3.125 MG Tablet 1 tablet with food Orally Twice a day; Duration: 30 day(s) Active Mycophenolate Mofetil 500 MG Tablet 1 tablet Orally daily Active Hydroxychloroquine Sulfate 2 00 MG Tablet as directed Orally twice daily Active Entresto 24/26 mg Tablet Daily Oral twice daily Active Bumex 0.5 MG Tablet 1 tablet Orally 1 mg Once a day Active Potassium Chloride ER 10 MEQ Tablet Extended Release 1 tablet with food Orally Once a day Active Social History Tobacco Use: Social History Observation Description Date Details (start date - stop date) Never Smoker NA - NA Social History Drugs/Alcohol: Social Info Question Answer Notes Alcohol Screen Did you have a drink containing alcohol in the past year? Yes Points 0 Interpretation Negative Tobacco Use: Social Info Question Answer Notes Tobacco Use/Smoking Smoking Status: nonsmoker Problems Problem Type SNOMED Code ICD Code Onset Dates Problem Status W/U Status Risk Notes Problem Mitral valve disorder (98304998) Mitral valve insufficiency, unspecified etiology (I34.0) Active confirmed Problem Severe mitral valve regurgitation (144381773) Severe mitral valve regurgitation (I34.0) Active confirmed Vital Signs Oximetry 99 % 11/14/2024 Blood pressure diastolic 72 mm Hg 11/14/2024 Height 70 in 11/14/2024 Blood pressure systolic 112 mm Hg 11/14/2024 Weight 186 lbs 11/14/2024 BMI 26.69 kg/m2 11/14/2024 Encounters Encounter Location Date Provider Diagnosis [address] [place] [id number] 11/14/2024 Genaro Wilson Mitral valve insufficiency, unspecified etiology I34.[address] [place], [place] [id number] 12/14/2024 Genaro Wilson Severe mitral valve regurgitation I34.0 and Mitral valve insufficiency, unspecified etiology I34.[address] [place] [id number] 10/17/2024 Genaro Wilson Mitral valve insufficiency, unspecified etiology I34.0 and Encounter for other preprocedural examination Z01.818 [address] [place] [id number] 11/07/2024 Assessments Encounter Date Diagnosis (ICD Code) Assessment Notes Treatment Notes Treatment Clinical Notes Section Notes 12/14/2024 Mitral valve insufficiency, unspecified etiology (ICD-10 - I34.0) 12/14/2024 Severe mitral valve regurgitation (ICD-10 - I34.0) 11/14/2024 Mitral valve insufficiency, unspecified etiology (ICD-10 - I34.0) Patient Educated with: CV Surgery Blood Pressue Log.pdf (CV Surgery Blood Pressue Log.pdf) Patient Educated with: CV Surgery Cardiac Rehab Education.pdf (CV Surgery Cardiac Rehab Education.pdf ) Patient Educated with: CV Surgery Minimally Invasive Education.pdf (CV Surgery Minimally Invasive Education.pdf ) Patient Educated with: CV Surgery Sternotomy Education.pdf (CV Surgery Sternotomy Education.pdf ) Patient Educated with: CV Surgery Valve Education.pdf (CV Surgery Valve Education.pdf ) will obtain Left heart catheterization and CT Chest w/o. 10/17/2024 Mitral valve insufficiency, unspecified etiology (ICD-10 - I34.0) 10/17/2024 Encounter for other preprocedural examination (ICD-10 - Z01.818) Plan Of Treatment Future Test Test Name Order Date Ultrasound - Carotid Duplex, Bilateral 0 10/17/2024 Cath - Left Heart Catheterization (Radia l Approach) 11/16/2024 CT - Chest without Contrast 11/16/2024 Echo - 2D Echo (with 3D if indicated) CT - Chest without Contrast 12/14/2024 Echo - 2D Echo (with 3D if indicated) Insurance Providers Payer Name Payer Address Payer Phone Subscriber Number Group Number Insured Name Patient Relationship to Insured Coverage Start Date Coverage End Date [employer] [place] [address] [place] [phone] [id number] Gerson Shrestha Self - patient is the insured [address] [address] [place] [address] [phone] [id number] Gerson Shrestha Self - patient is the insured Medical (General) History Medical History History ICD Code Lupus History of bicuspid aortic valve antiphospholipid syndrome endocarditis periaortic abscess with aortic rupture, s/p surgery atrial fibrillation Mitral regurgitation CAD S/p CABG x1V 11/2022 S/p [place] procedure 12/05/2022 Surgical History Surgery Date(Month/Year) s/p aortic valve replacement with biopro sthetic valve adenoidectomy tonsillectomy
[2025-07-11 20:19] LABS: Hematocrit 35.6 % (36-47); Hemoglobin 12.30 g/dL (11.27-16.99); Mean Corpuscular HGB Conc 34.6 g/dL (30-55); Mean Corpuscular Hemoglobin 28.1 pg (27-33); Mean Corpuscular Volume 81.3 fl (85-98); Nucleated Red Blood Cells % 0 %; Platelet Count 128 10^3/cmm (157-399); Red Blood Count 4.38 10^6/uL (3.85-5.65); White Blood Count 9.63 10^3/uL (3.29-11.43)
[2025-07-11 20:55] LABS: Alanine Aminotransferase 15 U/L (0-33); Albumin Level 4.8 g/dL (3.5-5.2); Alkaline Phosphatase 83 U/L (35-105); Anion Gap 21.4 (5-19); Aspartate Amino Transferase 29 U/L (0-32); Blood Urea Nitrogen 17 mg/dL (6-20); Calcium 9.6 mg/dL (8.5-10.5); Carbon Dioxide 20 mmol/L (22-29); Chloride 102 mmol/L (98-107); Creatinine Clr Calc Pharmacy 126.0346; Globulin 3.0 g/dL (1.3-4.6); Glucose 112 mg/dL (65-115); Lipase 48 U/L (13-60); Osmolality Calculated 292 mOsm/kg (285-295); Potassium 3.4 mmol/L (3.5-5.1); Sodium 140 mmol/L (136-145); Total Protein 7.8 g/dL (6.6-8.7)
--- NOTE | 2025-07-11 21:19 | CTR_ITS ---
PROCEDURE INFORMATION: Exam: CT Abdomen And Pelvis With Contrast Exam date and time: 07/11/2025 11:20 PM Age: 25 years old Clinical indication: Vomiting; Abdominal pain; Prior surgery; Surgery date: 6+ months; Surgery type: Open heart SX in 2022. Iud placed July 2024. ; Additional info: Ruq pain TECHNIQUE: Imaging protocol: Computed tomography of the abdomen and pelvis with contrast. Radiation optimization: All CT scans at this facility use at least one of these dose optimization techniques: automated exposure control; mA and/or kV adjustment per patient size (includes targeted exams where dose is matched to clinical indication); or iterative reconstruction. Contrast material: OMNI 350; Contrast volume: 100 ml; Contrast route: INTRAVENOUS (IV); COMPARISON: US gall bladder [id number] 04/05/2025 10:30 PM, pelvic sonogram dated 01/06/2025 RADIATION DOSE METRICS: Total DLP (mGy-cm): 682.13 FINDINGS: Tubes, catheters and devices: Abandoned epicardial pacing leads are noted. Liver: Normal. No mass. Gallbladder and biliary ducts: Gallbladder polyps are better characterized on prior abdominal sonogram from 04/05/2025. The gallbladder is otherwise normal without wall thickening, pericholecystic fluid, or stones. Pancreas: Normal. No ductal dilation. Spleen: Normal. No splenomegaly. Adrenal glands: Normal. No mass. Kidneys and ureters: Normal. No hydronephrosis. Stomach and bowel: Unremarkable. No obstruction. No mucosal thickening. Appendix: The appendix is normal. Intraperitoneal space: See Reproductive finding. Vasculature: Unremarkable. No abdominal aortic aneurysm. Lymph nodes: Unremarkable. No enlarged lymph nodes. Urinary bladder: Unremarkable as visualized. Reproductive: A 2.9 cm crenulated cyst is seen in the left ovary. Relatively stable appearance of a simple right adnexal cyst measuring up to 8.8 cm (allowing for differences in acquisition in modality). Small volume free pelvic fluid is noted. However, no substantial paraovarian inflammation is present. An intrauterine device is appropriately seated. No evidence of migration, expulsion, embedment, or perforation. Bones/joints: Pectus excavatum is noted. Soft tissues: Unremarkable. CT/CT abdomen pelvis w con* [id number] IMPRESSION: 1. Relatively stable appearing 8.8 cm right adnexal cyst. If clinical concern for ovarian torsion is present, recommend pelvic sonogram with Doppler evaluation. 2. Corpus luteal cyst of the left ovary. 3. Appropriately seated IUD without complication. 4. Otherwise, no acute process in the abdomen or pelvis to explain the patient's symptoms.
[2025-07-11] MEDS: morphine 4 mg/mL SDV 1 mL IVP (21:44)
[2025-07-11 22:42] LABS: HCG, Serum Qual Negative (Negative)
[2025-07-11 22:54] LABS: Glucose Urine UA Negative (Normal); Nitrate Urine Negative (Negative); Specific Gravity, Urine 1.007 (1.005-1.030)
[2025-07-11 22:59] LABS: Add Urine Microscopic? YES
[2025-07-11] MEDS: iohexol 350 mg/mL 500 mL Btl (per mL) IV (23:34)
[2025-07-12] VITALS: BP 101/66; PULSE 71; O2SAT 100
[2025-07-12 00:30] VITALS: BP 101/66; PULSE 71; O2SAT 100
[2025-07-12 01:00] VITALS: BP 111/66; PULSE 70; O2SAT 99
--- NOTE | 2025-07-12 01:01 | USR_ITS ---
PROCEDURE INFORMATION: Exam: US Duplex Artery and Vein of the Abdominal and/or Reproductive Organs. Complete Ovaries Exam date and time: 07/12/2025 1:28 AM Age: 25 years old Clinical indication: Condition or disease; Other: Negative hcg. 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 Prior surgery; Surgery date: 6+ months; Surgery type: Negative hcg. 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 ; Additional info: Abd pain, right sided, large cyst, R/O ovarian torsion TECHNIQUE: Imaging protocol: Real-time duplex ultrasound scan of the arterial and venous flow with color Doppler flow and spectral waveform analysis with image documentation. Duplex exam was performed to evaluate for torsion and other vascular conditions. COMPARISON: US pelvis lmt w transvag 01/06/2025 5:01 AM FINDINGS: Right ovary/adnexa: Confirmed right ovarian blood flow. Normal arterial inflow and spectral sonography. Confirmed right ovarian blood flow. Normal venous outflow and spectral sonography. Left ovary/adnexa: Confirmed left ovarian blood flow. Normal arterial inflow on spectral sonography. Confirmed left ovarian blood flow. Normal venous outflow on spectral sonography. PROCEDURE INFORMATION: Exam: US Pelvis Transabdominal, Limited, and US Pelvis Transvaginal, Non-Obstetric Exam date and time: 07/12/2025 1:28 AM Age: 25 years old Clinical indication: Condition or disease; Other: Negative hcg. 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 Prior surgery; Surgery date: 6+ months; Surgery type: Negative hcg. 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 ; Additional info: Abd pain, right sided, large cyst, R/O ovarian torsion TECHNIQUE: Imaging protocol: Real-time transabdominal and transvaginal pelvic ultrasound (non-obstetric) with image documentation. Transabdominal imaging is limited. Transvaginal imaging was used for better evaluation of the endometrium, adnexa, and/or cervix. COMPARISON: US transvaginal [id number] 02/09/2025 2:28 PM FINDINGS: Uterus: The uterus is anteverted. An intrauterine device is appropriately seated. No evidence of migration, expulsion, embedment, or perforation. The uterus measures 8.5 x 4.7 x 5.1 cm. Right ovary/adnexa: The right ovary measures 8.8 x 6.0 x 9.1 cm with a volume of 250 mL. Redemonstrated right ovarian simple cyst measuring 8.1 x 5.7 x 7.8 cm, previously 7.9 x 5.3 x 6.9 cm. Sanchez are thin and imperceptible. Anechoic internal fluid contents. No nodularity. No internal color Doppler flow or calcification. Left ovary/adnexa: The left ovary measures 2.6 x 4.7 x 2.2 cm with a volume of 14 mL. Redemonstrated heterogeneously echoic left adnexal lesion measuring 2.8 x 2.2 x 2.2 cm, previously 3.6 x 2.6 x 3.5 cm. No substantial internal color Doppler flow. No calcification. Urinary bladder: Urinary bladder is limited. Intraperitoneal space: Small volume simple attenuating free pelvic fluid is noted. US/US transvaginal [id number] IMPRESSION: 1. Normal arterial blood flow confirmed to both ovaries. No torsion. 2. Normal venous blood flow confirmed in both ovaries. No evidence of torsion. IMPRESSION: 1. Mildly increased size of the 8.8 cm simple right ovarian cyst with comparison to 02/09/2025. 2. Mildly decreased size of the complex left adnexal lesion with comparison to 02/09/2025. Given long-term persistence, consider MRI pelvis with and without contrast for definitive characterization. 3. Appropriately seated IUD without complication. 4. Small volume free pelvic fluid.
[2025-07-12 01:30] VITALS: BP 108/73; PULSE 73; O2SAT 100
[2025-07-12 02:30] VITALS: BP 95/61; PULSE 65; O2SAT 98
[2025-07-12] MEDS: metoclopramide 5 mg/mL SDV 2 mL 10 MG IVP (03:06)
== END 2025-07-12 03:26 | disposition home or self-care (01) ==
PROVIDERS: Emergency Provider Emergency Medicine; PCP Clinical Nurse Specialist Adult Health
DX: K80.50 Calculus of bile duct without cholangitis or cholecystitis without obstruction (principal); N83.201 Unspecified ovarian cyst, right side; N83.292 Other ovarian cyst, left side; F17.290 Nicotine dependence, other tobacco product, uncomplicated; Z95.1 Presence of aortocoronary bypass graft; I50.9 Heart failure, unspecified
CPT/HCPCS: 74177; 76830; 80053; 81001; 83690; 84703; 85025; 93005; 96361; 96374; 96375; 99285; J1885; J2270; J2765; J7120; Q0162

== ENCOUNTER 2025-07-25 12:54 | Oncology outpatient (recurring) (ONCR) | payer OTHER, SELFPAY ==
[2025-07-25 13:56] LABS: Hematocrit 33.0 % (36-47); Hemoglobin 11.00 g/dL (11.27-16.99); Mean Corpuscular HGB Conc 33.3 g/dL (30-55); Mean Corpuscular Hemoglobin 28.7 pg (27-33); Mean Corpuscular Volume 86.2 fl (85-98); Nucleated Red Blood Cells % 0 %; Platelet Count 113 10^3/cmm (157-399); Red Blood Count 3.83 10^6/uL (3.85-5.65); White Blood Count 6.69 10^3/uL (3.29-11.43)
[2025-07-25 14:17] LABS: Alanine Aminotransferase 31 U/L (0-33); Albumin Level 4.1 g/dL (3.5-5.2); Alkaline Phosphatase 91 U/L (35-105); Anion Gap 15.9 (5-19); Aspartate Amino Transferase 22 U/L (0-32); Blood Urea Nitrogen 11 mg/dL (6-20); Calcium 8.8 mg/dL (8.5-10.5); Carbon Dioxide 21 mmol/L (22-29); Chloride 105 mmol/L (98-107); Ferritin 42 ng/mL (15-150); Globulin 2.7 g/dL (1.3-4.6); Glucose 125 mg/dL (65-115); Iron 68 ug/dL (37-145); Osmolality Calculated 287 mOsm/kg (285-295); Potassium 3.9 mmol/L (3.5-5.1); Sodium 138 mmol/L (136-145); Total Iron Binding Capacity 283 mcg/dl; Total Protein 6.8 g/dL (6.6-8.7); Unsaturated Iron Binding 215 ug/dL (112-347)
--- NOTE | 2025-07-25 15:00 | USCV_ITS ---
Gerson Shrestha Age: 25 Gender: F : 2000 Exam Date: 07/25/2025 15:08 Ordering Phys: Andrei Hatfield M.D ([email or web address]) Technologist: [place] [facility] [place]: ao pros BP: 133 / 73 HR: 78 Rhythm: Sinus Technical Quality: MEASUREMENTS (Male / Female) Normal Values 2D ECHO LV Diastolic Diameter PLAX 5.6 cm 4.2 - 5.9 / 3.9 - 5.3 cm IVS Diastolic Thickness 1.3 cm 0.6 - 1.0 / 0.6 - 0.9 cm IVS Systolic Thickness 1.7 cm LVPW Diastolic Thickness 1.3 cm 0.6 - 1.0 / 0.6 - 0.9 cm LVPW Systolic Thickness 1.7 cm LVOT Diameter 2.1 cm LV Ejection Fraction 2D Teich 50.7 % LV Ejection Fraction MOD 4C 58.7 % LV Ejection Fraction MOD 2C 65.0 % LV Ejection Fraction 2C AL 66.1 % LA Diameter 3.0 cm RA Systolic Volume 4C AL 45.2 ml RA Systolic Volume 4C MOD 43.8 ml Aorta at Sinotubular Diameter 2.8 cm IVC Diameter 1.5 cm M-MODE LA Ao Ratio MM 1.2 AV Cusp Separation MM 2.1 cm DOPPLER AV Peak Velocity 167.0 cm/s LVOT Peak Velocity 91.0 cm/s AV Area Cont Eq vti 1.9 cm squared AV Area Cont Eq pk 1.9 cm squared MV Area PHT 3.6 cm squared Mitral E to A Ratio 2.1 TV Peak Velocity 297.0 cm/s TR Peak Velocity 543.0 cm/s TR Peak Gradient 117.9 mmHg TV Peak E Velocity 218.0 cm/s PV Peak Velocity 75.0 cm/s FINDINGS Left Ventricle Left ventricle is midly dilated. LV systolic function is normal with EF of 55-60%. No regional wall motion abnormalities are seen. Right Ventricle Normal in size and function Right Atrium Normal in size Left Atrium Dilated IA Septum Grossly normal Mitral Valve Restricted motion of posterior mitral valve leaflet. Moderate to severe posteriorly directed eccenteric mitral regurgitation. Aortic Valve Normally functioning bioprosthetic aortic valve. No significant stenosis. Trace aortic regurgitation Tricuspid Valve Mild tricuspid regurgitation. Pulmonary artery systolic pressure is normal. Pulmonic Valve Not well visualized Pericardium Normal Aorta Normal in size IVC Appears to be normal CONCLUSIONS LV systolic function is normal with EF of 55-60% Left atrial dilation Restricted motion of posterior mitral valve leaflet. Moderate to severe posteriorly directed eccenteric mitral regurgitation. (Appears more significant on Transesophageal echocardiogram) Normally functioning bioprosthetic aortic valve. Trace aortic regurgitation Mild tricuspid regurgitation. Andrei Hatfield MD (Electronically Signed) Final Date: 05 August 2025 11:58 S
[2025-07-27 16:24] LABS: Lupus DRVVT 1:1 Mix NOT CORRECTED (CORRECTED); Lupus DRVVT Confirm POSITIVE (NEGATIVE); Lupus Hexagonal Phas Confirm POSITIVE (NEGATIVE); Lupus Thrombin Clotting Time 16 sec (13-19); PTT-LA-Screen 82 sec (< OR = 40)
[2025-07-28 06:39] LABS: Anti-Cardiolipin IgA AB 2.1 APL-U/mL
== END 2025-08-20 23:59 | disposition home or self-care (01) ==
PROVIDERS: Internal Medicine; PCP Clinical Nurse Specialist Adult Health; Visit Provider Nurse Practitioner
DX: I34.0 Nonrheumatic mitral (valve) insufficiency (principal); Z95.3 Presence of xenogenic heart valve; M32.9 Systemic lupus erythematosus, unspecified; I51.7 Cardiomegaly; R93.1 Abnormal findings on diagnostic imaging of heart and coronary circulation; I07.1 Rheumatic tricuspid insufficiency
CPT/HCPCS: 36415; 80053; 82728; 83010; 83540; 83550; 83615; 85025; 85378; 85613; 85730; 86146; 86147; 93306

== ENCOUNTER 2025-09-01 17:57 | Emergency (ER) | payer OTHER, SELFPAY ==
[2025-09-01] VITALS (7 sets, daily range): BP systolic 106–123; BP diastolic 72–85; PULSE 67–86; RESP 16–17; TEMP 36.8; O2SAT 99–100; BMI 28.3
--- OUTSIDE RECORDS SUMMARY | 2025-09-01 18:02 | XMS_ITS | Data Portability ---
Author Organization [place] [facility], [place] [facility] Address [address] [facility] [address] [place] [address] Assessment No assessment recorded. Plan of Treatment Reminders Order Date Submit Date Provider Last Modified By Organization Details Last Modified Time Details Appointments None recorded. Lab infectious disease panel 2023 [facility], [address], [place], [address], 12:27:50 Referral None recorded. Procedures None recorded. Surgeries None recorded. Imaging None recorded. Medication Orders valacyclov ir 1 gram tablet 2023 [facility] [address] [place], [address], 10:29:18 Patient TargetsNo targets recorded. Patient InstructionsNo instructions recorded. Reason for Referral None Reported. Results Created Date Observation Date Name Description Value Unit Range Abnormal Flag Note LastModifiedBy Organization Detail LastModifiedTime 04/15/2004/16/2024 GENIT OURIN MIKE INFEC TION + LESIO NS acinetobacte r baumannii 0.000 ppm 19.961 - 24.689 normal Not Detec najma Not Available [facility] [address], [place], [address], 04/16/2024 12:27:50 04/15/20 24 04/16/2024 GENIT OURIN MIKE INFEC TION + LESIO NS atopobium vaginae 0.000 ppm 19.961 - 24.689 normal Not Detec najma Not Available [facility] [address], [place], [address], 04/16/2024 12:27:50 04/15/20 24 04/16/2024 GENIT OURIN MIKE INFEC TION + LESIO NS bvab 2,3 (bacterial vaginosis associated bacteria 2, 3); mobiluncus spp 25.439 ppm 19.961 - 24.689 abnormal Detec najma Not Available [facility] [address], [place], [address], 04/16/2024 12:27:50 04/15/20 24 04/16/2024 GENIT OURIN MIKE INFEC TION + LESIO NS brook albicans, parapsilosis , tropicalis 0.000 ppm 19.961 - 30.770 normal Not Detec najma Not Available [facility] [address], [place], [address], 04/16/2024 12:27:50 04/15/20 24 04/16/2024 GENIT OURIN MIKE INFEC TION + LESIO NS brook glabrata 0.000 ppm 23.000 - 32.138 normal Not Detec najma Not Available [facility] [address], [place], [address], 04/16/2024 12:27:50 04/15/20 24 04/16/2024 GENIT OURIN MIKE INFEC TION + LESIO NS brook krusei 0.000 ppm 23.000 - 32.271 normal Not Detec najma Not Available [facility] [address], [place], [address], 04/16/2024 12:27:50 04/15/20 24 04/16/2024 GENIT OURIN MIKE INFEC TION + LESIO NS chlamydia trachomatis 0.000 ppm 23.000 - 31.467 normal Not Detec najma Not Available [facility] [address], [place], [address], 04/16/2024 12:27:50 04/15/20 24 04/16/2024 GENIT OURIN MIKE INFEC TION + LESIO NS citrobacter freundii 0.000 ppm 19.961 - 24.689 normal Not Detec najma Not Available [facility] [address], [place], [address], 04/16/2024 12:27:50 04/15/20 24 04/16/2024 GENIT OURIN MIKE INFEC TION + LESIO NS enterobacter aerogenes, cloacae 0.000 ppm 19.961 - 24.689 normal Not Detec najma Not Available [facility] [address], [place], [address], 04/16/2024 12:27:50 04/15/20 24 04/16/2024 GENIT OURIN MIKE INFEC TION + LESIO NS enterococcus faecalis, faecium 0.000 ppm 19.961 - 24.689 normal Not Detec najma Not Available [facility] [address], [place], [address], 04/16/2024 12:27:50 04/15/20 24 04/16/2024 GENIT OURIN MIKE INFEC TION + LESIO NS escherichia coli 0.000 ppm 19.961 - 24.689 normal Not Detec najma Not Available [facility] [address], [place], [address], 04/16/2024 12:27:50 04/15/20 24 04/16/2024 GENIT OURIN MIKE INFEC TION + LESIO NS gardnerella vaginalis 30.859 ppm 19.961 - 24.689 abnormal Detec najma Not Available [facility] [address], [place], [address], 04/16/2024 12:27:50 04/15/20 24 04/16/2024 GENIT OURIN MIKE INFEC TION + LESIO NS haemophilus ducreyi 0.000 ppm 23.000 - 31.643 normal Not Detec najma Not Available [facility] [address], [place], [address], 04/16/2024 12:27:50 04/15/20 24 04/16/2024 GENIT OURIN MIKE INFEC TION + LESIO NS herpes simplex virus 1 0.000 ppm 23.000 - 32.355 normal Not Detec najma Not Available [facility] [address], [place], [address], 04/16/2024 12:27:50 04/15/20 24 04/16/2024 GENIT OURIN MIKE INFEC TION + LESIO NS herpes simplex virus 2 14.470 ppm 23.000 - 31.433 abnormal Detec najma Not Available [facility] [address], [place], [address], 04/16/2024 12:27:50 04/15/20 24 04/16/2024 GENIT OURIN MIKE INFEC TION + LESIO NS klebsiella pneumoniae, oxytoca 0.000 ppm 19.961 - 24.689 normal Not Detec najma Not Available [facility] [address], [place], [address], 04/16/2024 12:27:50 04/15/20 24 04/16/2024 GENIT OURIN MIKE INFEC TION + LESIO NS megasphaera (types 1, 2) 0.000 ppm 19.961 - 24.689 normal Not Detec najma Not Available [facility] [address], [place], [address], 04/16/2024 12:27:50 04/15/20 24 04/16/2024 GENIT OURIN MIKE INFEC TION + LESIO NS morganella morganii 0.000 ppm 19.961 - 24.689 normal Not Detec najma Not Available [facility] [address], [place], [address], 04/16/2024 12:27:50 04/15/20 24 04/16/2024 GENIT OURIN MIKE INFEC TION + LESIO NS human monkeypox virus 0.000 ppm 23.000 - 32.544 normal Not Detec najma Not Available [facility] [address], [place], [address], 04/16/2024 12:27:50 04/15/20 24 04/16/2024 GENIT OURIN MIKE INFEC TION + LESIO NS neisseria gonorrhoeae 0.000 ppm 23.000 - 32.117 normal Not Detec najma Not Available [facility] [address], [place], [address], 04/16/2024 12:27:50 04/15/20 24 04/16/2024 GENIT OURIN MIKE INFEC TION + LESIO NS proteus mirabilis, vulgaris 0.000 ppm 19.961 - 24.689 normal Not Detec najma Not Available [facility] [address], [place], [address], 04/16/2024 12:27:50 04/15/20 24 04/16/2024 GENIT OURIN MIKE INFEC TION + LESIO NS pseudomonas aeruginosa 0.000 ppm 19.961 - 24.689 normal Not Detec najma Not Available [facility] [address], [place], [address], 04/16/2024 12:27:50 04/15/20 24 04/16/2024 GENIT OURIN MIKE INFEC TION + LESIO NS serratia marcescens 0.000 ppm 19.961 - 24.689 normal Not Detec najma Not Available [facility] [address], [place], [address], 04/16/2024 12:27:50 04/15/20 24 04/16/2024 GENIT OURIN MIKE INFEC TION + LESIO NS staphylococc us aureus 0.000 ppm 19.961 - 24.689 normal Not Detec najma Not Available [facility] [address], [place], [address], 04/16/2024 12:27:50 04/15/20 24 04/16/2024 GENIT OURIN MIKE INFEC TION + LESIO NS streptococcu s agalactiae (group B strep) 0.000 ppm 19.961 - 24.689 normal Not Detec najma Not Available [facility] [address], [place], [address], 04/16/2024 12:27:50 04/15/20 24 04/16/2024 GENIT OURIN MIKE INFEC TION + LESIO NS streptococcu s pyogenes (group A strep) 0.000 ppm 19.961 - 24.689 normal Not Detec najma Not Available [facility] [address], [place], [address], 04/16/2024 12:27:50 04/15/20 24 04/16/2024 GENIT OURIN MIKE INFEC TION + LESIO NS treponema pallidum 0.000 ppm 23.000 - 32.426 normal Not Detec najma Not Available [facility] [address], [place], [address], 04/16/2024 12:27:50 04/15/20 24 04/16/2024 GENIT OURIN MIKE INFEC TION + LESIO NS trichomonas vaginalis 0.000 ppm 23.000 - 32.119 normal Not Detec najma Not Available [facility] [address], [place], [address], 04/16/2024 12:27:50 04/15/20 24 04/16/2024 GENIT OURIN MIKE INFEC TION + LESIO NS tet B, tet M 23.732 ppm 23.000 - 27.778 abnormal Detec najma Not Available [facility] [address], [place], [address], 04/16/2024 12:27:50 04/15/20 24 04/16/2024 GENIT OURIN MIKE INFEC TION + LESIO NS staphylococc us saprophyticu s 0.000 ppm 19.961 - 24.689 normal Not Detec najma Not Available [facility] [address], [place], [address], 04/16/2024 12:27:50 04/15/20 24 04/16/2024 GENIT OURIN MIKE INFEC TION + LESIO NS staphylococc us epidermidis, haemolyticus , lugdunensis 0.000 ppm 19.961 - 24.689 normal Not Detec najma Not Available [facility] [address], [place], [address], 04/16/2024 12:27:50 04/15/20 24 04/16/2024 GENIT OURIN MIKE INFEC TION + LESIO NS mycoplasma genitalium 0.000 ppm 19.961 - 24.689 normal Not Detec najma Not Available [facility] [address], [place], [address], 04/16/2024 12:27:50 04/15/20 24 04/16/2024 GENIT OURIN MIKE INFEC TION + LESIO NS mycoplasma hominis 0.000 ppm 19.961 - 24.689 normal Not Detec najma Not Available [facility] [address], [place], [address], 04/16/2024 12:27:50 04/15/20 24 04/16/2024 GENIT OURIN MIKE INFEC TION + LESIO NS ureaplasma parvum 23.034 ppm 19.961 - 24.689 abnormal Detec najma Not Available [facility] [address], [place], [address], 04/16/2024 12:27:50 04/15/20 24 04/16/2024 GENIT DMITRIY MIKE INFEC TION + LESIO NS ureaplasma urealyticum 0.000 ppm 19.961 - 24.689 normal Not Detec najma Not Available [facility] [address], [place], [address], 04/16/2024 12:27:50 04/15/20 24 04/16/2024 GENIT DMITRIY MIKE INFEC TION + LESIO NS varicella zoster virus (vzv, human herpesvirus 3) 0.000 ppm 23.000 - 31.749 normal Not Detec najma Not Available [facility] [address], [place], [address], 04/16/2024 12:27:50 Result Notes None recorded. Procedures Surgical History Date Name Laterality Status Provider Name and Address Organization Details Recorded Time repair of heart completed Karolina Merlos [facility] 04/15/2024 10:00:27 Imaging Results None recorded. Procedure Notes None recorded. Medical Equipment None Reported. Allergies No known drug allergies Medications Name Sig Start Date Stop Date Status Note LastModified by Organization Details LastModified Time valacyclovir 1 gram tablet Take 1 tablet every 12 hours by oral route for 7 days. 2023 active Not Available Not Available Not Avai lable mycophenolate mofetil 500 mg tablet Take 3 tablets twice a day by oral route. active Not Available Not Available No t Available potassium acetate active Not Available Not Available Not Available enoxaparin active Not Available Not Av ailable Not Available famotidine active Not Available Not Av ailable Not Available hydroxychloroqu ine active Not Available Not Available Not Available Carbatrol active Not Available Not Elizabeth ilable Not Available midodrine active Not Available Not Elizabeth ilable Not Available Entresto 24 mg-26 mg tablet Take 1 tablet twice a day by oral route. active Not Available Not Available No t Available Vitals Date Recorded Body height Body mass index (BMI) Body weight Oxygen saturation Heart rate Respiratory rate Body temperature Systolic And Diastolic Provider Name and Address Organization Details Last Updated DateTime 4 177.8 cm 24.7 kg/m2 50738.8 9 g 98 % 108 /min 16 /min 98.5 [degF] 140/86 mm[Hg] Karolina Merlos [facility], [place] 4 10:01:45 Social History None recorded. Functional Status Question Answer Note LastModified by Organization D etails LastModified Time Do you or have you ever used any nicotine-free cigarettes, vape, or chewing tobacco? Yes [email or web address] Information not available 04/15/2024 Mental Status None recorded. Family History Nothing Reported. Medical History No medical history recorded. Gynecological HistoryNo gynecological history recorded. Obstetrics History GPAL:G 0 P 0 0 0 0 Past Encounters Encounter ID Performer Location Encounter Start Date Encounter Closed Date Diagnosis/Indication Diagnosis SNOMED-CT Code Diagnosis ICD10 Code Diagnosis IMO Codes Diagnosis Note [id number] LUCIANA BELL [facility] ([facility]) [address] [place] [address] 04/15/2024 09:50:36 04/15/2024 11:24:24 Lesion of genitalia 334487633 N94.9 Swab obtained to test for Herpes.Dis cussed abstinence until test results received. Will start on valacyclov ir. Health Concerns Section Related Observation LastModified by Organization Detai ls LastModified Time None Recorded Concern Status LastModified by Organization Details LastModified Time None Recorded Advance Directives Directive None Recorded Payers Insurance Date Sequence Insurance Name Policy Number Policy Warren Covered Member ID Warren Member ID Guarantor Name 04/15/2024 1 [employer] [id number] [employer] Jeronimofeli [id number] Jeronimofeli Notes Date Note Type Note Provider Name and Address Organization Details Recorded Time 04/15/2024 text/html Skin LesionRepor najma by PatientROS as noted in the HPI walk in patientpatient is here today because she thinks that she has genital Herpes. Patient said in the past she was tested and it was negative but she keeps having break outs. LUCIANA BELL [address] [place] [address], [id number], [facility], [place] 04/15/2024 11:16:46 OBGyn Episode No OBEpisode recorded.
--- OUTSIDE RECORDS SUMMARY | 2025-09-01 18:03 | XMS_ITS | Patient Health Record ---
Author Organization [facility] Address [address] [place] [id number] Care Team Providers Care Director Of Agronomy Name Role Phone Genaro Wilson MD Unavailable Unavailable Genaro Wilson Unavailable [phone] Allergies No Known Allergies Reason For Referral Reason Bilateral carotid ul trasound for Lili consult - Task back to [place] Referral Organization [facility] Referring Provider First Name Genaro Referring Provider Last Name Lili Referring Provider Speciality Thoracic S urgery Referred Provider Pre-Certification, D epartment General Notes Thais Goff 025 11:29:36 AM 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 not site specific Referral Priority Routine Reason [email or web address] TPA contact at:[phone] / UMR Echo for lili Consult/ Clair yeaddiss Referral Organization [facility] Referring Provider First Name Genaro Referring Provider Last Name Lili Referring Provider Speciality Thoracic S urgery Referred Provider Pre-Certification, D epartment General Notes Britt Lazo 12/14/2024 05:39:55 PM CDT > [facility] - closed now. We can call back in the morning.Violet Mindy 12/15/2024 12:36:59 PM CDT > Echo for lili Consult/ Clair delacruz - code: 96204 - no pa req'd, not site specific per [employer] & secondary insurance UMR Referral Priority Urgent Reason [facility] TPA - #[id number] - 12/21 UMR -no pa req'd - 12/21 CT CHEST w/o for Lili Kirk/ Clair Delacruz Referral Organization [facility] Referring Provider First Name Genaro Referring Provider Last Name Lili Referring Provider Speciality Thoracic S urgery Referred Provider Pre-Certification, Henrik bangrtcheri General Notes Britt Lazo 12/14/2024 05:39:30 PM CDT > [employer] TPA contact at:[phone] closed now., We can call back in the morning., Britt Lazo 12/15/2024 03:36:43 PM CDT > CT CHEST w/o for Lili Bradley/ Clair Delacruz - code: 63439 - pending with [employer] with case#[id number] - ph#[phone]/fax#[phone], Britt Lazo 12/15/2024 03:58:59 PM CDT > CT CHEST w/o for Lili Bradley/ Clair Delacruz - code: 75801 - no pa req'd, not site specific per UMR, Cuong Lazoy 12/16/2024 03:24:54 PM CDT > Per [employer] - No fax back, still pending at this time., Britt Lazo 12/21/2024 10:11:39 AM CDT > CT CHEST w/o for Lili Bradley/ Clair Delacruz - code: 25712 - approved, not site specific per [employer] TPA - with auth#[id number] Clinical Notes Britt Lazo 12/21/2024 10:11:48 AM CDT > CT CHEST w/o for Lili Bradley/ Clair Delacruz - code: 54798 - no pa req'd, not site specific per UMR, Cuong Lazoy 12/21/2024 10:11:55 AM CDT > CT CHEST w/o for Lili Bradley/ Clairra Delacruz - code: 36735 - approved, not site specific per [employer] TPA - with auth#[id number] Referral Priority Stat Medications Medication SIG (Take, [...] Status Risk Notes Problem Mitral valve disorder (52274888) Mitral valve insufficiency, unspecified etiology (I34.0) Active confirmed Problem Severe mitral valve regurgitation (428311569) Severe mitral valve regurgitation (I34.0) Active confirmed Vital Signs Oximetry 99 % 11/14/2024 Blood pressure diastolic 72 mm Hg 11/14/2024 Height 70 in 11/14/2024 Blood pressure systolic 112 mm Hg 11/14/2024 Weight 186 lbs 11/14/2024 BMI 26.69 kg/m2 11/14/2024 Encounters Encounter Location Date Provider Diagnosis [address] [place] [id number] 11/14/2024 Genaro Wilson Mitral valve insufficiency, unspecified etiology I34.[address] [place], [place] [id number] 12/14/2024 Genaro Wilson Severe mitral valve regurgitation I34.0 and Mitral valve insufficiency, unspecified etiology I34.[address] [place] [id number] 10/17/2024 Genaro Wilson Mitral valve insufficiency, unspecified etiology I34.0 and Encounter for other preprocedural examination Z01.818 [address] [place] [id number] 11/07/2024 Assessments Encounter Date Diagnosis (ICD Code) Assessment Notes Treatment Notes Treatment Clinical Notes Section Notes 10/17/2024 Mitral valve insufficiency, unspecified etiology (ICD-10 - I34.0) 11/14/2024 Mitral valve insufficiency, [...] Left heart catheterization and CT Chest w/o. 12/14/2024 Mitral valve insufficiency, unspecified etiology (ICD-10 - I34.0) 12/14/2024 Severe mitral valve regurgitation (ICD-10 - I34.0) 10/17/2024 Encounter for other [...] Start Date Coverage End Date [employer] [address] [place] [address] [phone] [id number] Gerson Shrestha Self - patient is the insured [address] [address] [place] [address] [id number] Gerson Shrestha Self - patient is the [...]
--- NOTE | 2025-09-01 18:06 | ECG_ITS ---
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2000 Requested By: Flori Casillas Order Number: [id number] Kelsie MD: ZOILA BAÑUELOS Measurements Intervals [place] Rate: 70 P: 9 TN: 178 QRS: -11 QRSD: 117 T: 16 QT: 390 QTc: 422 Interpretive Statements SINUS RHYTHM LEFT ATRIAL ENLARGEMENT [-0.15mV P-WAVE IN V1/V2] POSSIBLE LEFT VENTRICULAR HYPERTROPHY [VOLTAGE CRITERIA PLUS LAE OR QRS WIDENING] INFERIOR MYOCARDIAL INFARCTION , PROBABLY OLD [40+ ms Q WAVE AND/OR ST/T ABNORMALITY IN II/aVF] Compared to ECG 07/11/2025 20:07:59 Atrial abnormality now present Incomplete right bundle-branch block no longer present Myocardial infarct finding still present Electronically Signed On 09-01-2025 18:33:59 RAILROAD COOK by ZOILA BAÑUELOS [email or web address]
--- NOTE | 2025-09-01 18:14 | ECG_ITS ---
[facility] Test Date: 2025-09-01 Pat Name: Gerson Shrestha Department: Room: Gender: Female Mill Work: : 2000 Requested By: Rakesh Reyes Order Number: [id number] Kelsie MD: ZOILA BAÑUELOS Measurements Intervals [place] Rate: 70 P: 9 AL: 178 QRS: -11 QRSD: 117 T: 16 QT: 390 QTc: 422 Interpretive Statements SINUS RHYTHM LEFT ATRIAL ENLARGEMENT [-0.15mV P-WAVE IN V1/V2] POSSIBLE LEFT VENTRICULAR HYPERTROPHY [VOLTAGE CRITERIA PLUS LAE OR QRS WIDENING] INFERIOR MYOCARDIAL INFARCTION , PROBABLY OLD [40+ ms Q WAVE AND/OR ST/T ABNORMALITY IN II/aVF] Compared to ECG 07/11/2025 20:07:59 Atrial abnormality now present Incomplete right bundle-branch block no longer present Myocardial infarct finding still present Electronically Signed On 09-01-2025 18:33:56 DATABASE ENGINEER by ZOILA BAÑUELOS [email or web address]
--- NOTE | 2025-09-01 18:14 | CTR_ITS ---
PROCEDURE INFORMATION: Exam: CTA Chest With Contrast Exam date and time: 09/01/2025 6:42 PM Age: 25 years old Clinical indication: Shortness of breath; Chest pressure; Prior surgery; Surgery date: 6+ months; Surgery type: Cabg. Avr; C/O chest pain with SOB. History of pe. ; Additional info: Cp SOB TECHNIQUE: Imaging protocol: Computed tomographic angiography of the chest with contrast. Exam focused on the arteries. 3D rendering (Not supervised by radiologist): MIP and/or 3D reconstructed images were created by the technologist. Total images: 496 Radiation optimization: All CT scans at this facility use at least one of these dose optimization techniques: automated exposure control; mA and/or kV adjustment per patient size (includes targeted exams where dose is matched to clinical indication); or iterative reconstruction. Contrast material: [id number]; Contrast volume: 73 ml; Contrast route: INTRAVENOUS (IV); COMPARISON: 1. CT angio chest PE protcl [id number] 05/22/2024 6:[address] ang ches abdpel [id number] 05/02/2024 1:43 AM RADIATION DOSE METRICS: Total DLP (mGy-cm): 332.14 FINDINGS: Tubes, catheters and devices: Epicardial leads are present. Pulmonary arteries: Main pulmonary artery 2.6 cm diameter, opacified (303 Hounsfield units). Pulmonary artery evaluation of good technical quality. No pulmonary embolism identified. Aorta: Aorta of normal caliber, contour, without dissection or significant aneurysmal dilatation. Lungs: Left base streaky linear opacities characteristic of atelectasis or postinflammatory parenchymal scarring. Insofar as lung bases are included within the field of view, no acute pathologic pulmonary process appreciated. Pleural spaces: No pathologic pleural thickening, significant pleural effusion or pneumothorax. Heart: Mild cardiomegaly. No pericardial fluid collection or pathologic thickening. Coronary arteries: No evidence of coronary artery atherosclerotic calcification. Esophagus: Thoracic esophageal gas may indicate reflux. Lymph nodes: No lymphadenopathy. Liver: Liver diffusely increased fat content/fatty infiltration. No focal hepatic lesions identified; subtle or isoattenuating/isointense lesions may be obscured. Pancreas: Pancreas of normal thickness and contour demonstrating no pathologic pancreatic duct dilatation as partially visualized within the field of view. Spleen: Spleen of normal contour. No pathologic mass identified to the extent visualized. Adrenal glands: Adrenal glands are normal. Bones/joints: No intrinsic osseous abnormality identified. Sternotomy wires and mediastinal surgical clips are present, consistent with previous coronary arterial bypass grafting. Mild pectus excavatum configuration of the sternum impresses upon the right pericardium Spinal column demonstrates no unexpected degenerative changes. Soft tissues: Soft tissues are normal as visualized, demonstrating no masses or swelling/induration. CT/CT angio chest PE protcl [id number] IMPRESSION: 1. No pulmonary embolism. 2. Left base streaky linear opacities characteristic of atelectasis or postinflammatory parenchymal scarring.
[2025-09-01 18:36] LABS: Hematocrit 34.1 % (36-47); Hemoglobin 10.90 g/dL (11.27-16.99); Mean Corpuscular HGB Conc 32.0 g/dL (30-55); Mean Corpuscular Hemoglobin 27.7 pg (27-33); Mean Corpuscular Volume 86.8 fl (85-98); Nucleated Red Blood Cells % 0 %; Platelet Count 142 10^3/cmm (157-399); Red Blood Count 3.93 10^6/uL (3.85-5.65); White Blood Count 8.90 10^3/uL (3.29-11.43)
[2025-09-01] MEDS: iohexol 350 mg/mL 500 mL Btl (per mL) IV (18:44)
[2025-09-01 18:51] LABS: HCG, Serum Qual Negative (Negative); Lactic Sepsis W/Reflex 0.9 mmol/L (0.5-2.2)
[2025-09-01 19:01] LABS: Alanine Aminotransferase 78 U/L (0-33); Albumin Level 4.4 g/dL (3.5-5.2); Alkaline Phosphatase 97 U/L (35-105); Anion Gap 13.8 (5-19); Aspartate Amino Transferase 23 U/L (0-32); Blood Urea Nitrogen 18 mg/dL (6-20); Calcium 9.2 mg/dL (8.5-10.5); Carbon Dioxide 25 mmol/L (22-29); Chloride 105 mmol/L (98-107); Globulin 2.6 g/dL (1.3-4.6); Glucose 88 mg/dL (65-115); NT Pro B Type Natriuretic Pept 1025 pg/mL (0-125); Osmolality Calculated 291 mOsm/kg (285-295); Potassium 3.8 mmol/L (3.5-5.1); Sodium 140 mmol/L (136-145); Total Protein 7.0 g/dL (6.6-8.7)
[2025-09-01 19:36] LABS: Respiratory Syncytial Virus Ce NEGATIVE (Negative); SARS-CoV-2 PCR NEGATIVE (Negative)
--- NOTE | 2025-09-01 19:45 | ED_ITS ---
HPI - SOB/Dyspnea 2 General: Chief Complaint: Shortness of Breath/Dyspnea Stated Complaint: Cyrus vicente poss PE Time Seen by Provider: 09/01/25 18:15 History of Present Illness: HPI Narrative: Patient is a 25-year-old female who presents with left shoulder blade pain and shortness of breath. She reports that the pain is primarily on the left side of her back near the shoulder blade. The pain is not tender to touch but is exacerbated by activity and certain positions. Patient reports difficulty with daily activities including holding doors open and pulling up pants after using the bathroom. She also notes significant pain when trying to get back into bed. The patient states she feels short of breath because she cannot take a deep breath due to pain. When the pain intensifies, she describes her whole body 'seizing up' and feeling tight, with associated chest tightness. The patient was initially seen at a clinic and noted uneven shoulders and was concerned about possible pulmonary embolism given the patient's history of blood clotting disorder and previous PE. The patient was sent directly from the clinic to the emergency department for further evaluation. Related Data Previous Rx's ?Medication ?Instructions ?Recorded valacyclovir 1 gram tablet 1,000 mg PO DAILY 30 days # 30 tabs 12/01/24 bumetanide 1 mg tablet 1 mg PO DAILY #30 tabs 05/25 buspirone 10 mg tablet 10 mg PO BID PRN insomnia or 05/25/25 anxiety #60 tabs carvedilol 3.125 mg tablet 3.125 mg PO BID #60 tabs enoxaparin 60 mg/0.6 mL 60 mg (0.6 mL) SUBCUT Q12H 3 0 days 05/25/25 subcutaneous syringe (Lovenox) #36 mL hydroxychloroquine 200 mg tablet 400 mg (2 x 200 mg) P O DAILY #60 05/25/25 tabs mycophenolate mofetil 500 mg tablet 500 mg PO DAILY #6 0 tabs 05/25/25 potassium chloride 10 mEq 10 meq PO DAILY #30 caps 01/13 capsule,extended release sacubitril 24 mg-valsartan 26 mg 1 tab PO BID #60 tabs 05/25/25 tablet (Entresto) hydrocodone 5 mg-acetaminophen 325 1 tab PO Q6H PRN pa in 7 days #28 09/01/25 mg tablet tabs tizanidine 6 mg capsule 6 mg PO Q8H PRN muscle spast icity 09/01/25 #10 caps Allergies Allergy/AdvReac Type Severity Reaction Status Date / Time metoclopramide (From Reglan) Allergy ADR-Anxiety Verified 09/01/25 18:07 PFSH ED 2 PFSH: Medical History (Updated 09/01/25 @ 21:00 by Rakesh Barahona DO) No pertinent past medical history neghx: htn, dm, thyori, dvt PCP: [facility] Antiphospholipid syndrome Generalized anxiety disorder History of suicidal ideation Ovarian cyst Lupus Mitral regurgitation severe Hx of streptococcal septicemia Abscess of aortic root hx of abscess aortic root Acid reflux no current sympotms. Heart failure Herpes Dysfunctional gallbladder History of bicuspid aortic valve Camron Sylvester endocarditis Surgical History S/P aortic valve replacement with bioprosthetic valve S/P CABG (coronary artery bypass graft) november 2022 History of tonsillectomy and adenoidectomy Family History Grandmother Stroke Grandmother Diabetes Other Breast cancer Lupus (systemic lupus erythematosus) Denies family history of Colon cancer Ovarian cancer Prostate cancer Heart disease Hypertension Uterine cancer Thyroid disease Social History Smoking and tobacco/nicotine status: current some day tobacco/nicotine user (vape) e-cigarettes E-Cigarette Details: vaporizer device Alcohol intake: current Alcohol intake frequency: holidays/special occasions only Substance/Drug Use: never Marital status: Single Number of children: 0 Current occupational status: employed 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 Female Reproductive History: Date of last menstrual period: 08/13/25 Physical Exam 2 Const: COMMON NORMALS: no acute distress GENERAL APPEARANCE: cooperative; not ill appearing and not frail appearing HENMT: COMMON NORMALS: normocephalic, atraumatic and Normal external nose present HEAD & SCALP: normocephalic and atraumatic FACE & SINUS: normal facial exam and face symmetric NOSE: Normal external nose present Eye: COMMON NORMALS: Equal, round and reactive pupils present and EOMs intact bilaterally PUPIL: Yes Equal, round and reactive pupils present Neck/C-Spine: GENERAL: Yes trachea midline Chest: CHEST: Yes Symmetrical chest wall rise Resp: COMMON NORMALS: normal respiratory effort, No retractions, No use of accessory muscles and clear to auscultation bilaterally AUSCULTATION: clear to auscultation bilaterally Cardio: COMMON NORMALS: regular rate and regular rhythm RATE: regular rate RHYTHM: regular rhythm GI: COMMON NORMALS: Normal to inspection, nondistended, normoactive bowel sounds present Extremity: COMMON NORMALS: no pedal edema Neuro: LONNY COMA SCALE: document GCS findings Lonny coma scale eye opening: Spontaneous Kathleen coma scale verbal response: Orientated Lonny coma scale motor response: Obey commands Kathleen coma scale total score: 15 S ENSORY EXAM: Yes extremities (intact) Psych: COMMON NORMALS: speech normal SPEECH: Yes normal speech Skin: COMMON NORMALS: no rashes or lesions noted GENERAL SKIN EXAM: no rashes or lesions noted Course 2 Vital Signs: Vital signs: Vital Signs Temperature 98.2 F 09/01/25 18:00 Pulse Rate 67 09/01/25 21:23 Respiratory Rate 16 09/01/25 21:09 Blood Pressure 112/72 09/01/25 21:23 Pulse Oximetry 100 09/01/25 21:23 Oxygen Delivery Me thod Room Air 09/01/25 20:00 MDM - SOB/Dyspnea Medical Decision Making EKG is nonacute. Hemoglobin is 11. Platelet count is 142. The patient is chronically on anticoagulants. BMP is normal. Lactic acid 0.9. Swabs are negative for flu COVID RSV. BNP is 1000. CTA of the chest shows left-sided streaky atelectasis. No pulmonary embolism, infiltrate, pneumothorax, aortic rupture or dissection, etc. She was counseled on her results. She has pain medication prescribed by the previous physician. Outpatient follow-up. Return for worsening symptoms. Stable for discharge. Lab Data 09/01/25 18:23 09/01/25 18:23 Labs/Radiology: Radiology Impressions Chest CTA 09/01/25 18:14 IMPRESSION: 1. No pulmonary embolism. 2. Left base streaky linear opacities characteristic of atelectasis or postinflammatory parenchymal scarring. Laboratory Results WBC 8.90 10^3/uL (3.29-11.43) 09/01/25 18:23 RBC 3.93 10^6/uL (3.85-5.65) 09/01/25 18:23 Hgb 10.90 g/dL (11.27-16.99) L 09/01/25 18:23 Hct 34.1 % (36-47) L 09/01/25 18:23 MCV 86.8 fl (85-98) 09/01/25 18:23 MCH 27.7 pg (27-33) 09/01/25 18: MCHC 32.0 g/dL (30-55) 09/01/25 18:23 RDW 12.3 % (12.1-15.1) 09/01/25 18:23 Plt Count 142 10^3/cmm (157-399) L 09/01/25 18:23 MPV 11.2 fL (7.4-10.4) H 09/01/25 18:23 Neut % (Auto) 67.0 % 09/01/25 18:23 Lymph % (Auto) 24.2 % 09/01/25 18:23 Meade % (Auto) 7.6 % 09/01/25 18:23 Eos % (Auto) 0.7 % 09/01/25 18:23 Baso % (Auto) 0.3 % 09/01/25 18:23 Neut # (Auto) 5.96 10^3/uL (1.8-7.7) 09/01/25 18:23 Lymph # (Auto) 2.2 10^3/uL (0.8-4.8) 09/01/25 18:23 Meade # (Auto) 0.7 10^3/uL (0.2-0.9) 09/01/25 18:23 Eos # (Auto) 0.1 10^3/uL (0.0-0.8) 09/01/25 18:23 Baso # (Auto) 0.0 10^3/uL (0.0-0.1) 09/01/25 18:23 Nucleated RBC % (auto) 0 % 09/01/25 18: Nucleated RBCs # 0.0 /100WBC 09/01/25 18:23 Sodium 140 mmol/L (136-145) 09/01/25 18:23 Potassium 3.8 mmol/L (3.5-5.1) 09/01/25 18:23 Chloride 105 mmol/L (98-107) 09/01/25 18:23 Carbon Dioxide 25 mmol/L (22-29) 09/01/25 18:23 Anion Gap 13.8 (5-19) 09/01/25 18:23 BUN 18 mg/dL (6-20) 09/01/25 18:23 Creatinine 0.7 mg/dL (0.5-0.9) 09/01/25 18:23 GFR Calculation 103.7 mL/min (90-130) 09/01/25 18:23 Glucose 88 mg/dL (65-115) 09/01/25 18:23 Calculated Osmolality 291 mOsm/kg (285-295) 09/01/25 18:23 Lactic Acid 0.9 mmol/L (0.5-2.2) 09/01/25 18:23 Calcium 9.2 mg/dL (8.5-10.5) 09/01/25 18:23 Total Bilirubin 0.8 mg/dL (0.15-1.2) 09/01/25 18:23 AST 23 U/L (0-32) 09/01/25 18:23 ALT 78 U/L (0-33) H 09/01/25 18:23 Alkaline Phosphatase 97 U/L (35-105) 09/01/25 18:23 NT-Pro-B Natriuret Pep 1025 pg/mL (0-125) H 09/01/25 18:23 Total Protein 7.0 g/dL (6.6-8.7) 09/01/25 18:23 Albumin 4.4 g/dL (3.5-5.2) 09/01/25 18:23 Globulin 2.6 g/dL (1.3-4.6) 09/01/25 18:23 HCG, Qual Negative (Negative) 09/01/25 18:23 Influenza A (PCR) Negative (Negative) 09/01/25 18:26 Influenza Type B (PCR) Negative (Negative) 09/01/25 18:26 RSV (PCR) Negative (Negative) 09/01/25 18:26 SARS-CoV-2 (PCR) Negative (Negative) 09/01/25 18:26 All radiology interpretation(s) finalized by discharge EKG Data EKG 1: Interpretation: EKG shows a sinus rhythm, rate of 75 axis is normal. She meets criteria for left ventricular hypertrophy. She has Q waves in [address] No acute ST-T wave segment changes. QTc is 416. Performed time 183, read 184. Discharge Plan Discharge Patient Disposition: Home Clinical Impression: Atypical chest pain Condition: Stable Prescriptions: New tizanidine 6 mg capsule 6 mg PO Q8H PRN (Reason: muscle spasticity) Qty: 10 0RF Discontinued cyclobenzaprine 5 mg tablet 5 mg PO TID PRN (Reason: muscle spasm) Qty: 45 0RF No Action hydrocodone-acetaminophen 5-325 mg tablet 1 tab PO Q6H PRN (Reason: pain) 7 Days Qty: 28 0RF valacyclovir 1 gram tablet 1,000 mg PO DAILY 30 Days Qty: 30 11RF mycophenolate mofetil 500 mg tablet 500 mg PO DAILY Qty: 60 1RF Rx Instructions: take once daily hydroxychloroquine 200 mg tablet 400 mg PO DAILY Qty: 60 1RF Rx Instructions: take two tabs once daily potassium chloride 10 mEq capsule, extended release 10 meq PO DAILY Qty: 30 11RF Entresto 24-26 mg tablet 1 tab PO BID Qty: 60 11RF enoxaparin [Lovenox] 60 mg/0.6 mL syringe 60 mg SUBCUT Q12H 30 Days Qty: 36 5RF Rx Instructions: INJECT 1 SYRINGE 60MG (0.6ML) SUBCUTANEOUSLY TWICE DAILY carvedilol 3.125 mg tablet 3.125 mg PO BID Qty: 60 11RF buspirone 10 mg tablet 10 mg PO BID PRN (Reason: insomnia or anxiety) Qty: 60 0RF bumetanide 1 mg tablet 1 mg PO DAILY Qty: 30 11RF Discharge Orders: Discharge ED (Routine); Ordered 09/01/25 Ordered By: Rakesh Barahona Referrals: Ortiz Berger NP [Primary Care Provider, Family Practice] - 1-3 days Patient Instructions: Chest Pain (ED), Opioid Safety, Pain Management, Patient Portal & Zackary Instructions Activity Restrictions/Additional Instructions: No specific cause of your chest and upper back discomfort was found by laboratory and imaging this evening. Take medication prescribed by your previous physician as directed. You were given 1 dose of steroid that lasts 4 days or so here as well. This can begin to help in a few hours. Return for worsening problems despite treatment. Follow-up with your doctor next week. Call Thursday for appointment. Print Language: Icelandic Coding Level of Care Code ED Commercial Escrow Assistant for Elizabeth Powers
== END 2025-09-01 21:24 | disposition home or self-care (01) ==
PROVIDERS: Emergency Provider Emergency Medicine; PCP Clinical Nurse Specialist Adult Health
DX: R07.89 Other chest pain (principal); Z11.52 Encounter for screening for COVID-19; F17.290 Nicotine dependence, other tobacco product, uncomplicated; I50.9 Heart failure, unspecified
CPT/HCPCS: 36415; 71275; 80053; 83605; 83880; 84703; 85025; 87040; 87637; 93005; 96374; 96375; 99285; J1100; J1885

== ENCOUNTER 2025-09-18 12:17 | Outpatient (CLI) | payer OTHER, SELFPAY ==
[2025-09-18 12:52] LABS: Hematocrit 35.4 % (36-47); Hemoglobin 11.60 g/dL (11.27-16.99); Mean Corpuscular HGB Conc 32.8 g/dL (30-55); Mean Corpuscular Hemoglobin 27.5 pg (27-33); Mean Corpuscular Volume 83.9 fl (85-98); Nucleated Red Blood Cells % 0 %; Platelet Count 98 10^3/cmm (157-399); Red Blood Count 4.22 10^6/uL (3.85-5.65); White Blood Count 6.90 10^3/uL (3.29-11.43)
[2025-09-18 13:02] LABS: Estmated Average Glucose 91; Hemoglobin A1C 4.8 % (4.0-6.0)
[2025-09-18 13:04] LABS: INR 1.12 (0.8-1.2); Prothrombin Time 15.20 SECONDS (12.1-14.9)
[2025-09-18 13:19] LABS: Alanine Aminotransferase 18 U/L (0-33); Albumin Level 4.2 g/dL (3.5-5.2); Alkaline Phosphatase 69 U/L (35-105); Anion Gap 14.9 (5-19); Aspartate Amino Transferase 19 U/L (0-32); Blood Urea Nitrogen 13 mg/dL (6-20); Calcium 9.0 mg/dL (8.5-10.5); Carbon Dioxide 22 mmol/L (22-29); Chloride 107 mmol/L (98-107); Globulin 2.4 g/dL (1.3-4.6); Glucose 93 mg/dL (65-115); NT Pro B Type Natriuretic Pept 1550 pg/mL (0-125); Osmolality Calculated 290 mOsm/kg (285-295); Potassium 3.9 mmol/L (3.5-5.1); Sodium 140 mmol/L (136-145); Total Protein 6.6 g/dL (6.6-8.7)
== END 2025-09-18 12:18 | disposition home or self-care (01) ==
LOC: LAB 12:20
PROVIDERS: PCP Clinical Nurse Specialist Adult Health; Visit Provider Internal Medicine Cardiovascular Disease
DX: R07.89 Other chest pain (principal)
CPT/HCPCS: 36415; 80053; 83036; 83695; 83880; 85025; 85610; 86140